=== PATIENT | female | born 1965 | race Caucasian/White ===

== ENCOUNTER 2020-07-13 12:02 | Outpatient (REF) | payer OTHER, SELFPAY ==
[2020-07-13 13:58] LABS: MANUAL DIFF FLAG NO
[2020-07-13 14:03] LABS: Basophils Percent Auto 0.6 % (0-2); Eosinophils Absolute Auto 0.2 X10*3/uL (0.0-0.4); Hematocrit 38.2 % (37-47); Hemoglobin 12.7 g/dl (12.0-16.0); Imm Gran Abs Auto 0.01 X10*3/uL (0.00-0.03); Imm Gran Pct Auto 0.2 % (0.0-0.4); Lymphocytes Absolute Auto 1.6 X10*3/uL (1.2-4.9); Lymphocytes Percent Auto 30.8 % (20-40); Mean Corpuscular HGB Conc 33.2 g/dl (31.0-35.0); Mean Corpuscular Hemoglobin 27.1 pg (27.0-33.0); Mean Corpuscular Volume 81.6 fL (80-98); Mean Platelet Volume 11.4 fL (9.4-12.3); Monocytes Absolute Auto 0.4 X10*3/uL (0.1-1.2); Monocytes Percent Auto 7.5 % (2-11); Neutrophils Percent Auto 56.9 % (45-73); Platelet Count 218 X10*3/uL (160-400); Red Blood Count 4.68 X10*6/uL (4.20-5.50); Red Cell Distribution Width 13.2 % (11.0-16.0); White Blood Count 5.2 X10*3/uL (4.8-10.8)
[2020-07-13 14:49] LABS: Creatinine Urine 82.07 mg/dL; Microalbum/Creatinine Ratio Ur 8.5 ug/mg cr
[2020-07-13 14:53] LABS: Anion Gap 13 (12-20); Blood Urea Nitrogen 15 mg/dL (9-16); Carbon Dioxide 26 mmol/L (22-29); Chloride 107 mmol/L (96-108); Cholesterol 117 mg/dL; Estimated Glomerular Filt Rate > 60; Glucose Fasting 87 mg/dL (60-99); HDL Cholesterol 40 mg/dL; LDL Cholesterol Calculated 63 mg/dl; Potassium 3.9 mmol/l (3.3-5.1); Sodium 142 mmol/L (135-145); Triglycerides 71 mg/dL
[2020-07-13 15:14] LABS: TSH reflex Free T4 0.78 mIU/mL (0.32-4.0)
[2020-07-13 15:20] LABS: Estimated Average Glucose 128 mg/dL; Hemoglobin A1C 148.6526 umol/L; Hemoglobin A1c % 6.1 %
== END 2020-07-13 12:03 | disposition home or self-care (01) ==
LOC: HO.LAB 12:02
PROVIDERS: Visit Provider Internal Medicine
DX: I10 Essential (primary) hypertension (principal); K21.9 Gastro-esophageal reflux disease without esophagitis; G47.9 Sleep disorder, unspecified; E03.9 Hypothyroidism, unspecified; F33.9 Major depressive disorder, recurrent, unspecified; E78.9 Disorder of lipoprotein metabolism, unspecified; E13.9 Other specified diabetes mellitus without complications
CPT/HCPCS: 36415; 80048; 80061; 82043; 83036; 84443; 85025

== ENCOUNTER 2020-09-28 07:40 | Outpatient (REF) | payer OTHER, SELFPAY ==
[2020-09-28 08:35] LABS: MANUAL DIFF FLAG NO
[2020-09-28 08:39] LABS: Basophils Percent Auto 0.9 % (0-2); Eosinophils Absolute Auto 0.2 X10*3/uL (0.0-0.4); Hematocrit 38.2 % (37-47); Hemoglobin 12.7 g/dl (12.0-16.0); Imm Gran Abs Auto 0.01 X10*3/uL (0.00-0.03); Imm Gran Pct Auto 0.2 % (0.0-0.4); Lymphocytes Absolute Auto 1.4 X10*3/uL (1.2-4.9); Lymphocytes Percent Auto 30.7 % (20-40); Mean Corpuscular HGB Conc 33.2 g/dl (31.0-35.0); Mean Corpuscular Hemoglobin 27.2 pg (27.0-33.0); Mean Corpuscular Volume 81.8 fL (80-98); Mean Platelet Volume 10.9 fL (9.4-12.3); Monocytes Absolute Auto 0.4 X10*3/uL (0.1-1.2); Monocytes Percent Auto 8.5 % (2-11); Neutrophils Absolute Auto 2.5 X10*3/uL (2.0-8.3); Neutrophils Percent Auto 54.7 % (45-73); Platelet Count 244 X10*3/uL (160-400); Red Blood Count 4.67 X10*6/uL (4.20-5.50); Red Cell Distribution Width 12.7 % (11.0-16.0); White Blood Count 4.6 X10*3/uL (4.8-10.8)
[2020-09-28 08:43] LABS: Glucose Urine UA NEG (NEG); Leukocyte Esterase Urine NEG (NEG); Nitrite Urine NEG (NEG); PH 5.5 (5.0-8.0); Specific Gravity - Urine 1.025 (1.005-1.025); Urine Blood NEG (NEG); Urine Ketones NEG (NEG); Urine Protein NEG (NEG-TRACE)
[2020-09-28 08:47] LABS: Appearance Urine CLEAR; Color Urine YELLOW
[2020-09-28 09:03] LABS: Alanine Aminotransferase 46 U/L (0-31); Albumin Level 4.3 g/dL (3.5-5.0); Alkaline Phosphatase 91 U/L (39-117); Anion Gap 10 (12-20); Aspartate Amino Transferase 27 U/L (5-31); Bilirubin Total 0.4 mg/dL (0.0-1.0); Blood Urea Nitrogen 18 mg/dL (9-16); Calcium 8.8 mg/dL (8.4-10.2); Carbon Dioxide 28 mmol/L (22-29); Chloride 108 mmol/L (96-108); Cholesterol 129 mg/dL; Estimated Glomerular Filt Rate > 60; Glucose Fasting 133 mg/dL (60-99); HDL Cholesterol 42 mg/dL; LDL Cholesterol Calculated 65 mg/dl; Potassium 4.1 mmol/l (3.3-5.1); Sodium 142 mmol/L (135-145); Total Protein 7.1 g/dL (6.5-8.0); Triglycerides 111 mg/dL
[2020-09-28 09:27] LABS: Free T4 (Free Thyroxine) 0.94 ng/dL (0.71-1.85); Thyroid Stimulating Hormone 3.54 uIU/mL (0.32-4.0)
[2020-09-28 22:03] LABS: Creatinine Urine 110.71 mg/dL; Microalbum/Creatinine Ratio Ur 10.8 ug/mg cr
== END 2020-09-28 07:41 | disposition home or self-care (01) ==
LOC: HO.LAB 07:40
PROVIDERS: Visit Provider Internal Medicine
DX: I10 Essential (primary) hypertension (principal); E78.00 Pure hypercholesterolemia, unspecified; E03.9 Hypothyroidism, unspecified; E11.9 Type 2 diabetes mellitus without complications
CPT/HCPCS: 36415; 80053; 80061; 81003; 82043; 84439; 84443; 85025

== ENCOUNTER → 2020-10-19 08:34 | Outpatient (BNVA) | payer OTHER, SELFPAY | PROVIDERS: PCP Internal Medicine; Visit Provider Internal Medicine Endocrinology, Diabetes & Metabolism | DX: E11.21 Type 2 diabetes mellitus with diabetic nephropathy (principal); E11.3293 Type 2 diabetes mellitus with mild nonproliferative diabetic retinopathy without macular edema, bilateral; Z79.4 Long term (current) use of insulin; I10 Essential (primary) hypertension; E78.00 Pure hypercholesterolemia, unspecified; E89.0 Postprocedural hypothyroidism | CPT/HCPCS: 82947; 99212 ==

== ENCOUNTER 2020-11-30 08:43 | Outpatient (REF) | payer OTHER, SELFPAY ==
[2020-11-30 17:29] LABS: CT PCR NOT DETECTED (Not Detect.); NG PCR NOT DETECTED (Not Detect.)
[2020-12-01 09:03] LABS: BV Int Neg Control Negative (Negative); BV Int Pos Control Positive (Positive)
== END 2020-11-30 08:44 | disposition home or self-care (01) ==
LOC: HO.LAB 08:43
PROVIDERS: Visit Provider Advanced Practice Midwife
DX: Z01.419 Encounter for gynecological examination (general) (routine) without abnormal findings (principal); E11.9 Type 2 diabetes mellitus without complications; Z79.899 Other long term (current) drug therapy; Z78.0 Asymptomatic menopausal state; Z79.4 Long term (current) use of insulin; Z11.3 Encounter for screening for infections with a predominantly sexual mode of transmission
CPT/HCPCS: 87480; 87491; 87510; 87591; 87660

== ENCOUNTER → 2020-12-07 08:19 | Outpatient (BNVA) | payer OTHER, SELFPAY | PROVIDERS: PCP Internal Medicine; Visit Provider Nurse Practitioner Gerontology | DX: E11.21 Type 2 diabetes mellitus with diabetic nephropathy (principal); Z79.4 Long term (current) use of insulin; I10 Essential (primary) hypertension | CPT/HCPCS: 82947; 99212 ==

== ENCOUNTER → 2020-12-22 07:45 | Outpatient (BNVA) | payer OTHER, SELFPAY | PROVIDERS: PCP Internal Medicine; Visit Provider Internal Medicine Endocrinology, Diabetes & Metabolism | DX: E11.3293 Type 2 diabetes mellitus with mild nonproliferative diabetic retinopathy without macular edema, bilateral (principal); E11.21 Type 2 diabetes mellitus with diabetic nephropathy; Z79.4 Long term (current) use of insulin; I10 Essential (primary) hypertension; E78.00 Pure hypercholesterolemia, unspecified; E89.0 Postprocedural hypothyroidism | CPT/HCPCS: 82947; 99212 ==

== ENCOUNTER 2021-02-22 07:29 | Outpatient (REF) | payer OTHER, SELFPAY ==
[2021-02-22 08:30] LABS: MANUAL DIFF FLAG NO
[2021-02-22 08:37] LABS: Basophils Percent Auto 0.4 % (0-2); Eosinophils Absolute Auto 0.2 X10*3/uL (0.0-0.4); Eosinophils Percent Auto 2.1 % (0-4); Hematocrit 39.1 % (37-47); Imm Gran Abs Auto 0.01 X10*3/uL (0.00-0.03); Imm Gran Pct Auto 0.1 % (0.0-0.4); Lymphocytes Absolute Auto 1.4 X10*3/uL (1.2-4.9); Lymphocytes Percent Auto 19.3 % (20-40); Mean Corpuscular HGB Conc 33.2 g/dl (31.0-35.0); Mean Corpuscular Hemoglobin 26.8 pg (27.0-33.0); Mean Corpuscular Volume 80.6 fL (80-98); Mean Platelet Volume 11.1 fL (9.4-12.3); Monocytes Absolute Auto 0.4 X10*3/uL (0.1-1.2); Neutrophils Absolute Auto 5.2 X10*3/uL (2.0-8.3); Neutrophils Percent Auto 72.1 % (45-73); Platelet Count 247 X10*3/uL (160-400); Red Blood Count 4.85 X10*6/uL (4.20-5.50); Red Cell Distribution Width 13.9 % (11.0-16.0); White Blood Count 7.2 X10*3/uL (4.8-10.8)
[2021-02-22 08:50] LABS: Estimated Average Glucose 146 mg/dL; Hemoglobin A1c % 6.7 %
[2021-02-22 08:56] LABS: Alanine Aminotransferase 21 U/L (0-31); Albumin Level 4.5 g/dL (3.5-5.0); Alkaline Phosphatase 85 U/L (39-117); Anion Gap 12 (12-20); Aspartate Amino Transferase 21 U/L (5-31); Bilirubin Total 0.9 mg/dL (0.0-1.0); Blood Urea Nitrogen 15 mg/dL (9-16); Calcium 9.4 mg/dL (8.4-10.2); Carbon Dioxide 26 mmol/L (22-29); Chloride 106 mmol/L (96-108); Cholesterol 127 mg/dL; Estimated Glomerular Filt Rate > 60; Glucose Fasting 128 mg/dL (60-99); HDL Cholesterol 42 mg/dL; LDL Cholesterol Calculated 73 mg/dl; Potassium 3.9 mmol/L (3.3-5.1); Sodium 140 mmol/L (135-145); Total Protein 7.4 g/dL (6.5-8.0); Triglycerides 64 mg/dL
[2021-02-22 09:01] LABS: Glucose Urine UA NEG (NEG); Leukocyte Esterase Urine NEG (NEG); Nitrite Urine NEG (NEG); Urine Blood NEG (NEG); Urine Ketones NEG (NEG); Urine Protein NEG (NEG-TRACE)
[2021-02-22 09:04] LABS: Appearance Urine HAZY; Color Urine YELLOW
[2021-02-22 09:15] LABS: Creatinine Urine 194.49 mg/dL; Microalbum/Creatinine Ratio Ur 12.8 ug/mg cr
[2021-02-22 09:31] LABS: Thyroid Stimulating Hormone 1.99 uIU/mL (0.32-4.0)
== END 2021-02-22 07:30 | disposition home or self-care (01) ==
LOC: HO.LAB 07:29
PROVIDERS: PCP Internal Medicine; Visit Provider Internal Medicine
DX: I10 Essential (primary) hypertension (principal); K21.9 Gastro-esophageal reflux disease without esophagitis; E78.00 Pure hypercholesterolemia, unspecified; E11.9 Type 2 diabetes mellitus without complications; E89.0 Postprocedural hypothyroidism; E66.3 Overweight; Z79.4 Long term (current) use of insulin
CPT/HCPCS: 36415; 80053; 80061; 81003; 82043; 83036; 84439; 84443; 85025

== ENCOUNTER 2021-04-05 13:19 | Outpatient (REF) | payer OTHER, SELFPAY ==
--- NOTE | ~2021-04-05 | MM_ITS ---
EXAMINATION: MM SCREENING DIGITAL BREAST TOMOSYNTHESIS, BILATERAL CLINICAL INFORMATION: Screening. Asymptomatic. The lifetime risk of breast cancer based on the Tyrer-Cuzick Model is 8%. COMPARISON: Mammography: 01/27/2020, 01/24/2019, 07/26/2018, 01/25/2018, 01/11/2018 TECHNIQUE: Digital breast tomosynthesis is performed in both the craniocaudal and mediolateral oblique views along with computer-aided detection (CAD). Synthesized 2D images are generated from the tomosynthesis. FINDINGS: There are scattered areas of fibroglandular density (ACR BI-RADS breast composition Category b). There are no significant masses, abnormal calcifications, or other abnormalities. No developing density. Skin contours are smooth. No significant changes. MM/MM tomosynthesis screening BI IMPRESSION: No mammographic evidence of malignancy. ASSESSMENT: BI-RADS 1: Negative RECOMMENDATION: Routine annual mammography screening. This patient's information was entered into a reminder system with a target due date for their next mammogram.
== END 2021-04-05 13:20 | disposition home or self-care (01) ==
LOC: HO.MAMMO 13:19
PROVIDERS: Visit Provider Internal Medicine
DX: Z12.31 Encounter for screening mammogram for malignant neoplasm of breast (principal)
CPT/HCPCS: 77063; 77067

== ENCOUNTER → 2021-07-05 07:52 | Outpatient (BNVA) | payer OTHER, SELFPAY | PROVIDERS: PCP Internal Medicine; Visit Provider Nurse Practitioner Gerontology | DX: E11.21 Type 2 diabetes mellitus with diabetic nephropathy (principal); E11.65 Type 2 diabetes mellitus with hyperglycemia; E78.00 Pure hypercholesterolemia, unspecified; E89.0 Postprocedural hypothyroidism; E66.09 Other obesity due to excess calories; I10 Essential (primary) hypertension; Z79.4 Long term (current) use of insulin; Z68.30 Body mass index [BMI] 30.0-30.9, adult | CPT/HCPCS: 82947; 83036; 99212 ==

== ENCOUNTER → 2021-10-25 08:16 | Outpatient (BNVA) | payer OTHER, SELFPAY | PROVIDERS: PCP Internal Medicine; Visit Provider Nurse Practitioner Gerontology | DX: E11.65 Type 2 diabetes mellitus with hyperglycemia (principal); E11.21 Type 2 diabetes mellitus with diabetic nephropathy; E78.00 Pure hypercholesterolemia, unspecified; I10 Essential (primary) hypertension; Z79.4 Long term (current) use of insulin; E89.0 Postprocedural hypothyroidism; E66.09 Other obesity due to excess calories; Z68.29 Body mass index [BMI] 29.0-29.9, adult | CPT/HCPCS: 82947; 99212 ==

== ENCOUNTER 2021-10-29 09:02 | Outpatient (REF) | payer OTHER, SELFPAY ==
[2021-10-29 10:39] LABS: Vitamin D 25-OH Total 42.7 ng/mL (>30)
== END 2021-10-29 09:03 | disposition home or self-care (01) ==
LOC: HO.LAB 09:02
PROVIDERS: PCP Internal Medicine Endocrinology, Diabetes & Metabolism; Visit Provider Nurse Practitioner Gerontology
DX: E55.9 Vitamin D deficiency, unspecified (principal)
CPT/HCPCS: 36415; 82306

== ENCOUNTER → 2021-12-06 09:29 | Outpatient (BNVA) | payer OTHER, SELFPAY | PROVIDERS: Visit Provider Advanced Practice Midwife | DX: Z13.89 Encounter for screening for other disorder (principal) ==

== ENCOUNTER → 2022-01-24 12:45 | Outpatient (BNVA) | payer OTHER, SELFPAY | PROVIDERS: PCP Internal Medicine; Visit Provider Nurse Practitioner Gerontology | DX: E11.65 Type 2 diabetes mellitus with hyperglycemia (principal); E11.21 Type 2 diabetes mellitus with diabetic nephropathy; E78.00 Pure hypercholesterolemia, unspecified; E89.0 Postprocedural hypothyroidism; E66.09 Other obesity due to excess calories; I10 Essential (primary) hypertension; Z79.4 Long term (current) use of insulin; Z68.29 Body mass index [BMI] 29.0-29.9, adult | CPT/HCPCS: 82947; 83036; 99212 ==

== ENCOUNTER 2022-03-07 07:38 | Outpatient (REF) | payer OTHER, SELFPAY ==
[2022-03-07 07:56] LABS: MANUAL DIFF FLAG NO
[2022-03-07 08:19] LABS: Basophils Percent Auto 0.4 % (0-2); Eosinophils Absolute Auto 0.1 X10*3/uL (0.0-0.4); Eosinophils Percent Auto 2.7 % (0-4); Hematocrit 38.5 % (37.0-47.0); Hemoglobin 12.6 g/dl (12.0-16.0); Imm Gran Abs Auto 0.01 X10*3/uL (0.00-0.03); Imm Gran Pct Auto 0.2 % (0.0-0.4); Lymphocytes Absolute Auto 1.2 X10*3/uL (1.2-4.9); Lymphocytes Percent Auto 24.7 % (20-40); Mean Corpuscular HGB Conc 32.7 g/dl (31.0-35.0); Mean Corpuscular Hemoglobin 26.5 pg (27.0-33.0); Mean Corpuscular Volume 80.9 fL (80.0-98.0); Mean Platelet Volume 10.8 fL (9.4-12.3); Monocytes Absolute Auto 0.4 X10*3/uL (0.1-1.2); Monocytes Percent Auto 8.2 % (2-11); Neutrophils Absolute Auto 3.1 x10*3/uL (2.0-8.3); Neutrophils Percent Auto 63.8 % (45-73); Platelet Count 223 X10*3/uL (160-400); Red Blood Count 4.76 X10*6/uL (4.20-5.50); Red Cell Distribution Width 13.9 % (11.0-16.0); White Blood Count 4.8 X10*3/uL (4.8-10.8)
[2022-03-07 08:35] LABS: Appearance Urine HAZY; Color Urine YELLOW; Glucose Urine UA NEG (NEG); Leukocyte Esterase Urine NEG (NEG); Nitrite Urine NEG (NEG); Specific Gravity - Urine 1.015 (1.005-1.025); Urine Blood NEG (NEG); Urine Ketones NEG (NEG); Urine Protein NEG (NEG-TRACE)
[2022-03-07 08:43] LABS: Alanine Aminotransferase 24 U/L (0-31); Albumin Level 4.2 g/dL (3.5-5.0); Alkaline Phosphatase 92 U/L (39-117); Anion Gap 11 (12-20); Aspartate Amino Transferase 20 U/L (5-31); Bilirubin Total 0.5 mg/dL (0.0-1.0); Blood Urea Nitrogen 21 mg/dL (9-16); Calcium 9.2 mg/dL (8.4-10.2); Carbon Dioxide 26 mmol/L (22-29); Chloride 108 mmol/L (96-108); Cholesterol 114 mg/dL; Estimated Glomerular Filt Rate > 60; Glucose Fasting 119 mg/dL (60-99); HDL Cholesterol 39 mg/dL; LDL Cholesterol Calculated 63 mg/dl; Potassium 4.6 mmol/L (3.3-5.1); Sodium 140 mmol/L (135-145); Total Protein 6.8 g/dL (6.5-8.0); Triglycerides 61 mg/dL
[2022-03-07 08:57] LABS: Creatinine Urine 77.52 mg/dL; Microalbumin Urine < 5.0 mg/L
[2022-03-07 09:05] LABS: Free T4 (Free Thyroxine) 0.96 ng/dL (0.71-1.85)
[2022-03-07 09:06] LABS: Thyroid Stimulating Hormone 1.32 uIU/mL (0.32-4.0); Vitamin D 25-OH Total 38.5 ng/mL (>30)
[2022-03-08 23:51] LABS: LDL Cholesterol Direct 65 mg/dL (<100)
== END 2022-03-07 07:39 | disposition home or self-care (01) ==
LOC: HO.LAB 07:38
PROVIDERS: Nurse Practitioner Gerontology; PCP Internal Medicine; Visit Provider Internal Medicine
DX: E11.65 Type 2 diabetes mellitus with hyperglycemia (principal); E55.9 Vitamin D deficiency, unspecified; I10 Essential (primary) hypertension; Z79.4 Long term (current) use of insulin
CPT/HCPCS: 36415; 80053; 80061; 81003; 82043; 82306; 83721; 84439; 84443; 85025

== ENCOUNTER 2022-04-11 10:17 | Outpatient (REF) | payer OTHER, SELFPAY ==
--- NOTE | ~2022-04-11 | MM_ITS ---
EXAMINATION: MM SCREENING DIGITAL BREAST TOMOSYNTHESIS, BILATERAL CLINICAL INFORMATION: Screening. Asymptomatic. The lifetime risk of breast cancer based on the Tyrer-Cuzick Model is 6%. COMPARISON: Mammography: 04/05/2021, 01/27/2020, 01/24/2019 TECHNIQUE: Digital breast tomosynthesis is performed in both the craniocaudal and mediolateral oblique views along with computer-aided detection (CAD). Synthesized 2D images are generated from the tomosynthesis. Additional left CC view is provided. FINDINGS: There are scattered areas of fibroglandular density (ACR BI-RADS breast composition Category b). There are no significant masses, abnormal calcifications, or other abnormalities. No architectural abnormality or developing density or significant changes. MM/MM tomosynthesis screening BI IMPRESSION: No mammographic evidence of malignancy. ASSESSMENT: BI-RADS 1: Negative RECOMMENDATION: Routine annual mammography screening. This patient's information was entered into a reminder system with a target due date for their next mammogram.
== END 2022-04-11 10:18 | disposition home or self-care (01) ==
LOC: HO.MAMMO 10:17
PROVIDERS: PCP Internal Medicine; Visit Provider Internal Medicine
DX: Z12.31 Encounter for screening mammogram for malignant neoplasm of breast (principal)
CPT/HCPCS: 77063; 77067

== ENCOUNTER 2022-07-11 09:14 | Outpatient (REF) | payer OTHER, SELFPAY ==
[2022-07-11 09:22] LABS: MANUAL DIFF FLAG NO
[2022-07-11 10:48] LABS: Basophils Percent Auto 0.7 % (0-2); Eosinophils Absolute Auto 0.2 X10*3/uL (0.0-0.4); Eosinophils Percent Auto 2.9 % (0-4); Hematocrit 38.8 % (37.0-47.0); Imm Gran Abs Auto 0.02 X10*3/uL (0.00-0.03); Imm Gran Pct Auto 0.3 % (0.0-0.4); Lymphocytes Absolute Auto 1.4 X10*3/uL (1.2-4.9); Lymphocytes Percent Auto 24.1 % (20-40); Mean Corpuscular HGB Conc 33.5 g/dl (31.0-35.0); Mean Corpuscular Hemoglobin 26.5 pg (27.0-33.0); Mean Corpuscular Volume 79.2 fL (80.0-98.0); Mean Platelet Volume 11.2 fL (9.4-12.3); Monocytes Absolute Auto 0.4 X10*3/uL (0.1-1.2); Monocytes Percent Auto 6.7 % (2-11); Neutrophils Absolute Auto 3.8 x10*3/uL (2.0-8.3); Neutrophils Percent Auto 65.3 % (45-73); Platelet Count 224 X10*3/uL (160-400); Red Cell Distribution Width 13.4 % (11.0-16.0); White Blood Count 5.8 X10*3/uL (4.8-10.8)
[2022-07-11 10:53] LABS: Appearance Urine Clear; Color Urine Yellow; Glucose Urine UA Negative (Negative); Leukocyte Esterase Urine Negative (Negative); Nitrite Urine Negative (Negative); Specific Gravity - Urine 1.015 (1.005-1.025); Urine Blood Negative (Negative); Urine Ketones Negative (Negative); Urine Protein Negative (Neg-Trace)
[2022-07-11 11:05] LABS: Estimated Average Glucose 151 mg/dL; Hemoglobin A1c % 6.9 %
[2022-07-11 11:22] LABS: Alanine Aminotransferase 24 U/L (0-31); Albumin Level 4.5 g/dL (3.5-5.0); Alkaline Phosphatase 99 U/L (39-117); Anion Gap 13 (12-20); Aspartate Amino Transferase 19 U/L (5-31); Bilirubin Total 0.4 mg/dL (0.0-1.0); Blood Urea Nitrogen 20 mg/dL (9-16); Calcium 9.1 mg/dL (8.4-10.2); Carbon Dioxide 25 mmol/L (22-29); Chloride 108 mmol/L (96-108); Cholesterol 120 mg/dL; Estimated Glomerular Filt Rate > 60; Glucose Fasting 104 mg/dL (60-99); HDL Cholesterol 41 mg/dL; LDL Cholesterol Calculated 68 mg/dl; Potassium 4.3 mmol/L (3.3-5.1); Sodium 142 mmol/L (135-145); Total Protein 7.1 g/dL (6.5-8.0); Triglycerides 57 mg/dL
[2022-07-11 11:43] LABS: Free T4 (Free Thyroxine) 0.97 ng/dL (0.71-1.85); Thyroid Stimulating Hormone 1.42 uIU/mL (0.32-4.0); Vitamin D 25-OH Total 40.6 ng/mL (>30)
[2022-07-11 12:28] LABS: Creatinine Urine 67.96 mg/dL; Microalbumin Urine < 5.0 mg/L
== END 2022-07-11 09:15 | disposition home or self-care (01) ==
LOC: HO.LAB 09:14
PROVIDERS: PCP Internal Medicine; Visit Provider Internal Medicine
DX: E11.9 Type 2 diabetes mellitus without complications (principal); I10 Essential (primary) hypertension; E03.9 Hypothyroidism, unspecified; E78.00 Pure hypercholesterolemia, unspecified; E55.9 Vitamin D deficiency, unspecified
CPT/HCPCS: 36415; 80053; 80061; 81003; 82043; 82306; 83036; 84439; 84443; 85025

== ENCOUNTER 2022-07-18 13:52 | Outpatient (REF) | payer OTHER, SELFPAY ==
--- NOTE | ~2022-07-18 | XR_ITS ---
EXAMINATION: XR LUMBOSACRAL SPINE CLINICAL INFORMATION: Low back pain. COMPARISON: None TECHNIQUE: Three views of the lumbosacral spine. FINDINGS: There are 5 [id number]-[id number] lumbar vertebra. No acute fracture, spondylolisthesis, or spondylolysis is identified. Pedicles are intact. No significant sacroiliac joint abnormality seen. There is narrowing of the L4-L5 and L5-S1 disc spaces with some marginal spurring. There is facet arthropathy seen bilaterally at the L5-S1 level. XR/XR lumbar spine 2-3V IMPRESSION: Lumbar spondylosis at L4 through S1 as described.
== END 2022-07-18 13:53 | disposition home or self-care (01) ==
LOC: HO.XRAY 13:52
PROVIDERS: PCP Internal Medicine; Visit Provider Internal Medicine
DX: M54.50 Low back pain, unspecified (principal)
CPT/HCPCS: 72100

== ENCOUNTER 2022-11-07 07:01 | Outpatient (REF) | payer OTHER, SELFPAY ==
[2022-11-07 07:11] LABS: MANUAL DIFF FLAG NO
[2022-11-07 07:44] LABS: Basophils Percent Auto 0.7 % (0-2); Eosinophils Absolute Auto 0.3 X10*3/uL (0.0-0.4); Eosinophils Percent Auto 5.1 % (0-4); Hematocrit 38.2 % (37.0-47.0); Hemoglobin 12.6 g/dl (12.0-16.0); Imm Gran Abs Auto 0.04 X10*3/uL (0.00-0.03); Imm Gran Pct Auto 0.7 % (0.0-0.4); Lymphocytes Absolute Auto 1.4 X10*3/uL (1.2-4.9); Lymphocytes Percent Auto 24.9 % (20-40); Mean Corpuscular Volume 78.9 fL (80.0-98.0); Mean Platelet Volume 11.1 fL (9.4-12.3); Monocytes Absolute Auto 0.4 X10*3/uL (0.1-1.2); Monocytes Percent Auto 7.9 % (2-11); Neutrophils Absolute Auto 3.3 x10*3/uL (2.0-8.3); Neutrophils Percent Auto 60.7 % (45-73); Platelet Count 232 X10*3/uL (160-400); Red Blood Count 4.84 X10*6/uL (4.20-5.50); Red Cell Distribution Width 13.5 % (11.0-16.0); White Blood Count 5.5 X10*3/uL (4.8-10.8)
[2022-11-07 07:53] LABS: Estimated Average Glucose 151 mg/dL; Hemoglobin A1c % 6.9 %
[2022-11-07 08:20] LABS: Appearance Urine Clear; Color Urine Yellow; Glucose Urine UA Negative (Negative); Leukocyte Esterase Urine Negative (Negative); Nitrite Urine Negative (Negative); Urine Blood Negative (Negative); Urine Ketones Negative (Negative); Urine Protein Negative (Neg-Trace)
[2022-11-07 08:24] LABS: Alanine Aminotransferase 20 U/L (0-31); Albumin Level 4.1 g/dL (3.5-5.0); Alkaline Phosphatase 113 U/L (39-117); Anion Gap 11 (12-20); Aspartate Amino Transferase 17 U/L (5-31); Bilirubin Total 0.5 mg/dL (0.0-1.0); Blood Urea Nitrogen 18 mg/dL (9-16); Calcium 8.8 mg/dL (8.4-10.2); Carbon Dioxide 26 mmol/L (22-29); Chloride 108 mmol/L (96-108); Cholesterol 110 mg/dL; Estimated Glomerular Filt Rate > 60; Glucose Fasting 184 mg/dL (60-99); HDL Cholesterol 36 mg/dL; LDL Cholesterol Calculated 63 mg/dl; Potassium 4.2 mmol/L (3.3-5.1); Sodium 141 mmol/L (135-145); Total Protein 6.7 g/dL (6.5-8.0); Triglycerides 56 mg/dL
[2022-11-07 08:44] LABS: Free T4 (Free Thyroxine) 0.99 ng/dL (0.71-1.85); Thyroid Stimulating Hormone 1.66 uIU/mL (0.32-4.0); Vitamin D 25-OH Total 40.5 ng/mL (>30)
[2022-11-07 08:46] LABS: Creatinine Urine 96.38 mg/dL; Microalbum/Creatinine Ratio Ur 8.3 ug/mg cr
== END 2022-11-07 07:02 | disposition home or self-care (01) ==
LOC: HO.LAB 07:01
PROVIDERS: PCP Internal Medicine; Visit Provider Internal Medicine
DX: E11.9 Type 2 diabetes mellitus without complications (principal); E03.9 Hypothyroidism, unspecified; E78.00 Pure hypercholesterolemia, unspecified; R30.0 Dysuria; E55.9 Vitamin D deficiency, unspecified; I10 Essential (primary) hypertension
CPT/HCPCS: 36415; 80053; 80061; 81003; 82043; 82306; 83036; 84439; 84443; 85025

== ENCOUNTER 2023-04-21 09:34 | Outpatient (REF) | payer OTHER, SELFPAY ==
--- NOTE | ~2023-04-21 | MM_ITS ---
EXAMINATION: MM SCREENING DIGITAL BREAST TOMOSYNTHESIS, BILATERAL CLINICAL INFORMATION: Screening. Asymptomatic. The lifetime risk of breast cancer based on the Tyrer-Cuzick Model is 6.8%. COMPARISON: Mammography: This study is compared with prior exams dating back to 2018. TECHNIQUE: Digital breast tomosynthesis is performed in both the craniocaudal and mediolateral oblique views along with computer-aided detection (CAD). Synthesized 2D images are generated from the tomosynthesis. FINDINGS: There are scattered areas of fibroglandular density (ACR BI-RADS breast composition Category b). There are no significant masses, abnormal calcifications, or other abnormalities. MM/MM tomosynthesis screening BI IMPRESSION: No mammographic evidence of malignancy. ASSESSMENT: BI-RADS BI-RADS 1 - Negative RECOMMENDATION: Routine annual mammography screening. 1 year F/U This examination should not preclude the clinical evaluation of a suspicious palpable abnormality. This patient's information was entered into a reminder system with a target due date for their next mammogram.
== END 2023-04-21 09:35 | disposition home or self-care (01) ==
LOC: HO.MAMMO 09:34
PROVIDERS: PCP Internal Medicine; Visit Provider Internal Medicine
DX: Z12.31 Encounter for screening mammogram for malignant neoplasm of breast (principal)
CPT/HCPCS: 77063; 77067

== ENCOUNTER → 2023-04-21 10:00 | Outpatient (BNV) | payer OTHER, SELFPAY | PROVIDERS: PCP Internal Medicine; Visit Provider Radiology Diagnostic Radiology | DX: Z12.31 Encounter for screening mammogram for malignant neoplasm of breast (principal) | CPT/HCPCS: 77063; 77067 ==

== ENCOUNTER → 2023-04-28 13:09 | Outpatient (BNVA) | payer OTHER, SELFPAY | PROVIDERS: PCP Internal Medicine; Visit Provider Advanced Practice Midwife ==

== ENCOUNTER 2023-05-19 08:09 | Outpatient (REF) | payer OTHER, SELFPAY ==
[2023-05-19 08:20] LABS: MANUAL DIFF FLAG NO
[2023-05-19 08:35] LABS: Basophils Absolute Auto 0.1 X10*3/uL (0.0-0.2); Eosinophils Absolute Auto 0.2 X10*3/uL (0.0-0.4); Eosinophils Percent Auto 4.3 % (0-4); Hematocrit 38.5 % (37.0-47.0); Hemoglobin 12.9 g/dl (12.0-16.0); Imm Gran Abs Auto 0.01 X10*3/uL (0.00-0.03); Imm Gran Pct Auto 0.2 % (0.0-0.4); Lymphocytes Absolute Auto 1.4 X10*3/uL (1.2-4.9); Lymphocytes Percent Auto 27.4 % (20-40); Mean Corpuscular HGB Conc 33.5 g/dl (31.0-35.0); Mean Corpuscular Hemoglobin 27.2 pg (27.0-33.0); Mean Corpuscular Volume 81.1 fL (80.0-98.0); Monocytes Absolute Auto 0.4 X10*3/uL (0.1-1.2); Monocytes Percent Auto 7.8 % (2-11); Neutrophils Absolute Auto 3.1 x10*3/uL (2.0-8.3); Neutrophils Percent Auto 59.3 % (45-73); Platelet Count 223 X10*3/uL (160-400); Red Blood Count 4.75 X10*6/uL (4.20-5.50); Red Cell Distribution Width 13.4 % (11.0-16.0); White Blood Count 5.1 X10*3/uL (4.8-10.8)
[2023-05-19 08:43] LABS: Estimated Average Glucose 134 mg/dL; Hemoglobin A1c % 6.3 % (<6.0)
[2023-05-19 10:02] LABS: Alanine Aminotransferase 24 U/L (0-31); Albumin Level 4.3 g/dL (3.5-5.0); Alkaline Phosphatase 91 U/L (39-117); Anion Gap 14 (12-20); Aspartate Amino Transferase 23 U/L (5-31); Bilirubin Total 0.6 mg/dL (0.0-1.0); Blood Urea Nitrogen 14 mg/dL (9-16); Calcium 9.5 mg/dL (8.4-10.2); Carbon Dioxide 23 mmol/L (22-29); Chloride 107 mmol/L (96-108); Cholesterol 116 mg/dL (<200); Estimated Glomerular Filt Rate > 60; Glucose Fasting 111 mg/dL (60-99); HDL Cholesterol 41 mg/dL (>40); LDL Cholesterol Calculated 61 mg/dL (<100); Potassium 3.8 mmol/L (3.3-5.1); Sodium 140 mmol/L (135-145); Total Protein 7.3 g/dL (6.5-8.0); Triglycerides 71 mg/dL (<150)
[2023-05-19 10:03] LABS: Appearance Urine Clear; Color Urine Yellow; Glucose Urine UA Negative (Negative); Leukocyte Esterase Urine Negative (Negative); Nitrite Urine Negative (Negative); Specific Gravity - Urine 1.015 (1.005-1.025); Urine Blood Negative (Negative); Urine Ketones Negative (Negative); Urine Protein Negative (Neg-Trace)
[2023-05-19 10:19] LABS: Free T4 (Free Thyroxine) 0.86 ng/dL (0.71-1.85); Thyroid Stimulating Hormone 1.83 uIU/mL (0.32-4.0); Vitamin D 25-OH Total 46.1 ng/mL (>30)
[2023-05-19 10:48] LABS: Creatinine Urine 93.23 mg/dL; Microalbum/Creatinine Ratio Ur 5.3 ug/mg cr (<30)
== END 2023-05-19 08:10 | disposition home or self-care (01) ==
LOC: HO.LAB 08:09
PROVIDERS: PCP Internal Medicine; Visit Provider Internal Medicine
DX: E11.9 Type 2 diabetes mellitus without complications (principal); E55.9 Vitamin D deficiency, unspecified; E03.9 Hypothyroidism, unspecified; E78.00 Pure hypercholesterolemia, unspecified; R30.0 Dysuria; I10 Essential (primary) hypertension
CPT/HCPCS: 36415; 80053; 80061; 81003; 82043; 82306; 82570; 83036; 84439; 84443; 85025

== ENCOUNTER 2023-05-26 10:57 | Outpatient (AMB) | payer OTHER, SELFPAY ==
[2023-05-26 12:32] VITALS: BP 120/78; PULSE 76; O2SAT 98; BMI 27.4
--- NOTE | 2023-05-26 12:32 | MHC.PC.OV ---
Vital Signs 05/26/23 12:32 Height 5 ft 1 in Weight 145 lb 2 oz BMI 27.4 BP 120/78 Blood Pressure Location Lt brachial Position Sitting Pulse 76 Pulse Source Pulse Oximeter Pulse Oximetry (%) 98 Oxygen Delivery Method Room Air Intake Visit Reasons: 4m F/U DM, HTN, hyperlipidemia, lumbar spondylosis Applications Chemist Required: No Accompanied by: Self / Same As Patient Allergies Penicillins [PENICILLINS] Allergy (Unknown, Verified 05/26/23 12:50) RASH Medication List - Last Reconciled 05/26/23 by Jeremias Cardenas MD alcohol swabs pad topical atorvastatin 10 mg PO DAILY 30 days blood sugar diagnostic 3 times a day blood sugar diagnostic (FreeStyle Lite Strips) As directed three times a day cholecalciferol (vitamin D3) 25 mcg PO DAILY 90 days citalopram 20 mg PO DAILY dulaglutide (Trulicity) 3 mg (0.5 mL) subcut QWEEK 28 days empagliflozin (Jardiance) 25 mg PO QAM FreeStyle Lancets (lancets) USE DIRECTED 3X/DAY NS hydroxyzine HCl 25 mg PO DAILY insulin syringe-needle U-100 As directed Lantus Solostar U-100 Insulin (insulin glargine) 16 units (0.16 mL) subcut DAILY 90 days NS levothyroxine 75 mcg PO DAILY 90 days mirtazapine 7.5 mg PO BEDTIME omeprazole 20 mg PO DAILY 90 days pen needle, diabetic daily pioglitazone 30 mg PO DAILY 30 days trazodone 100 mg PO BEDTIME PRN Tobacco use date assessed: 05/26/23 Dental Screening Dental Screen Date: 05/26/23 Did you have a dental visit in the last 12 months?: Yes Did you have a dental problem in the last 6 months where you did not have access to dental care?: No Was dental information given to patient?: Patient has dentist HPI 4m F/U DM, HTN, hyperlipidemia, lumbar spondylosis HPI Details Patient comes in today for her follow up visit States that she feels okay She denies any headaches or dizziness Denies any chest pains, no SOB No nausea/vomiting but relates (+) epigastric pain over the past week, mostly after she eats States that she is still taking her Omeprazole but the Rx does not seem to be helping and she would like to get a prescription for some Sucralfate that she has taken for abdominal pain in the past No change in bowel habits noted Still has recurrent low back pain and would like to get a refill on her Tizandine, which she states has helped her a lot in the past Also needs her glucometer test strips and lancets Rx refilled Had her follow up labs done last week - to discuss her results [facility] Medical History Benign essential hypertension Obesity (BMI 30-39.9) DM2 (diabetes mellitus, type 2) Diabetes mellitus Diabetic nephropathy associated with type 2 diabetes mellitus retirement (current) use of insulin GERD without esophagitis Pure hypercholesterolemia Diabetes type 2, controlled Hypothyroidism Depression, major, recurrent Surgical History History of removal of cyst History of colonoscopy History of total hysterectomy Family History Father No problems noted. Mother HTN (hypertension) Brother No problems noted. Sister No problems noted. Sister No problems noted. Daughter No problems noted. Son No problems noted. Son No problems noted. Son No problems noted. Social History Household Members: Spouse Housing: Apartment Alcohol intake: never Patient Tobacco Use Status: Never used Tobacco e-Cigarette/Vaping Use: Never Used Second Hand Smoke Exposure: Yes service: No Current occupational status: disabled Gender identity: Female Cognitive needs: No Hearing needs: No Vision needs: No Female Reproductive History Menstrual Age of Menarche: 13 Questionnaire PHQ-9 Over the last 2 weeks, how often have you been bothered by any of the following problems? 1. Little interest or pleasure in doing things: not at all 2. Feeling down, depressed, or hopeless: not at all 3. Trouble falling or staying asleep, or sleeping too much: not at all 4. Feeling tired or having little energy: not at all 5. Poor appetite or overeating: not at all 6. Feeling bad about yourself - or that you are a failure or have let yourself or your family down: not at all 7. Trouble concentrating on things, such as reading the newspaper or watching television: not at all 8. Moving or speaking so slowly that other people could have noticed. Or the opposite - being so fidgety or restless that you have been moving around a lot more than usual: not at all 9. Thoughts that you would be better off or of hurting yourself in some way: not at all Total score: 0 Depression Screening Interpretation: Negative 06216 - PHQ-9 Billing: Yes Source: Developed by Drs. Slava Velez, Tere Moreno, Neel Chris and colleagues, with an educational arlette from [employer]. Thrive Questionnaire Date Thrive assessed: 05/26/23 I am a: Patient What is your living situation today?: I have a steady place to live Within the past 12 months, did the food you bought not last and you didn't have the money to get more?: Never true Within the past 12 months, did you worry whether your food would run out before you got money to buy more?: Never true Do you have trouble paying for medicines?: No Do you have trouble getting transportation to medical appointments?: No Do you have trouble paying your heating and electricity bill?: No Do you have trouble taking care of your child, family member or friend?: No Do you have trouble with day-to-day activities such as bathing, preparing meals, shopping, managing finances, etc.?: No Are you currently unemployed and looking for a job?: No Are you interested in more education?: No Please select the resources that you would like help with: None Currently or been in a relationship where the following occur: no concerns reported AUDIT C Alcohol Use Questionnaire (AUDIT-C) 1. How often do you have a drink containing alcohol?: Never 3. How often do you have six or more drinks on one occasion?: Never Total Score: 0 Score Reviewed/Action Taken: Yes JONN-7 AMB Questionnaire JONN-7 Date JONN - 7 assessed: 05/26/23 Feeling nervous, anxious, or on edge: 0 = Not at all Not being able to stop or control worryin = Not at all Worrying too much about different things: 0 = Not at all Trouble relaxin = Not at all Being so restless that it is hard to sit still: 0 = Not at all Becoming easily annoyed or irritable: 0 = Not at all Feeling afraid as if something awful might happen: 0 = Not at all Total JONN-7 score (0-4 normal; 5-9 mild; 10-14 moderate; 15-21 severe): 0 Source: Developed by Drs. Slava Velez, Tere Moreno, Neel Chris and colleagues, with an educational arlette from [employer]. Review of Systems Const Denies chills, Denies fatigue, Denies fever(s) and Denies headache(s) ENT Denies dysphagia, Denies dizziness, Denies otalgia, Denies headache(s), Denies neck pain, Denies odynophagia and Denies sore throat Card Denies chest pain, Denies palpitations and Denies dyspnea Resp Denies cough and Denies dyspnea GI Reports abdominal pain (recurrent over the epigastric area lately, usually after she eats), Denies constipation, Denies dysphagia, Denies heartburn, Denies diarrhea, Denies nausea, Denies odynophagia and Denies vomiting Denies difficulty voiding, Denies nocturia and Denies dysuria Musc Reports back pain (lower back - on and off), Denies neck pain and Reports radiating pain into limb (into both lower extremities occasionally) Skin/Breast Denies rash Neuro Denies dizziness and Denies headache(s) Endo Denies fatigue and Denies palpitations Physical exam (Primary Care) Vital Signs: Last Vital Signs Pulse 76 05/26/23 12:32 BP 120/78 05/26/23 12:32 Pulse Ox 98 05/26/23 12:32 Oxygen Delivery Method Room Air 05/26/23 12:32 BMI result Body Mass Index 27.4 Tobacco/Smoking Status: Tobacco use Status Tobacco use date assessed 05/26/23 05/26/23 12:38 Patient Tobacco Use Status Never used Tobacco 05/26/23 12:38 e-Cigarette/Vaping Use Never Used 05/26/23 12:38 PHQ-9: PHQ-9 Score PHQ-9: Total score 0 05/26/23 12:38 Depression Screening Interpretation: Negative Thrive Assessment: Date of Thrive Assessment Date Thrive assessed 05/26/23 05/26/23 12:38 Currently or been in a relationship where the following occur: no concerns reported Const General: no acute distress and alert HENMT Ears: TM's normal bilaterally and EAC's normal Throat: Yes posterior oropharynx normal and Yes tonsils normal (no TP congestion noted) Neck Neck: Yes no lymphadenopathy and Yes supple Resp Auscultation: clear to auscultation bilaterally, no rales and no wheezes Cardio Rate: regular rate Rhythm: regular rhythm Heart sounds: no murmurs GI Palpation (GI): Soft to palpation, Tenderness to palpation present (GI) (mild) in the epigastrum, no guarding, not rigid and No Rebound tenderness present Auscultation: normal bowel sounds Back/Spine/Pelvis Thoracic/Lumbar Spine: paraspinal muscle tenderness bilaterally in the lower lumbar and lumbar spinal tenderness (mild) Skin Rashes: no rashes Extrem General: Yes no clubbing, cyanosis or edema Assessment and Plan Assessment & Plan (1) Pure hypercholesterolemia: Code(s): E78.00 - Pure hypercholesterolemia, unspecified Plan: Results of her labs done last week reviewed and discussed with patient Reinforced low cholesterol diet Continue Atorvastatin 10 mg QD Will recheck her labs and fasting lipids in 4 months for follow up (2) Diabetes mellitus: Code(s): E11.9 - Type 2 diabetes mellitus without complications Qualifiers: Diabetes mellitus type: type 2 Diabetes mellitus longterm insulin use: with longterm use Diabetes mellitus complication status: with hyperglycemia Qualified Code(s): E11.65 - Type 2 diabetes mellitus with hyperglycemia; Z79.4 - retirement (current) use of insulin Plan: HgbA1c was at 6.3% on her labs done last week (was at 6.9% a few months ago) - goal is <7.0% Reinforced diabetic diet Continue Lantus 16 units Q HS, Trulicity 3 mg SQ once a week, Pioglitazone 30 mg QD and Jardiance 25 mg QD Used to see Jeanne Turner at [facility] but has not been back there since Jeanne left the practice a couple of years ago (3) Benign essential hypertension: Code(s): I10 - Essential (primary) hypertension Plan: Reinforced low sodium diet - goal is systolic BP of 120 mm or less Was on Lisinopril 2.5 mg QD but states that she was taken off this by endocrinology a while back but there is no mention of this in her reports As patient's blood pressure is currently normal, will continue to hold off starting her back on Lisinopril but may need to revisit this in the future more for renoprotection rather than for her blood pressure control (4) Hypothyroidism: Code(s): E03.9 - Hypothyroidism, unspecified Qualifiers: Hypothyroidism type: postablative Qualified Code(s): E89.0 - Postprocedural hypothyroidism Plan: TFTs remained normal on her recent labs Continue Levothyroxine 75 mcg QD Will recheck her TFTs in 4 months for follow up (5) GERD without esophagitis: Code(s): K21.9 - Gastro-esophageal reflux disease without esophagitis Plan: Dietary restrictions reinforced Continue Omeprazole 20 mg QD although patient does not feel that this is helping much as she's had recurrent epigastric pain postprandially for the past week Will start her additionally for now, per her request, on Sucralfate 1 gm QID Will also send her for an upper GI series for further evaluation Discussed that depending on how her test comes out, we may need to refer her to GI for further evaluation (6) Low back pain: Code(s): M54.50 - Low back pain, unspecified Qualifiers: Chronicity: acute Back pain laterality: bilateral Sciatica presence: with sciatica Sciatica laterality: bilateral sciatica Qualified Code(s): M54.42 - Lumbago with sciatica, left side; M54.41 - Lumbago with sciatica, right side Plan: Reinforced activity and weight-lifting restrictions Lumbar spine x-rays done in June 2022 revealed (+) multilevel lumbar spondylosis from L4 through S1 In light of her comorbidities, including her GERD, should continue to avoid NSAIDs and take OTC Tylenol 500 mg Q 6 hours PRN for pain Continue Tizanidine 4 mg TID PRN - states that this helps a lot and needs this refilled (Rx sent) Discussed again option of referral to physical therapy; can also refer to pain management if she wants - states that she would like to hold off on these for now as her low back pain has subsided / calmed down a lot lately and that she will call for referral if needed (7) Vitamin D deficiency: Code(s): E55.9 - Vitamin D deficiency, unspecified Plan: Continue Vitamin D3 1000 units QD (8) Depression, major, recurrent: Code(s): F33.9 - Major depressive disorder, recurrent, unspecified Qualifiers: Active/Remission status: currently active Major depression episode severity: unspecified Qualified Code(s): F33.9 - Major depressive disorder, recurrent, unspecified Plan: Continue Citalopram 20 mg QD and Mirtazapine 7.5 mg Q HS Follow up with psychiatry as scheduled (9) Overweight (BMI 25.0-29.9): Code(s): E66.3 - Overweight Plan: Reinforced diet/exercise as tolerated/lose weight Plan Follow up in 4 months Orders: Orders Complete Blood Count Auto Diff 4 Months I10 - Essential (primary) hypertension Comprehensive [place]. Panel Fast 4 Months E78.00 - Pure hypercholesterolemia, unspecified Microalbumin, Random (w Creat) 4 Months E11.9 - Type 2 diabetes mellitus without complications UA CC w/rflx Micro + Cult 4 Months R30.0 - Dysuria Vitamin D 25-OH Total 4 Months E55.9 - Vitamin D deficiency, unspecified Vitamin B12 and Folate 4 Months E53.8 - Deficiency of other specified B group vitamins [place] upper GI series Today R10.13 - Epigastric pain Lipid Panel 4 Months E78.00 - Pure hypercholesterolemia, unspecified Hemoglobin A1c 4 Months E11.9 - Type 2 diabetes mellitus without complications Free T4 (Free Thyroxine) 4 Months E03.9 - Hypothyroidism, unspecified Thyroid Stimulating Hormone 4 Months E03.9 - Hypothyroidism, unspecified Medications: New sucralfate 1 g PO QIDACHS 30 days 120 tabs 2RF Refilled tizanidine 4 mg PO Q8H 10 days PRN 30 tabs 3RF muscle spasms/low back pain FreeStyle Lancets (lancets) USE DIRECTED 3X/DAY 100 ea 2RF NS E11.9 - Type 2 diabetes mellitus without complications, Z79.4 - retirement (current) use of insulin blood sugar diagnostic (FreeStyle Lite Strips) As directed three times a day 100 ea 11RF E11.65 - Type 2 diabetes mellitus with hyperglycemia, Z79.4 - retirement (current) use of insulin Coding Level of Care Code Est Pt Level 4 (99059) Diagnoses Pure hypercholesterolemia E78.00 Type 2 diabetes mellitus with hyperglycemia, with long-term current use of insulin E11.65; Z79.4 Diabetes mellitus type: type 2 Diabetes mellitus longterm insulin use: with intermission coordinator use Diabetes mellitus complication status: with hyperglycemia Benign essential hypertension I10 Postablative hypothyroidism E89.0 Hypothyroidism type: postablative GERD without esophagitis K21.9 Acute bilateral low back pain with bilateral sciatica M54.42; M54.41 Chronicity: acute Back pain laterality: bilateral Sciatica presence: with sciatica Sciatica laterality: bilateral sciatica Vitamin D deficiency E55.9 Episode of recurrent major depressive disorder, unspecified depression episode severity F33.9 Active/Remission status: currently active Major depression episode severity: unspecified Overweight (BMI 25.0-29.9) E66.3
== END 2023-05-26 13:06 | disposition home or self-care (01) ==
PROVIDERS: PCP Internal Medicine; Visit Provider Internal Medicine
DX: I10 Essential (primary) hypertension (principal); K21.9 Gastro-esophageal reflux disease without esophagitis; E11.65 Type 2 diabetes mellitus with hyperglycemia; E55.9 Vitamin D deficiency, unspecified; Z79.4 Long term (current) use of insulin; F33.9 Major depressive disorder, recurrent, unspecified; E78.00 Pure hypercholesterolemia, unspecified; E89.0 Postprocedural hypothyroidism; M54.42 Lumbago with sciatica, left side; M54.41 Lumbago with sciatica, right side; E66.3 Overweight
CPT/HCPCS: 99214

== ENCOUNTER 2023-06-30 09:58 | Outpatient (AMB) | payer OTHER, SELFPAY ==
--- NOTE | 2023-06-30 10:00 | MHC.OFFVIS ---
Intake Vital Signs 06/30/23 10:04 Height 5 ft 1 in Weight 146 lb BMI 27.6 BP 122/72 Intake Visit Reasons: annual Intake Note: no concerns. The patient agreed to use of a medical scientist during this encounter. Scribed for DAKOTA Brennan by Rhonda Morrissey medical scientist, on 06/30/2023 at 10:28 am EST. Hand Baseball Sewer Required: Yes Hand Baseball Sewer Language: Installers Mechanical Name: Catrachita KIRAN Information Interpreted: non-clinical & clinical Bag Press Operator: Bag Press Operator Present (Catrachita KIRAN) Accompanied by: Self / Same As Patient Allergies Penicillins [PENICILLINS] Allergy (Unknown, Verified 06/30/23 10:05) RASH Post menopausal: Yes HPI HPI Comments History of Present Illness Details She is a postmenopausal woman presenting for annual exam. Doing well with no color television console monitor concerns. Patient admits she tries to eat a healthy diet including Calcium and Vitamin D. She stays active with exercise. Currently not sexually active. Denies vaginal itching and irritation. Denies family hx of breast, colon and ovarian cancer. Last pap smear 2015. Last mammogram 04/21/23. UTD on colonoscopy. [facility] Medical History Benign essential hypertension Obesity (BMI 30-39.9) DM2 (diabetes mellitus, type 2) Diabetes mellitus Diabetic nephropathy associated with type 2 diabetes mellitus skilled nursing (current) use of insulin GERD without esophagitis Pure hypercholesterolemia Diabetes type 2, controlled Hypothyroidism Depression, major, recurrent Surgical History History of removal of cyst History of colonoscopy History of total hysterectomy Family History Father No problems noted. Mother HTN (hypertension) Brother No problems noted. Sister No problems noted. Sister No problems noted. Daughter No problems noted. Son No problems noted. Son No problems noted. Son No problems noted. Social History Household Members: Spouse Housing: Apartment Alcohol intake: never Patient Tobacco Use Status: Never used Tobacco e-Cigarette/Vaping Use: Never Used Second Hand Smoke Exposure: Yes service: No Current occupational status: disabled Sexual orientation: Straight/Heterosexual Gender identity: Female Cognitive needs: No Hearing needs: No Vision needs: No Female Reproductive History Menstrual Age of Menarche: 13 Menopause type: surgical Total pregnancies: 6 Full term: 5 Number of Living Children: 5 Ab spontaneous: 1 Date of Mammogram: 04/21/23 Physical Exam Vital Signs: Last Vital Signs BP 122/72 06/30/23 10:04 BMI result Body Mass Index 27.6 Const General: cooperative, healthy appearing, no acute distress, well developed and alert Orientation/consciousness: patient oriented x3 HEENT Head: Yes normal to inspection Eyes General: appearance normal, both eyes and all related structures Neck Neck: Yes normal visual inspection Thyroid: Thyroid normal Chest Chest palpation & inspection: normal inspection of the chest Breast/axilla inspection: normal inspection of the breasts (no puckering, dimpling, peau de orange, retraction, discharge, masses) Breast/axilla palpation: normal palpation of the breasts Resp Effort & Inspection: normal respiratory effort GI Inspection: Yes normal to inspection Palpation (GI): Soft to palpation (to palpation) Rectal Exam - Female: deferred General: Yes bladder normal to inspection External Female Exam: normal external appearance and normal appearance of the urethra Speculum Exam - Vagina: normal appearance of the vagina, normal palpation and normal vaginal discharge Speculum Exam - Cervix: Cervix absent and Other cervical findings present ( vag cuff; no lesions, no nodules) Bimanual exam- vagina & uterus: normal palpation and uterus absent Bimanual Exam- Adnexa, other: normal adnexae and no masses Skin General skin exam: no rashes or lesions noted Neuro General: patient oriented x3 Cognition (Neuro): normal cognition Extrem General: Yes normal to inspection Psych Attitude: cooperative Thought process: Normal thought process present Assessment & Plan Assessment & Plan (1) Well woman exam with routine gynecological exam: Code(s): Z01.419 - Encounter for gynecological examination (general) (routine) without abnormal findings Plan: Discussed: Current recommendations for pap smears per ASCCP guidelines. Breast awareness and periodic self breast exams. Encouraged yearly mammograms. Maintaining a healthy lifestyle including a well balanced diet including Calcium and Vitamin D and routine exercise. Contact office with any PMB. All of her questions and concerns were addressed to the best of my ability. RTO in 1 year for AG. Coding Level of Care Code New Pt Prev Care 40-64y(79078) Diagnoses Well woman exam with routine gynecological exam Z01.419
[2023-06-30 10:04] VITALS: BP 122/72; BMI 27.6
== END 2023-06-30 10:36 | disposition home or self-care (01) ==
PROVIDERS: PCP Internal Medicine; Visit Provider Advanced Practice Midwife
DX: Z01.419 Encounter for gynecological examination (general) (routine) without abnormal findings (principal)
CPT/HCPCS: 99386; 99396

== ENCOUNTER → 2023-06-30 09:58 | Outpatient (BNVA) | payer OTHER, SELFPAY | PROVIDERS: PCP Internal Medicine; Visit Provider Advanced Practice Midwife | DX: Z01.419 Encounter for gynecological examination (general) (routine) without abnormal findings (principal) | CPT/HCPCS: 99386 ==

== ENCOUNTER 2023-08-08 10:04 | Outpatient (REF) | payer OTHER, SELFPAY ==
--- NOTE | ~2023-08-08 | FL_ITS ---
EXAMINATION: XR FLUOROSCOPY UPPER GI WITH AIR CLINICAL INFORMATION: Epigastric pain. Reflux COMPARISON: None TECHNIQUE: Fluoroscopic air contrast upper GI examination was performed utilizing standard techniques with thin and thick barium and effervescent granules. Numerous spot images were obtained. FINDINGS: Surgical clips are present in the right upper quadrant, consistent with prior history of cholecystectomy. Dual and single contrast images of the esophagus demonstrate normal caliber, contour, and mucosal pattern. A very small Zenker's diverticulum is seen in the upper esophagus. No stricture, mass, or ulcerations are identified. Primary esophageal peristalsis was normal. Mild nonpropulsive tertiary tertiary contractions are seen in the distal esophagus. A small hiatal hernia is present. Gastroesophageal reflux is seen up to the thoracic inlet Dual contrast and single contrast images of the stomach demonstrated a normal contour. There is a focal area of pooling of barium in the greater curvature the stomach, consistent with ulceration. No masses or other abnormality are seen. Contrast freely passed into the gastric antrum and duodenal bulb without delay. Single and air-contrast images of the duodenal bulb demonstrate no abnormality. The duodenal sweep has a normal appearance, course, and mucosal fold appearance. The imaged proximal jejunum has a normal fold pattern and caliber. FLUOROSCOPY TIME: 3 minutes 26 seconds Number of Spot Images: 12 Number of Cine: 9 DOSE AREA PRODUCT: 1851 uGy-m2 (microgray-meter squared) FL/FL upper GI w air IMPRESSION: 1. Very small Zenker's diverticulum in the upper esophagus 2. Small type I hiatal hernia 3. Significant gastroesophageal reflux 4. Focal area of contrast pooling in the greater curvature stomach highly suggestive of ulcer. Recommend gastroenterology consultation for consideration of an endoscopy. This procedure was performed by Zenon Tran PA-C, and supervised by Dr. Feliciano
== END 2023-08-08 10:05 | disposition home or self-care (01) ==
LOC: HO.XRAY 10:04
PROVIDERS: PCP Internal Medicine; Visit Provider Internal Medicine
DX: R10.13 Epigastric pain (principal)
CPT/HCPCS: 74246

== ENCOUNTER → 2023-08-08 10:07 | Outpatient (BNV) | payer OTHER, SELFPAY | PROVIDERS: PCP Internal Medicine; Visit Provider Radiology Diagnostic Radiology | DX: K21.9 Gastro-esophageal reflux disease without esophagitis (principal) | CPT/HCPCS: 74246 ==

== ENCOUNTER 2023-11-10 07:49 | Outpatient (REF) | payer OTHER, SELFPAY ==
[2023-11-10 08:14] LABS: MANUAL DIFF FLAG NO
[2023-11-10 08:19] LABS: Basophils Percent Auto 0.8 % (0-2); Eosinophils Absolute Auto 0.3 X10*3/uL (0.0-0.4); Eosinophils Percent Auto 5.2 % (0-4); Hematocrit 37.6 % (37.0-47.0); Hemoglobin 12.6 g/dl (12.0-16.0); Imm Gran Abs Auto 0.02 X10*3/uL (0.00-0.03); Imm Gran Pct Auto 0.4 % (0.0-0.4); Lymphocytes Absolute Auto 1.3 X10*3/uL (1.2-4.9); Lymphocytes Percent Auto 25.2 % (20-40); Mean Corpuscular HGB Conc 33.5 g/dl (31.0-35.0); Mean Corpuscular Hemoglobin 26.3 pg (27.0-33.0); Mean Corpuscular Volume 78.5 fL (80.0-98.0); Monocytes Absolute Auto 0.3 X10*3/uL (0.1-1.2); Monocytes Percent Auto 5.2 % (2-11); Neutrophils Absolute Auto 3.3 x10*3/uL (2.0-8.3); Neutrophils Percent Auto 63.2 % (45-73); Platelet Count 230 X10*3/uL (160-400); Red Blood Count 4.79 X10*6/uL (4.20-5.50); Red Cell Distribution Width 14.2 % (11.0-16.0); White Blood Count 5.2 X10*3/uL (4.8-10.8)
[2023-11-10 08:51] LABS: Estimated Average Glucose 131 mg/dL; Hemoglobin A1c % 6.2 % (<6.0)
[2023-11-10 09:01] LABS: Appearance Urine Clear; Color Urine Yellow; Glucose Urine UA Negative (Negative); Leukocyte Esterase Urine Negative (Negative); Nitrite Urine Negative (Negative); PH 6.5 (5.0-9.0); Specific Gravity - Urine 1.015 (1.005-1.025); Urine Blood Negative (Negative); Urine Ketones Negative (Negative); Urine Protein Negative (Neg-Trace)
[2023-11-10 09:04] LABS: Alanine Aminotransferase 16 U/L (0-31); Alkaline Phosphatase 98 U/L (39-117); Anion Gap 12 (12-20); Aspartate Amino Transferase 18 U/L (5-31); Bilirubin Total 0.4 mg/dL (0.0-1.0); Blood Urea Nitrogen 18 mg/dL (9-16); Carbon Dioxide 25 mmol/L (22-29); Chloride 110 mmol/L (96-108); Cholesterol 110 mg/dL (<200); Estimated Glomerular Filt Rate > 60; Glucose Fasting 123 mg/dL (60-99); HDL Cholesterol 36 mg/dL (>40); LDL Cholesterol Calculated 65 mg/dL (<100); Sodium 143 mmol/L (135-145); Total Protein 7.2 g/dL (6.5-8.0); Triglycerides 46 mg/dL (<150)
[2023-11-10 09:08] LABS: Free T4 (Free Thyroxine) 0.87 ng/dL (0.71-1.85); Thyroid Stimulating Hormone 0.82 uIU/mL (0.32-4.0); Vitamin D 25-OH Total 33.9 ng/mL (>30)
[2023-11-10 09:17] LABS: Creatinine Urine 80.18 mg/dL; Microalbum/Creatinine Ratio Ur 8.7 ug/mg cr (<30)
[2023-11-10 09:30] LABS: Folate 12.3 ng/mL (> or = 4.0); Vitamin B12 417 pg/mL (200-900)
== END 2023-11-10 07:50 | disposition home or self-care (01) ==
LOC: HO.LAB 07:49
PROVIDERS: PCP Internal Medicine; Visit Provider Internal Medicine
DX: I10 Essential (primary) hypertension (principal); E11.9 Type 2 diabetes mellitus without complications; E03.9 Hypothyroidism, unspecified; E78.00 Pure hypercholesterolemia, unspecified; E55.9 Vitamin D deficiency, unspecified; E53.8 Deficiency of other specified B group vitamins; R30.0 Dysuria
CPT/HCPCS: 36415; 80053; 80061; 81003; 82043; 82306; 82570; 82607; 82746; 83036; 84439; 84443; 85025

== ENCOUNTER 2023-11-24 12:17 | Outpatient (AMB) | payer OTHER, SELFPAY ==
--- NOTE | 2023-11-24 12:32 | A.OFFPC_ITS ---
Vital Signs 11/24/23 12:35 Height 5 ft 1 in Weight 145 lb BMI 27.4 BP 90/56 L Blood Pressure Location Lt brachial Position Sitting Pulse 70 Pulse Source Pulse Oximeter Pulse Oximetry (%) 99 Oxygen Delivery Method Room Air Intake Visit Reasons: 4mth f/u Intake Note: Patient is here to follow up on DM, Hypercholesterolemia, Hypothyroidism, HTN. 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 Language: [employer] Medic Name: Lizandro ([id number]) Information Interpreted: non-clinical & clinical Cook Seafood: Not Required per policy Accompanied by: Self / Same As Patient Allergies Penicillins [PENICILLINS] Allergy (Unknown, Verified 11/24/23 13:03) RASH Medication List - Last Reconciled 11/24/23 by Jeremias Cardenas MD alcohol swabs pad topical atorvastatin 10 mg PO DAILY 30 days blood sugar diagnostic (FreeStyle Lite Strips) As directed three times a day blood sugar diagnostic 3 times a day blood sugar diagnostic (FreeStyle Lite Strips) As directed three times a day cholecalciferol (vitamin D3) 25 mcg PO DAILY 90 days citalopram 20 mg PO DAILY dulaglutide (Trulicity) 3 mg (0.5 mL) subcut QWEEK 28 days empagliflozin (Jardiance) 25 mg PO QAM FreeStyle Lancets (lancets) USE DIRECTED 3X/DAY NS FreeStyle Lancets (lancets) USE DIRECTED 3X/DAY NS hydroxyzine HCl 25 mg PO DAILY insulin syringe-needle U-100 As directed Lantus Solostar U-100 Insulin (insulin glargine) 16 units (0.16 mL) subcut DAILY 90 days NS levothyroxine 75 mcg PO DAILY 90 days mirtazapine 7.5 mg PO BEDTIME omeprazole 20 mg PO DAILY 90 days pen needle, diabetic daily pioglitazone 30 mg PO DAILY 30 days sucralfate 1 g PO QIDACHS 30 days tizanidine 4 mg PO Q8H PRN 10 days trazodone 100 mg PO BEDTIME PRN Tobacco use date assessed: 11/24/23 Dental Screening Dental Screen Date: 11/24/23 Did you have a dental visit in the last 12 months?: Yes Did you have a dental problem in the last 6 months where you did not have access to dental care?: No Was dental information given to patient?: Patient has dentist HPI 4mth f/u HPI Details Patient comes in today for her follow up visit States that she feels okay and that her previous epigastric pain has improved significantly and now hardly bothers her She denies any headaches or dizziness Denies any chest pains, no SOB No nausea/vomiting and no change in bowel habits noted States that her recurrent low back pain has been well-controlled on her current Rx Needs her Atorvastatin and Carafate Rx refilled Had her follow up labs done a couple of weeks ago - to discuss her results [facility] Medical History (Updated 11/24/23 @ 13:06 by Jeremias Cardenas MD) Benign essential hypertension Obesity (BMI 30-39.9) Diabetic nephropathy associated with type 2 diabetes mellitus USP (current) use of insulin GERD without esophagitis Pure hypercholesterolemia Diabetes type 2, controlled Hypothyroidism Depression, major, recurrent Surgical History History of removal of cyst History of colonoscopy History of total hysterectomy Family History Father No problems noted. Mother HTN (hypertension) Brother No problems noted. Sister No problems noted. Sister No problems noted. Daughter No problems noted. Son No problems noted. Son No problems noted. Son No problems noted. Social History Household Members: Spouse Housing: Apartment Alcohol intake: never Patient Tobacco Use Status: Never used Tobacco e-Cigarette/Vaping Use: Never Used Second Hand Smoke Exposure: Yes service: No Current occupational status: disabled Sexual orientation: Straight/Heterosexual Gender identity: Female Cognitive needs: No Hearing needs: No Vision needs: No Female Reproductive History Menstrual Age of Menarche: 13 Questionnaire PHQ-9 Over the last 2 weeks, how often have you been bothered by any of the following problems? 1. Little interest or pleasure in doing things: not at all 2. Feeling down, depressed, or hopeless: not at all 3. Trouble falling or staying asleep, or sleeping too much: not at all 4. Feeling tired or having little energy: not at all 5. Poor appetite or overeating: not at all 6. Feeling bad about yourself - or that you are a failure or have let yourself or your family down: not at all 7. Trouble concentrating on things, such as reading the newspaper or watching television: not at all 8. Moving or speaking so slowly that other people could have noticed. Or the opposite - being so fidgety or restless that you have been moving around a lot more than usual: not at all 9. Thoughts that you would be better off or of hurting yourself in some way: not at all Total score: 0 Depression Screening Interpretation: Negative Depression Screening Done: Yes 86010 - PHQ-9 Billing: Yes Source: Developed by Drs. Slava Velez, Tere Moreno, Neel Chris and colleagues, with an educational arlette from [employer]. Thrive Questionnaire Date Thrive assessed: 11/24/23 I am a: Patient What is your living situation today?: I have a steady place to live Within the past 12 months, did the food you bought not last and you didn't have the money to get more?: Never true Within the past 12 months, did you worry whether your food would run out before you got money to buy more?: Never true Do you have trouble paying for medicines?: No Do you have trouble getting transportation to medical appointments?: No Do you have trouble paying your heating and electricity bill?: No Do you have trouble taking care of your child, family member or friend?: No Do you have trouble with day-to-day activities such as bathing, preparing meals, shopping, managing finances, etc.?: No Are you currently unemployed and looking for a job?: No Are you interested in more education?: No Currently or been in a relationship where the following occur: no concerns reported THRIVE Score: 0 AUDIT C Alcohol Use Questionnaire (AUDIT-C) 1. How often do you have a drink containing alcohol?: Never Total Score: 0 Score Reviewed/Action Taken: Yes JONN-7 AMB Questionnaire JONN-7 Date JONN - 7 assessed: 11/24/23 Feeling nervous, anxious, or on edge: 0 = Not at all Not being able to stop or control worryin = Not at all Worrying too much about different things: 0 = Not at all Trouble relaxin = Not at all Being so restless that it is hard to sit still: 0 = Not at all Becoming easily annoyed or irritable: 0 = Not at all Feeling afraid as if something awful might happen: 0 = Not at all Total JONN-7 score (0-4 normal; 5-9 mild; 10-14 moderate; 15-21 severe): 0 Source: Developed by Drs. Slava Velez, Tere Moreno, Neel Chris and colleagues, with an educational arlette from [employer]. Review of Systems Const Denies chills, Denies fatigue, Denies fever(s) and Denies headache(s) ENT Denies dysphagia, Denies dizziness, Denies otalgia, Denies headache(s), Denies neck pain, Denies odynophagia and Denies sore throat Card Denies chest pain, Denies palpitations and Denies dyspnea Resp Denies cough and Denies dyspnea GI Denies abdominal pain, Denies constipation, Denies dysphagia, Denies heartburn, Denies diarrhea, Denies nausea, Denies odynophagia and Denies vomiting Denies difficulty voiding, Denies nocturia, Denies dysuria and Denies urinary urgency Musc Denies neck pain Skin/Breast Denies rash Neuro Denies dizziness and Denies headache(s) Endo Denies fatigue and Denies palpitations Physical exam (Primary Care) Vital Signs: Last Vital Signs Pulse 70 11/24/23 12:35 BP 90/56 L 11/24/23 12:35 Pulse Ox 99 11/24/23 12:35 Oxygen Delivery Method Room Air 11/24/23 12:35 BMI result Body Mass Index 27.4 Tobacco/Smoking Status: Tobacco use Status Tobacco use date assessed 11/24/23 11/24/23 12:43 Patient Tobacco Use Status Never used Tobacco 11/24/23 12:43 e-Cigarette/Vaping Use Never Used 11/24/23 12:43 PHQ-9: PHQ-9 Score PHQ-9: Total score 0 11/24/23 12:43 Depression Screening Interpretation: Negative Thrive Assessment: Date of Thrive Assessment Date Thrive assessed 11/24/23 11/24/23 12:43 Currently or been in a relationship where the following occur: no concerns reported Const General: no acute distress and alert HENMT Ears: TM's normal bilaterally and EAC's normal Throat: Yes posterior oropharynx normal and Yes tonsils normal (no TP congestion noted) Neck Neck: Yes no lymphadenopathy and Yes supple Thyroid: Thyroid normal Resp Auscultation: clear to auscultation bilaterally, no rales and no wheezes Cardio Rate: regular rate Rhythm: regular rhythm Heart sounds: no murmurs GI Palpation (GI): Soft to palpation and nontender Auscultation: normal bowel sounds General: Yes no CVA tenderness Back/Spine/Pelvis Back: no CVA tenderness Thoracic/Lumbar Spine: paraspinal muscle tenderness bilaterally in the lower lumbar and lumbar spinal tenderness (mild) Skin Rashes: no rashes Extrem General: Yes no clubbing, cyanosis or edema Results Reviewed Results Reviewed: Laboratory Tests 11/10/23 11/10/23 11/10/23 08:07 08:07 08:09 WBC 5.2 Hgb 12.6 Hct 37.6 Plt Count 230 Sodium 143 Potassium 4.0 Creatinine 0.71 Estimated GFR > 60 Fasting Glucose 123 H Hemoglobin A1c % 6.2 H Calcium 9.0 AST 18 ALT 16 Triglycerides 46 Cholesterol 110 LDL Cholesterol, Calc 65 HDL Cholesterol 36 L Vitamin B12 417 25-OH Vitamin D Total 33.9 TSH Free T4 Ur Specific [place] 1.015 Urine Protein Negative Urine Glucose (UA) Negative Urine Blood Negative Urine Nitrite Negative Ur Leukocyte Esterase Negative Microalb/Creat Ratio 8.7 11/10/23 11/10/23 08:09 08:09 WBC Hgb Hct Plt Count Sodium Potassium Creatinine Estimated GFR Fasting Glucose Hemoglobin A1c % Calcium AST ALT Triglycerides Cholesterol LDL Cholesterol, Calc HDL Cholesterol Vitamin B12 25-OH Vitamin D Total TSH 0.82 Free T4 0.87 Ur Specific [place] Urine Protein Urine Glucose (UA) Urine Blood Urine Nitrite Ur Leukocyte Esterase Microalb/Creat Ratio Assessment and Plan Assessment & Plan (1) Pure hypercholesterolemia: Code(s): E78.00 - Pure hypercholesterolemia, unspecified Plan: Results of her labs done a few weeks ago reviewed and discussed with patient Reinforced low cholesterol diet Continue Atorvastatin 10 mg QD Will recheck her labs and fasting lipids in 4 months for follow up (2) Diabetes mellitus: Code(s): E11.9 - Type 2 diabetes mellitus without complications Qualifiers: Diabetes mellitus type: type 2 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: with equipment operator intermodal yard use Diabetes mellitus complication status: with hyperglycemia Qualified Code(s): E11.65 - Type 2 diabetes mellitus with hyperglycemia; Z79.4 - equipment operator intermodal yard (current) use of insulin Plan: HgbA1c was at 6.2% on her labs done a couple of weeks ago (was at 6.3% a few months ago) - goal is <7.0% Reinforced diabetic diet Continue Lantus 16 units Q HS, Trulicity 3 mg SQ once a week, Pioglitazone 30 mg QD and Jardiance 25 mg QD Used to see Jeanne Turner at [facility] but has not been back there since Jeanne left the practice a couple of years ago (3) Benign essential hypertension: Code(s): I10 - Essential (primary) hypertension Plan: Reinforced low sodium diet - goal is systolic BP of 120 mm or less Was on Lisinopril 2.5 mg QD but states that she was taken off this by endocrinology a while back Her blood pressure currently remains normal so will continue to hold off on starting her back on Lisinopril Discussed that we may need to revisit this in the future more for renoprotection rather than for her blood pressure control (4) Hypothyroidism: Code(s): E03.9 - Hypothyroidism, unspecified Qualifiers: Hypothyroidism type: postablative Qualified Code(s): E89.0 - Postprocedural hypothyroidism Plan: Her TFTs remained normal on her recent labs Continue Levothyroxine 75 mcg QD Will recheck her TFTs in 4 months for follow up (5) GERD without esophagitis: Code(s): K21.9 - Gastro-esophageal reflux disease without esophagitis Plan: Dietary restrictions reinforced Continue Omeprazole 20 mg QD and Sucralfate 1 gm QID (Rx refilled) Discussed that her upper GI series done back in July 2023 revealed (+) significant reflux BUT there is also a focal area of contrast pooling in the greater curvature of the stomach suggestive of an ulcer Will refer her to GI for further evaluation and management of this - may need EGD but will leave decision on this up to GI after she is seen (6) Low back pain: Code(s): M54.50 - Low back pain, unspecified Qualifiers: Chronicity: acute Back pain laterality: bilateral Sciatica presence: with sciatica Sciatica laterality: bilateral sciatica Qualified Code(s): M54.42 - Lumbago with sciatica, left side; M54.41 - Lumbago with sciatica, right side Plan: Reinforced activity and weight-lifting restrictions Lumbar spine x-rays done in June 2022 revealed (+) multilevel lumbar spondylosis from L4 through S1 In light of her comorbidities, including her GERD, she should continue to avoid all NSAIDs and continue on OTC Tylenol 500 mg Q 6 hours PRN for pain Continue Tizanidine 4 mg TID PRN Discussed again option of referral to physical therapy; can also refer to pain management if she wants - states that she would like to hold off on these for now and she will call for referral if needed (7) Vitamin D deficiency: Code(s): E55.9 - Vitamin D deficiency, unspecified Plan: Continue Vitamin D3 1000 units QD (8) Depression, major, recurrent: Code(s): F33.9 - Major depressive disorder, recurrent, unspecified Qualifiers: Active/Remission status: currently active Major depression episode severity: unspecified Qualified Code(s): F33.9 - Major depressive disorder, recurrent, unspecified Plan: Continue Citalopram 20 mg QD and Mirtazapine 7.5 mg Q HS Follow up with psychiatry as scheduled (9) Overweight (BMI 25.0-29.9): Code(s): E66.3 - Overweight Plan: Reinforced diet/exercise as tolerated/lose weight Plan Follow up in 4 months Orders: Orders Lipid Panel 4 Months E78.00 - Pure hypercholesterolemia, unspecified Complete Blood Count Auto Diff 4 Months D64.9 - Anemia, unspecified Free T4 (Free Thyroxine) 4 Months E03.9 - Hypothyroidism, unspecified Microalbumin, Random (w Creat) 4 Months E11.9 - Type 2 diabetes mellitus without complications Thyroid Stimulating Hormone 4 Months E03.9 - Hypothyroidism, unspecified Comprehensive Greene. Panel Fast 4 Months E78.00 - Pure hypercholesterolemia, unspecified Hemoglobin A1c 4 Months E11.9 - Type 2 diabetes mellitus without complications Vitamin D 25-OH Total 4 Months E55.9 - Vitamin D deficiency, unspecified UA CC w/rflx Micro + Cult 4 Months R30.0 - Dysuria Referrals Gastroenterology Referral K25.9 - Gastric ulcer, unspecified as acute or chronic, without hemorrhage or perforation Medications: Refilled cholecalciferol (vitamin D3) 25 mcg PO DAILY 90 caps 3RF 90 days E55.9 - Vitamin D deficiency, unspecified sucralfate 1 g PO QIDACHS 120 tabs 2RF 30 days atorvastatin 10 mg PO DAILY 30 tabs 5RF 30 days E11.9 - Type 2 diabetes mellitus without complications Coding Level of Care Code Est Pt Level 4 (40287) Diagnoses Pure hypercholesterolemia E78.00 Type 2 diabetes mellitus with hyperglycemia, with long-term current use of insulin E11.65; Z79.4 Diabetes mellitus type: type 2 Diabetes mellitus retirement insulin use: with equipment operator intermodal yard use Diabetes mellitus complication status: with hyperglycemia Benign essential hypertension I10 Postablative hypothyroidism E89.0 Hypothyroidism type: postablative GERD without esophagitis K21.9 Acute bilateral low back pain with bilateral sciatica M54.42; M54.41 Chronicity: acute Back pain laterality: bilateral Sciatica presence: with sciatica Sciatica laterality: bilateral sciatica Vitamin D deficiency E55.9 Episode of recurrent major depressive disorder, unspecified depression episode severity F33.9 Active/Remission status: currently active Major depression episode severity: unspecified Overweight (BMI 25.0-29.9) E66.3
[2023-11-24 12:35] VITALS: BP 90/56; PULSE 70; O2SAT 99; BMI 27.4
== END 2023-11-24 13:01 | disposition home or self-care (01) ==
PROVIDERS: PCP Internal Medicine; Visit Provider Internal Medicine
DX: E78.00 Pure hypercholesterolemia, unspecified (principal); E11.65 Type 2 diabetes mellitus with hyperglycemia; Z79.4 Long term (current) use of insulin; F33.9 Major depressive disorder, recurrent, unspecified; I10 Essential (primary) hypertension; E89.0 Postprocedural hypothyroidism; K21.9 Gastro-esophageal reflux disease without esophagitis; M54.42 Lumbago with sciatica, left side; M54.41 Lumbago with sciatica, right side; E55.9 Vitamin D deficiency, unspecified; E66.3 Overweight
CPT/HCPCS: 99214

== ENCOUNTER 2024-02-20 10:56 | Outpatient (AMB) | payer OTHER, SELFPAY ==
--- NOTE | 2024-02-20 11:11 | A.OFFVIS_ITS ---
Vital Signs 02/20/24 11:29 Height 5 ft 1 in Weight 149 lb 14.629 oz BMI 28.3 BP 126/78 Blood Pressure Location Lt brachial Position Sitting Pulse 72 Pulse Source Pulse Oximeter Pulse Oximetry (%) 98 Oxygen Delivery Method Room Air Intake Visit Reasons: gastric ulcer Intake Note: Lashanda presents in office today for a colo scrn. CC; No prior hx of colo scrn or s/p. Pt reports that her PCP recommended the colo s/p as a routine prophylactic. No sx or significant concerns otherwise. Supervisor Advice Required: Yes Supervisor Advice Name: Tachira Allergies Penicillins [PENICILLINS] Allergy (Unknown, Verified 02/20/24 11:28) RASH HPI HPI gastric ulcer: Details: 59-year-old female with past medical history of hypertension, diabetes, hypothyroidism, GERD, hypercholesteremia, insomnia, depression is here today for initial consultation. Patient had upper GI series back in July and was diagnosed with reflux and possible gastric ulcer. Patient was given sucralfate 4 times a day and omeprazole. Patient continues to have epigastric pain and dyspepsia. Patient denies any dysphagia or odynophagia. Last colonoscopy several years ago back in [place]. Patient has not had endoscopy done in the past. Currently patient is on Trulicity. Patient admits to constipation. Bowel movements are soft, however patient does not feel like she empties her bowels well. Patient reports abdominal bloating, feeling bloated most of the time. Patient denies any nausea or vomiting. Patient denies melena, hematochezia, unintentional weight loss or ribbon like stools. [facility] Medical History Benign essential hypertension Obesity (BMI 30-39.9) Diabetic nephropathy associated with type 2 diabetes mellitus retirement (current) use of insulin GERD without esophagitis Pure hypercholesterolemia Diabetes type 2, controlled Hypothyroidism Depression, major, recurrent Surgical History History of removal of cyst History of colonoscopy History of total hysterectomy Family History Father No problems noted. Mother HTN (hypertension) Brother No problems noted. Sister No problems noted. Sister No problems noted. Daughter No problems noted. Son No problems noted. Son No problems noted. Son No problems noted. Social History Household Members: Spouse Housing: Apartment Alcohol intake: never Patient Tobacco Use Status: Never used Tobacco e-Cigarette/Vaping Use: Never Used Second Hand Smoke Exposure: Yes service: No Current occupational status: disabled Sexual orientation: Straight/Heterosexual Gender identity: Female Cognitive needs: No Hearing needs: No Vision needs: No Female Reproductive History Menstrual Age of Menarche: 13 Review of Systems Const Denies weight gain and Denies weight loss ENT Reports no additional complaints, Denies dysphagia and Denies odynophagia Card Reports no additional complaints Resp Reports no additional complaints GI Reports abdominal pain (Epigastric ), Denies belching, Denies melena, Reports bloating, Denies change in bowel habits, Reports constipation, Denies dysphagia, Denies excessive flatus, Denies dyspepsia, Reports heartburn, Denies diarrhea, Denies loose stools, Denies nausea, Denies odynophagia and Denies vomiting Reports no additional complaints Musc Reports no additional complaints Neuro Reports no additional complaints Psych Reports no additional complaints Endo Reports no additional complaints Physical Exam Vital Signs: Last Vital Signs Pulse 72 02/20/24 11:29 BP 126/78 02/20/24 11:29 Pulse Ox 98 02/20/24 11:29 Oxygen Delivery Method Room Air 02/20/24 11:29 BMI result Body Mass Index 28.3 Const General: healthy appearing, no acute distress and well developed Nutritional Appearance: well nourished Orientation/consciousness: patient oriented x3 Resp Effort & Inspection: normal respiratory effort, able to speak in complete sentences, no tracheal deviation and symmetric chest movement Auscultation: clear to auscultation bilaterally Cardio Rate: regular rate GI Inspection: Yes normal to inspection and No distended Palpation (GI): Soft to palpation, not firm, nontender and No hepatosplenomegaly present Auscultation: normal bowel sounds General: Yes no CVA tenderness Back/Spine/Pelvis Back: no CVA tenderness Skin General skin exam: elasticity normal, turgor normal and dry skin Neuro General: patient oriented x3 Psych Appearance: grossly normal Mental Status: mental status grossly normal Results Reviewed Results Reviewed: Laboratory Tests 11/10/23 08:09 Fasting Glucose 123 H Hemoglobin A1c % 6.2 H ALT 16 Alkaline Phosphatase 98 Vitamin B12 417 25-OH Vitamin D Total 33.9 UPPER GI SERIES 08/08/2023 IMPRESSION: 1. Very small Zenker's diverticulum in the upper esophagus 2. Small type I hiatal hernia 3. Significant gastroesophageal reflux 4. Focal area of contrast pooling in the greater curvature stomach highly suggestive of ulcer. Recommend gastroenterology consultation for consideration of an endoscopy. Assessment & Plan Assessment & Plan (1) Gastric ulcer: Code(s): K25.9 - Gastric ulcer, unspecified as acute or chronic, without hemorrhage or p erforation Category: Medical Qualifiers: Gastric ulcer chronicity: unspecified ulcer chronicity Gastric ulcer complication status: without hemorrhage or perforation Qualified Code(s): K25.9 - Gastric ulcer, unspecified as acute or chronic, without hemorrhage or perforation (2) Epigastric abdominal pain: Code(s): R10.13 - Epigastric pain Category: Medical (3) GERD without esophagitis: Code(s): K21.9 - Gastro-esophageal reflux disease without esophagitis Category: Medical (4) Postprandial abdominal bloating: Code(s): R14.0 - Abdominal distension (gaseous) (5) Constipation: Code(s): K59.00 - Constipation, unspecified Qualifiers: Constipation type: slow transit constipation Qualified Code(s): K59.01 - Slow transit constipation Plan Patient will return for breathless in 2 weeks. Will stop PPI and start her on famotidine. Patient will stop famotidine 24 hours before the test and will return to the office NPO 1 hour before testing. Patient will start taking Dulcolax tablets as well as fiber supplement. If H pylori positive will treat empirically. Patient will return in 2 months to discuss prep. Message sent to surgical schedulers to book upper endoscopy and colonoscopy. Patient is on Jardiance and Trulicity. Patient is also taking lisinopril. Patient is agreeable to this plan and verbalizes understanding of instructions. She was given the opportunity to ask questions and all questions answered. Thank you for allowing me to participate in her care Orders: Orders H Pylori Breath Test 02/20/24 K21.9 - Gastro-esophageal reflux disease without esophagitis Medications: New famotidine (Pepcid) 20 mg PO BID 30 tabs 0RF K29.70 - Gastritis, unspecified, without bleeding bisacodyl (Dulcolax (bisacodyl)) 10 mg (2 x 5 mg) PO BEDTIME 60 tabs 4RF methylcellulose (laxative) (Citrucel) 500 mg PO DAILY 30 tabs 2RF K59.00 - Constipation, unspecified Discontinued sucralfate Discontinued Reason: Doctor's Order 1 g PO QIDACHS 30 days 120 tabs 2RF Coding Level of Care Code New Pt Level 4 (07435) Diagnoses Gastric ulcer without hemorrhage or perforation, unspecified chronicity K25.9 Gastric ulcer chronicity: unspecified ulcer chronicity Gastric ulcer complication status: without hemorrhage or perforation Epigastric abdominal pain R10.13 GERD without esophagitis K21.9 Postprandial abdominal bloating R14.0 Slow transit constipation K59.01 Constipation type: slow transit constipation Time Spent (min) 45 Comment 30 minutes spent with patient and additional 15 minutes spent reviewing her records
[2024-02-20 11:29] VITALS: BP 126/78; PULSE 72; O2SAT 98; BMI 28.3
== END 2024-02-20 12:34 | disposition home or self-care (01) ==
PROVIDERS: PCP Internal Medicine; Visit Provider Nurse Practitioner Family
DX: K25.9 Gastric ulcer, unspecified as acute or chronic, without hemorrhage or perforation (principal); R10.13 Epigastric pain; K21.9 Gastro-esophageal reflux disease without esophagitis; R14.0 Abdominal distension (gaseous); K59.01 Slow transit constipation
CPT/HCPCS: 99204

== ENCOUNTER → 2024-02-20 10:56 | Outpatient (BNVA) | payer OTHER, SELFPAY | PROVIDERS: PCP Internal Medicine; Visit Provider Nurse Practitioner Family | DX: K25.9 Gastric ulcer, unspecified as acute or chronic, without hemorrhage or perforation (principal); R10.13 Epigastric pain; K21.9 Gastro-esophageal reflux disease without esophagitis; R14.0 Abdominal distension (gaseous); K59.01 Slow transit constipation | CPT/HCPCS: 99202 ==

== ENCOUNTER 2024-03-08 09:37 | Outpatient (REF) | payer OTHER, SELFPAY ==
[2024-03-08 13:55] LABS: H Pylori Breath Test Negative (Negative)
== END 2024-03-08 09:38 | disposition home or self-care (01) ==
LOC: HO.LNP 09:37
PROVIDERS: PCP Internal Medicine; Visit Provider Nurse Practitioner Family
DX: K21.9 Gastro-esophageal reflux disease without esophagitis (principal); R10.13 Epigastric pain
CPT/HCPCS: 83013; 99211

== ENCOUNTER 2024-03-08 09:37 | Outpatient (AMB) | payer OTHER, SELFPAY ==
--- NOTE | 2024-03-08 09:48 | AM.OFFVISNUR ---
Intake Intake Visit Reasons: H pylori Allergies Penicillins [PENICILLINS] Allergy (Unknown, Verified 02/20/24 11:28) RASH Nursing Note Patient presents for collection of H Pylori breath test. Patient has been fasting for 1 hour (nothing to eat, drink, no chewing gum or smoking) has not taken any antacid medication for at least 2 weeks and has no allergies to artificial sweeteners.?? Coding Level of Care Code Established Pt Est Pt Level 1 (08904) Patient Type Established Medical Decision Making Straight Forward Diagnoses Epigastric abdominal pain R10.13 Assessment & Plan Assessment & Plan (1) Epigastric abdominal pain: Code(s): R10.13 - Epigastric pain Category: Medical Plan Patient presents for collection of H Pylori breath test. Patient has been fasting for 1 hour (nothing to eat, drink, no chewing gum or smoking) has not taken any antacid medication for at least 2 weeks and has no allergies to artificial sweeteners.???This test checks for an overgrowth of bacteria in your stomach. We all have bacteria but some may have more than others. It is treatable. if the test comes back negative there is nothing else to do. If the test result is positive we will treat you with 2 antibiotics and a medication to decrease the acid in your stomach (PPI) for 2 weeks. Two weeks after you have completed the treatment we will retest you to make sure the overgrowth has resolved. Patient Instructions: Process for specimen collection and reason for testing was explained to the patient. Specimen collection. Patient instructed to take a deep breath and then exhale into the blue bag, filling it up as much as possible. Patient instructed to drink a mixture of water and the artificial sweetener with a straw. A 15 minute wait period was observed. Patient instructed to take a deep breath and then exhale into the pink bag, filling it up as much as possible.??
== END 2024-03-08 10:10 | disposition home or self-care (01) ==
PROVIDERS: PCP Internal Medicine; Visit Provider Nurse Practitioner Family
DX: R10.13 Epigastric pain (principal)

== ENCOUNTER 2024-03-15 07:40 | Outpatient (REF) | payer OTHER, SELFPAY ==
[2024-03-15 07:49] LABS: MANUAL DIFF FLAG NO
[2024-03-15 08:17] LABS: Basophils Absolute Auto 0.1 X10*3/uL (0.0-0.2); Basophils Percent Auto 0.8 % (0-2); Eosinophils Absolute Auto 0.4 X10*3/uL (0.0-0.4); Eosinophils Percent Auto 6.3 % (0-4); Hematocrit 38.7 % (37.0-47.0); Hemoglobin 12.9 g/dl (12.0-16.0); Imm Gran Abs Auto 0.02 X10*3/uL (0.00-0.03); Imm Gran Pct Auto 0.3 % (0.0-0.4); Lymphocytes Absolute Auto 1.6 X10*3/uL (1.2-4.9); Lymphocytes Percent Auto 25.8 % (20-40); Mean Corpuscular HGB Conc 33.3 g/dl (31.0-35.0); Mean Corpuscular Hemoglobin 26.5 pg (27.0-33.0); Mean Corpuscular Volume 79.5 fL (80.0-98.0); Mean Platelet Volume 10.5 fL (9.4-12.3); Monocytes Absolute Auto 0.4 X10*3/uL (0.1-1.2); Monocytes Percent Auto 6.7 % (2-11); Neutrophils Absolute Auto 3.7 x10*3/uL (2.0-8.3); Neutrophils Percent Auto 60.1 % (45-73); Platelet Count 219 X10*3/uL (160-400); Red Blood Count 4.87 X10*6/uL (4.20-5.50); Red Cell Distribution Width 13.6 % (11.0-16.0); White Blood Count 6.1 X10*3/uL (4.8-10.8)
[2024-03-15 08:20] LABS: Appearance Urine Clear; Color Urine Yellow; Glucose Urine UA Negative (Negative); Leukocyte Esterase Urine Moderate (2+) (Negative); Nitrite Urine Negative (Negative); PH 7.5 (5.0-9.0); Specific Gravity - Urine 1.015 (1.005-1.025); UMIC TRIGGER UACC YES; Urine Blood Negative (Negative); Urine Ketones Negative (Negative); Urine Protein Negative (Neg-Trace)
[2024-03-15 08:26] LABS: Estimated Average Glucose 148 mg/dL; Hemoglobin A1c % 6.8 % (<6.0)
[2024-03-15 08:32] LABS: Bacteria Urine None Seen (None Seen); Hyaline Casts Urine 0-2 /LPF (0-2); RBC Urine 0-2 /HPF (0-2); Squamous Epithelial Cell Urine 0-2 /HPF (0-2); WBC Urine 0-5 /HPF (0-5)
[2024-03-15 08:41] LABS: Alanine Aminotransferase 21 U/L (0-31); Albumin Level 4.2 g/dL (3.5-5.0); Alkaline Phosphatase 111 U/L (39-117); Anion Gap 12 (12-20); Aspartate Amino Transferase 21 U/L (5-31); Bilirubin Total 0.4 mg/dL (0.0-1.0); Blood Urea Nitrogen 19 mg/dL (9-16); Calcium 9.3 mg/dL (8.4-10.2); Carbon Dioxide 27 mmol/L (22-29); Chloride 106 mmol/L (96-108); Cholesterol 103 mg/dL (<200); Estimated Glomerular Filt Rate > 60; Glucose Fasting 131 mg/dL (60-99); HDL Cholesterol 34 mg/dL (>40); LDL Cholesterol Calculated 58 mg/dL (<100); Potassium 4.2 mmol/L (3.3-5.1); Sodium 141 mmol/L (135-145); Total Protein 7.5 g/dL (6.5-8.0); Triglycerides 59 mg/dL (<150)
[2024-03-15 08:58] LABS: Free T4 (Free Thyroxine) 0.97 ng/dL (0.71-1.85); Thyroid Stimulating Hormone 1.38 uIU/mL (0.32-4.0); Vitamin D 25-OH Total 39.2 ng/mL (>30)
[2024-03-15 10:13] LABS: Creatinine Urine 99.78 mg/dL
== END 2024-03-15 07:41 | disposition home or self-care (01) ==
LOC: HO.LAB 07:40
PROVIDERS: PCP Internal Medicine; Visit Provider Internal Medicine
DX: E55.9 Vitamin D deficiency, unspecified (principal); E03.9 Hypothyroidism, unspecified; E11.9 Type 2 diabetes mellitus without complications; D64.9 Anemia, unspecified; E78.00 Pure hypercholesterolemia, unspecified; R30.0 Dysuria
CPT/HCPCS: 36415; 80053; 80061; 81001; 82043; 82306; 82570; 83036; 84439; 84443; 85025

== ENCOUNTER 2024-03-25 09:38 | Outpatient (AMB) | payer OTHER, SELFPAY ==
--- NOTE | 2024-03-25 09:42 | MHC.PC.OV ---
Vital Signs 03/25/24 09:43 Height 5 ft 1 in Weight 143 lb 6 oz BMI 27.1 BP 90/60 Blood Pressure Location Lt brachial Position Sitting Pulse 77 Pulse Source Pulse Oximeter Pulse Oximetry (%) 98 Oxygen Delivery Method Room Air Intake Visit Reasons: 4mth f/u Intake Note: Patient is here to follow up on DM, HTN,Hypothyroidism. Processing Archivist Required: Yes Processing Archivist Language: Guest Services Attendant Name: Jacinto ([phone]) Vacuum Tank Tender: Not Required per policy Accompanied by: Self / Same As Patient Allergies Penicillins [PENICILLINS] Allergy (Unknown, Verified 03/25/24 10:23) RASH Medication List - Last Reconciled 03/25/24 by Jeremias Cardenas MD alcohol swabs pad topical aspirin 81 mg PO DAILY atorvastatin 10 mg PO DAILY 30 days bisacodyl (Dulcolax (bisacodyl)) 10 mg (2 x 5 mg) PO BEDTIME blood sugar diagnostic (FreeStyle Lite Strips) As directed three times a day blood sugar diagnostic 3 times a day blood sugar diagnostic (FreeStyle Lite Strips) As directed three times a day cholecalciferol (vitamin D3) 25 mcg PO DAILY 90 days citalopram 20 mg PO DAILY dulaglutide (Trulicity) 3 mg (0.5 mL) subcut QWEEK 28 days empagliflozin (Jardiance) 25 mg PO QAM famotidine (Pepcid) 20 mg PO BID FreeStyle Lancets (lancets) USE DIRECTED 3X/DAY NS FreeStyle Lancets (lancets) USE DIRECTED 3X/DAY NS hydroxyzine HCl 25 mg PO DAILY insulin syringe-needle U-100 As directed Lantus Solostar U-100 Insulin (insulin glargine) 16 units (0.16 mL) subcut DAILY 90 days NS levothyroxine 75 mcg PO DAILY 90 days lisinopril 2.5 mg PO DAILY methylcellulose (laxative) (Citrucel) 500 mg PO DAILY mirtazapine 7.5 mg PO BEDTIME omeprazole 20 mg PO DAILY 90 days pen needle, diabetic daily pioglitazone 30 mg PO DAILY 30 days tizanidine 4 mg PO Q8H PRN 10 days trazodone 100 mg PO BEDTIME PRN Tobacco use date assessed: 03/25/24 Dental Screening Dental Screen Date: 11/24/23 HPI 4mth f/u HPI Details Patient comes in today for her follow up visit States that she feels okay She denies any headaches or dizziness Denies any chest pains, no SOB No nausea/vomiting, no abdominal pain - states that her current meds have been keeping her abdominal pain/symptoms from recurring No change in bowel habits noted States that her recurrent low back pain remain well-controlled on her current Rx She had her follow up labs done a couple of weeks ago - to discuss her results Patient was also seen by GI last month and had H. 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 Mother HTN (hypertension) Brother No problems noted. Sister No problems noted. Sister No problems noted. Daughter No problems noted. Son No problems noted. Son No problems noted. Son No problems noted. Social History Household Members: Spouse Housing: Apartment Alcohol intake: never Patient Tobacco Use Status: Never used Tobacco e-Cigarette/Vaping Use: Never Used Second Hand Smoke Exposure: Yes service: No Current occupational status: disabled Sexual orientation: Straight/Heterosexual Gender identity: Female Cognitive needs: No Hearing needs: No Vision needs: No Female Reproductive History Menstrual Age of Menarche: 13 Questionnaire Thrive Questionnaire Date Thrive assessed: 11/24/23 JONN-7 AMB Questionnaire JONN-7 Date JONN - 7 assessed: 11/24/23 Source: Developed by Drs. Slava Velez, Tere Mroeno, Neel Chris and colleagues, with an educational arlette from [employer]. Review of Systems Const Denies chills, Denies fatigue, Denies fever(s) and Denies headache(s) ENT Denies dysphagia, Denies dizziness, Denies otalgia, Denies headache(s), Denies neck pain, Denies odynophagia and Denies sore throat Card Denies chest pain, Denies palpitations and Denies dyspnea Resp Denies cough and Denies dyspnea GI Denies abdominal pain, Denies constipation, Denies dysphagia, Denies heartburn, Denies diarrhea, Denies nausea, Denies odynophagia and Denies vomiting Denies difficulty voiding, Denies nocturia, Denies dysuria and Denies urinary urgency Musc Denies neck pain Skin/Breast Denies rash Neuro Denies dizziness and Denies headache(s) Endo Denies fatigue and Denies palpitations Physical exam (Primary Care) Vital Signs: Last Vital Signs Pulse 77 03/25/24 09:43 BP 90/60 03/25/24 09:43 Pulse Ox 98 03/25/24 09:43 Oxygen Delivery Method Room Air 03/25/24 09:43 BMI result Body Mass Index 27.1 Tobacco/Smoking Status: Tobacco use Status Tobacco use date assessed 03/25/24 03/25/24 09:51 Patient Tobacco Use Status Never used Tobacco 03/25/24 09:51 e-Cigarette/Vaping Use Never Used 03/25/24 09:51 Thrive Assessment: Date of Thrive Assessment Date Thrive assessed 11/24/23 03/25/24 09:51 Const General: no acute distress and alert HENMT Ears: TM's normal bilaterally and EAC's normal Throat: Yes posterior oropharynx normal and Yes tonsils normal (no TP congestion noted) Neck Neck: Yes no lymphadenopathy and Yes supple Thyroid: Thyroid normal Resp Auscultation: clear to auscultation bilaterally, no rales and no wheezes Cardio Rate: regular rate Rhythm: regular rhythm Heart sounds: no murmurs GI Palpation (GI): Soft to palpation and nontender Auscultation: normal bowel sounds General: Yes no CVA tenderness Back/Spine/Pelvis Back: no CVA tenderness Thoracic/Lumbar Spine: paraspinal muscle tenderness bilaterally in the lower lumbar and lumbar spinal tenderness (mild) Skin Rashes: no rashes Extrem General: Yes no clubbing, cyanosis or edema Results Reviewed Results Reviewed: Laboratory Tests 03/15/24 03/15/24 07:48 07:50 WBC 6.1 Hgb 12.9 Hct 38.7 Plt Count 219 Sodium 141 Potassium 4.2 Creatinine 0.79 Estimated GFR > 60 Fasting Glucose 131 H Hemoglobin A1c % 6.8 H Calcium 9.3 AST 21 ALT 21 Triglycerides 59 Cholesterol 103 LDL Cholesterol, Calc 58 HDL Cholesterol 34 L 25-OH Vitamin D Total 39.2 TSH 1.38 Free T4 0.97 Ur Specific [place] 1.015 Urine Protein Negative Urine Glucose (UA) Negative Urine Blood Negative Urine Nitrite Negative Ur Leukocyte Esterase Moderate (2+) H Microalb/Creat Ratio 6.0 Assessment and Plan Assessment & Plan (1) Pure hypercholesterolemia: Code(s): E78.00 - Pure hypercholesterolemia, unspecified Plan: Results of her labs done a couple of weeks ago reviewed and discussed with patient Reinforced low cholesterol diet Continue Atorvastatin 10 mg QD Will recheck her labs and fasting lipids in 4 months for follow up (2) Diabetes mellitus: Code(s): E11.9 - Type 2 diabetes mellitus without complications Qualifiers: Diabetes mellitus type: type 2 Diabetes mellitus store associate insulin use: with store associate use Diabetes mellitus complication status: with hyperglycemia Qualified Code(s): E11.65 - Type 2 diabetes mellitus with hyperglycemia; Z79.4 - group home (current) use of insulin Plan: Her HgbA1c has increased to 6.8% on her labs done a couple of weeks ago (was at 6.2% a few months ago) - goal is <7.0% Reinforced diabetic diet Continue Lantus 16 units Q HS, Trulicity 3 mg SQ once a week, Pioglitazone 30 mg QD and Jardiance 25 mg QD for now but have cautioned her that her HgbA1c has increased from previous Used to see Jeanne Turner at [facility] End[facility] but has not been back there since Jeanne left the practice a couple of years ago Discussed that we will consider referring her back to endocrinology if her diabetes control gets any worse in the future (3) Benign essential hypertension: Code(s): I10 - Essential (primary) hypertension Plan: Reinforced low sodium diet - goal is systolic BP of 120 mm or less She was on Lisinopril 2.5 mg QD previously but states that she was taken off this by endocrinology a while back Her blood pressure is actually lower than usual at 90/60 mm today so will continue to hold off on starting her back on Rx Discussed that we may need to revisit this in the future more for renoprotection rather than for her blood pressure control (4) Hypothyroidism: Code(s): E03.9 - Hypothyroidism, unspecified Qualifiers: Hypothyroidism type: postablative Qualified Code(s): E89.0 - Postprocedural hypothyroidism Plan: Her TFTs remained normal on her recent labs Continue Levothyroxine 75 mcg QD Will recheck her TFTs in 4 months for follow up (5) GERD without esophagitis: Code(s): K21.9 - Gastro-esophageal reflux disease without esophagitis Plan: Dietary restrictions reinforced Her upper GI series done back in July 2023 revealed (+) significant reflux BUT there is also a focal area of contrast pooling in the greater curvature of the stomach suggestive of an ulcer She was previously referred to GI and she was seen last month - H. pylori breath test came back negative She was previously on Omeprazole 20 mg QD and Sucralfate 1 gm QID but these were stopped and she was switched over to Famotidine 20 mg BID instead She is now scheduled for EGD and colonoscopy in July 2024 (6) Low back pain: Code(s): M54.50 - Low back pain, unspecified Qualifiers: Chronicity: acute Back pain laterality: bilateral Sciatica presence: with sciatica Sciatica laterality: bilateral sciatica Qualified Code(s): M54.42 - Lumbago with sciatica, left side; M54.41 - Lumbago with sciatica, right side Plan: Reinforced activity and weight-lifting restrictions Lumbar spine x-rays done in June 2022 revealed (+) multilevel lumbar spondylosis from L4 through S1 In light of her comorbidities, including her GERD, she should continue to avoid all NSAIDs and continue on OTC Tylenol 500 mg Q 6 hours PRN for pain Continue Tizanidine 4 mg TID PRN Discussed again option of referral to physical therapy and can also refer to pain management if she wants - states that she will call for referral(s) when needed (7) Vitamin D deficiency: Code(s): E55.9 - Vitamin D deficiency, unspecified Plan: Continue Vitamin D3 1000 units QD (8) Depression, major, recurrent: Code(s): F33.9 - Major depressive disorder, recurrent, unspecified Qualifiers: Active/Remission status: currently active Major depression episode severity: unspecified Qualified Code(s): F33.9 - Major depressive disorder, recurrent, unspecified Plan: Continue Citalopram 20 mg QD and Mirtazapine 7.5 mg Q HS Follow up with psychiatry as scheduled (9) Overweight (BMI 25.0-29.9): Code(s): E66.3 - Overweight Plan: Reinforced diet/exercise as tolerated/lose weight Plan Follow up in 4 months Orders: Orders Complete Blood Count Auto Diff 4 Months D64.9 - Anemia, unspecified Comprehensive [place]. Panel Fast 4 Months E78.00 - Pure hypercholesterolemia, unspecified Hemoglobin A1c 4 Months E11.9 - Type 2 diabetes mellitus without complications Thyroid Stimulating Hormone 4 Months E03.9 - Hypothyroidism, unspecified UA CC w/rflx Micro + Cult 4 Months R30.0 - Dysuria Lipid Panel 4 Months E78.00 - Pure hypercholesterolemia, unspecified Microalbumin, Random (w Creat) 4 Months E11.9 - Type 2 diabetes mellitus without complications Free T4 (Free Thyroxine) 4 Months E03.9 - Hypothyroidism, unspecified Vitamin D 25-OH Total 4 Months E55.9 - Vitamin D deficiency, unspecified Vitamin B12 and Folate 4 Months E53.8 - Deficiency of other specified B group vitamins Coding Level of Care Code Est Pt Level 4 (90202) Complex EM visit Add On G2211 Diagnoses Pure hypercholesterolemia E78.00 Type 2 diabetes mellitus with hyperglycemia, with long-term current use of insulin E11.65; Z79.4 Diabetes mellitus type: type 2 Diabetes mellitus store associate insulin use: with store associate use Diabetes mellitus complication status: with hyperglycemia Benign essential hypertension I10 Postablative hypothyroidism E89.0 Hypothyroidism type: postablative GERD without esophagitis K21.9 Acute bilateral low back pain with bilateral sciatica M54.42; M54.41 Chronicity: acute Back pain laterality: bilateral Sciatica presence: with sciatica Sciatica laterality: bilateral sciatica Vitamin D deficiency E55.9 Episode of recurrent major depressive disorder, unspecified depression episode severity F33.9 Active/Remission status: currently active Major depression episode severity: unspecified Overweight (BMI 25.0-29.9) E66.3
[2024-03-25 09:43] VITALS: BP 90/60; PULSE 77; O2SAT 98; BMI 27.1
== END 2024-03-25 10:25 | disposition home or self-care (01) ==
PROVIDERS: PCP Internal Medicine; Visit Provider Internal Medicine
DX: E11.65 Type 2 diabetes mellitus with hyperglycemia (principal); Z79.4 Long term (current) use of insulin; F33.9 Major depressive disorder, recurrent, unspecified; E78.00 Pure hypercholesterolemia, unspecified; I10 Essential (primary) hypertension; E89.0 Postprocedural hypothyroidism; K21.9 Gastro-esophageal reflux disease without esophagitis; M54.42 Lumbago with sciatica, left side; M54.41 Lumbago with sciatica, right side; E55.9 Vitamin D deficiency, unspecified; E66.3 Overweight
CPT/HCPCS: 99214; G2211

== ENCOUNTER 2024-05-01 07:49 | Outpatient (REF) | payer OTHER, SELFPAY ==
--- NOTE | ~2024-05-01 | MM_ITS ---
EXAMINATION: MM SCREENING DIGITAL BREAST TOMOSYNTHESIS, BILATERAL CLINICAL INFORMATION: Screening. Asymptomatic. COMPARISON: Mammography: This study is compared with prior exams dating back to 2018. TECHNIQUE: Digital breast tomosynthesis is performed in both the craniocaudal and mediolateral oblique views along with computer-aided detection (CAD). Synthesized 2D images are generated from the tomosynthesis. FINDINGS: There are scattered areas of fibroglandular density (ACR BI-RADS breast composition Category b). There are no significant masses, abnormal calcifications, or other abnormalities. MM/MM tomosynthesis screening BI IMPRESSION: No mammographic evidence of malignancy. ASSESSMENT: BI-RADS BI-RADS 1 - Negative RECOMMENDATION: Routine annual mammography screening. 1 year F/U This examination should not preclude the clinical evaluation of a suspicious palpable abnormality. This patient's information was entered into a reminder system with a target due date for their next mammogram. Electronically signed by: Renetta Islas MD 05/23/2024 03:59 PM EDT
== END 2024-05-01 07:50 | disposition home or self-care (01) ==
LOC: HO.MAMMO 07:49
PROVIDERS: PCP Internal Medicine; Visit Provider Internal Medicine
DX: Z12.31 Encounter for screening mammogram for malignant neoplasm of breast (principal)
CPT/HCPCS: 77063; 77067

== ENCOUNTER → 2024-05-01 08:15 | Outpatient (BNV) | payer OTHER, SELFPAY | PROVIDERS: PCP Internal Medicine; Visit Provider Radiology Diagnostic Radiology | DX: Z12.31 Encounter for screening mammogram for malignant neoplasm of breast (principal) | CPT/HCPCS: 77063; 77067 ==

== ENCOUNTER 2024-07-11 10:05 | Day surgery (SDC) | payer OTHER, SELFPAY ==
[2024-07-09 11:47] VITALS: BMI 27.1
--- NOTE | 2024-07-10 10:56 | HO.ANESPROP2 ---
HPI - Anesthesia Eval Consult details Narrative: 59yo F for Upper Endoscopy and Colonoscopy Anesthesia Pre-Procedure Meds Is the patient on any of the following meds?: GLP1/DPP4 and SGLT2 Inhib PMFSH Active Problems Active Problems: All Active Problems Gastric ulcer (Acute) Epigastric abdominal pain (Acute) Low back pain (Acute) Overweight (BMI 25.0-29.9) (Acute) Vitamin D deficiency (Acute) Benign essential hypertension (Acute) Obesity (BMI 30-39.9) (Acute) DM2 (diabetes mellitus, type 2) (Acute) Diabetes mellitus (Acute) Well woman exam with routine gynecological exam (Acute) Diabetic nephropathy associated with type 2 diabetes mellitus (Acute) Mild non proliferative diabetic retinopathy (Acute) custodial (current) use of insulin (Acute) Annual physical exam (Acute) Overweight (BMI 25.0-29.9) (Acute) GERD without esophagitis (Acute) Pure hypercholesterolemia (Acute) Diabetes type 2, controlled (Acute) Difficulty sleeping (Acute) Hypothyroidism (Acute) Depression, major, recurrent (Acute) Diabetes 1.5, managed as type 1 (Acute) Past Medical History Medical History Benign essential hypertension Obesity (BMI 30-39.9) Diabetic nephropathy associated with type 2 diabetes mellitus 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 Mother HTN (hypertension) Brother No problems noted. Sister No problems noted. Sister No problems noted. Daughter No problems noted. Son No problems noted. Son No problems noted. Son No problems noted. Surgical History Surgical History History of removal of cyst History of colonoscopy History of total hysterectomy Social History Social History Household Members: Spouse Housing: Apartment Are you a primary regular senior care provider to a significant other at home: No Do you presently have visiting nurse or other home services: No Alcohol intake: never Patient Tobacco Use Status: Never used Tobacco e-Cigarette/Vaping Use: Never Used Second Hand Smoke Exposure: Yes service: No Current occupational status: disabled Sexual orientation: Straight/Heterosexual Gender identity: Female Cognitive needs: No Hearing needs: No Vision needs: No Meds Allergies Allergy/AdvReac Type Severity Reaction Status Date / Time Penicillins [PENICILLINS] Allergy Unknown RASH Verified 03/25/24 10:23 Home Medications ?Medication ?Instructions ?Recorded ?Confirmed ?Last Taken ?Type alcohol swabs pad topical 07/08/20 03/25/24 Unknown History hydroxyzine HCl 25 mg tablet 25 mg PO DAILY 07/08/20 07/11/24 Unknown History insulin syringe-needle U-100 09/19 #90 ea 07/08/20 03/25/24 Unknown History mL 31 gauge x 15/64 citalopram 20 mg tablet 20 mg PO DAILY 09/23/20 07/11/24 Unknown History mirtazapine 7.5 mg tablet 7.5 mg PO BEDTIME 12/22/20 07/11/24 Unknown History trazodone 50 mg tablet 100 mg PO BEDTIME PRN Insomnia 09/14/21 07/11/24 Unknown History aspirin 81 mg tablet,delayed 81 mg PO DAILY 02/20/24 07/11/24 Unknown History release lisinopril 2.5 mg tablet 2.5 mg PO DAILY 02/20/24 07/11/24 Unknown History Exam Height,Weight and Vital Signs: Height 5 ft 1 in Weight 65.034 kg Assessment and Plan Assessment Anesthesia Assessment: Chart Reviewed
--- NOTE | 2024-07-11 09:43 | HO.ANESPROP2 ---
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 (Acute) Annual physical exam (Acute) Overweight (BMI 25.0-29.9) (Acute) GERD without esophagitis (Acute) Pure hypercholesterolemia (Acute) Diabetes type 2, controlled (Acute) Difficulty sleeping (Acute) Hypothyroidism (Acute) Depression, major, recurrent (Acute) Diabetes 1.5, managed as type 1 (Acute) Past Medical History Medical History Benign essential hypertension Obesity (BMI 30-39.9) Diabetic nephropathy associated with type 2 diabetes mellitus 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 Mother HTN (hypertension) Brother No problems noted. Sister No problems noted. Sister No problems noted. Daughter No problems noted. Son No problems noted. Son No problems noted. Son No problems noted. Family history of problems with anesthesia: No Surgical History Surgical History History of removal of cyst History of colonoscopy History of total hysterectomy History of Problems with Anesthesia: No Social History Social History Household Members: Spouse Housing: Apartment Are you a primary career discovery teacher to a significant other at home: No Do you presently have visiting nurse or other home services: No Alcohol intake: never Patient Tobacco Use Status: Never used Tobacco e-Cigarette/Vaping Use: Never Used Second Hand Smoke Exposure: Yes service: No Current occupational status: disabled Sexual orientation: Straight/Heterosexual Gender identity: Female Cognitive needs: No Hearing needs: No Vision needs: No Meds Allergies Allergy/AdvReac Type Severity Reaction Status Date / Time Penicillins [PENICILLINS] Allergy Unknown RASH Verified 03/25/24 10:23 Home Medications ?Medication ?Instructions ?Recorded ?Confirmed ?Last Taken ?Type alcohol swabs pad topical 07/08/20 03/25/24 Unknown History hydroxyzine HCl 25 mg tablet 25 mg PO DAILY 07/08/20 03/25/24 Unknown History insulin syringe-needle U-100 1/2 #90 ea 07/08/20 03/25/24 Unknown History mL 31 gauge x 15/64 citalopram 20 mg tablet 20 mg PO DAILY 09/23/20 03/25/24 Unknown History mirtazapine 7.5 mg tablet 7.5 mg PO BEDTIME 12/22/20 03/25/24 Unknown History trazodone 50 mg tablet 100 mg PO BEDTIME PRN 09/14/21 03/25/24 Unknown History aspirin 81 mg tablet,delayed 81 mg PO DAILY 02/20/24 03/25/24 Unknown History release lisinopril 2.5 mg tablet 2.5 mg PO DAILY 02/20/24 03/25/24 Unknown History Exam Height,Weight and Vital Signs: Height 5 ft 1 in Weight 65.034 kg Airway Mallampati Class: III TM Dist: >3cm Neck ROM: Full Heart: RRR Lungs: CTA Assessment and Plan Assessment Anesthesia Assessment: Anesthesia Plan Discussed and Chart Reviewed Final Anesthetic Review Family History of Problems with Anesthesia: No History of Problems with Anesthesia: No NPO: Yes ASA Class: III Final Preanesthetic Review: Meds/Allgs Chart Reviewed, Consent Obtained/Reviewed and Anes Risks/Benef Reviewed Patient Risk: Intermediate Procedure Risk: Low Anesthetic Plan Anesthetic Plan: MAC: Disposition: Standard PACU
[2024-07-11] MEDS: Lactated Ringers 1,000 ML 100 ML IVCONT (10:33)
[2024-07-11 10:43] VITALS: BP 131/84; PULSE 82; RESP 18; TEMP 36.7; O2SAT 98
[2024-07-11 10:43] LABS: Glucose, Whole Blood 124 mg/dL (60-115)
[2024-07-11 10:44] VITALS: BMI 28.0
--- NOTE | 2024-07-11 11:04 | MHC.SHP ---
Pre-Procedural Eval Section A - 24 Hr Update-Section A only Date of Service: 07/11/24 Section B - Complete if H&P > 30 days Chief Complaint: Abd pain, PUD, screening Details of Present Illness: Medical History Benign essential hypertension Obesity (BMI 30-39.9) Diabetic nephropathy associated with type 2 diabetes mellitus nursing home (current) use of insulin GERD without esophagitis Pure hypercholesterolemia Diabetes type 2, controlled Hypothyroidism Depression, major, recurrent Surgical History History of removal of cyst History of colonoscopy History of total hysterectomy Allergies: Allergies Allergy/AdvReac Type Severity Reaction Status Date / Time Penicillins [PENICILLINS] Allergy Unknown RASH Verified 03/25/24 10:23 Review of Systems Review of Systems Comment: Ten point ROS negative Exam Exam Comment: Gen appear: No acute distress HEENT: no icterus Chest: No overt resp distress Abd: soft, nontender, nondistended Psych: Stable affect, answering questions appropriately Neuro: A/Ox3 noted to move all extremities spontaneously Ext: no peripheral edema Plan Diagnosis/Plan: Unchanged I have reviewed the history and physical and performed a pertinent physical examination on my patient. No changes have occurred unless specified. Time Spent With Patient Time: Total time managing care of this patient today ____ minutes.
--- NOTE | 2024-07-11 11:10 | P.OPN-COLO_ITS ---
Colonoscopy Operative Note Operative Note Date of Service: 07/11/24 Narrative: Procedure: Upper endoscopy and colonoscopy Indication: Abd pain, PUD, screening Endoscopist: Lore Del Castillo MD Anesthesia Provider: Dr Krystal Brown Anesthesia type: MAC Instrument: GIF-H190 and [id number]-[id number] EGD Procedure:?? The procedure, indications, preparation and potential complications were reviewed with the patient, who indicated understanding and gave written informed consent to proceed. The endoscope was introduced through the mouth, and advanced to the 2nd part of the duodenum. The mucosa was carefully examined on slow withdrawal of the endoscope. The patient tolerated the procedure well. There were no immediate complications.? EGD Findings:? * Esophagus:? Normal esophageal mucosa was noted. The Z-line was at 36 cm. Cold forceps biopsies were taken from lower esophagus. * Stomach:? Normal gastric mucosa. No erosions or ulcers noted. Retroflexion was performed in the cardia. Cold forceps biopsies were taken from the stomach as per Susi protocol. * Duodenum:? Normal duodenal mucosa. Cold forceps biopsies were taken from the duodenal bulb and 2nd portion of the duodenum to rule out celiac sprue. Colonoscopy Procedure:? The patient was then turned for the colonoscopy. A digital rectal exam was performed which was normal.? A distal attachment cap was affixed to the tip of the scope and the colonoscope was then inserted through the anus and advanced through the colon and advanced to the cecum at 75 cm and terminal ileum.? Appendiceal orifice and ileocecal valve were identified. Mucosa was carefully examined under high definition white light as the instrument was slowly withdrawn in a retrograde panoramic fashion. Retroflexion was performed in rectum. The procedure was not difficult. The quality of the prep was BBPS: 3+2+3 = adequate Withdrawal time 9 minutes Limitations: No limitations Findings: Mucosa: Normal colon and terminal ileum mucosa. Protruding lesions: * 1 sessile 2 mm polyp in cecum. Cold forceps polypectomy was performed. The polyp was completely removed and retrieved. * Small internal hemorrhoids without stigmata of recent bleeding. Excavated lesions: * Mild diverticulosis of left colon. Impression: 1. Normal esophagus (biopsy) 2. Normal stomach (biopsy) 3. Normal duodenum (biopsy) 4. 1 polyp removed 5. Normal colon and terminal ileum mucosa 6. Internal hemorrhoids 7. Diverticulosis Recommendations:?? * Follow-up path results * Avoid NSAIDs * Repeat colonoscopy for CRC screening in 7-10 years.
[2024-07-11 11:45] VITALS: BP 110/68; PULSE 79; RESP 16; TEMP 36.3; O2SAT 100
[2024-07-11 12:00] VITALS: BP 119/74; PULSE 77; RESP 16; TEMP 36.2; O2SAT 100
--- NOTE | 2024-07-11 12:47 | HO.POSTANES ---
Post Anesthesia Evaluation Post Anesthesia Evaluation Date of Service: 07/11/24 Vital Signs: Vital Signs Temp Pulse Resp BP Pulse Ox O2 Del Method 07/11/24 12:00 97.2 F 77 16 119/74 100 Room Air 07/11/24 11:45 97.3 F 79 16 110/68 100 Room Air 07/11/24 10:43 98.1 F 82 18 131/84 98 Room Air Anesthesia: Monitored Mental Status: Awake Pain Control: Satisfactory Nausea/Vomiting: None Hydration: Adequate Anesthesia-Related Issues: No Anes. Related Issues
== END 2024-07-11 12:35 | disposition home or self-care (01) ==
PROVIDERS: PCP Internal Medicine; Visit Provider Internal Medicine
PROC: (CPT 45380; principal; 2024-07-11 11:30)
DX: Z12.11 Encounter for screening for malignant neoplasm of colon (principal); K63.5 Polyp of colon; K63.89 Other specified diseases of intestine; K57.30 Diverticulosis of large intestine without perforation or abscess without bleeding; K64.8 Other hemorrhoids; K59.01 Slow transit constipation; K21.9 Gastro-esophageal reflux disease without esophagitis; R10.13 Epigastric pain; R14.0 Abdominal distension (gaseous); I10 Essential (primary) hypertension; E78.00 Pure hypercholesterolemia, unspecified; E11.21 Type 2 diabetes mellitus with diabetic nephropathy; E03.9 Hypothyroidism, unspecified; G47.00 Insomnia, unspecified; F33.9 Major depressive disorder, recurrent, unspecified; Z79.4 Long term (current) use of insulin; Z79.85 Long-term (current) use of injectable non-insulin antidiabetic drugs; Z88.0 Allergy status to penicillin
CPT/HCPCS: 45380; 43239; 82947; 88305; 88313; 88342; J2003; J2704

== ENCOUNTER → 2024-07-11 10:05 | Outpatient (BNV) | payer OTHER, SELFPAY | PROVIDERS: PCP Internal Medicine; Visit Provider Internal Medicine | DX: Z12.11 Encounter for screening for malignant neoplasm of colon (principal); K63.5 Polyp of colon; K63.89 Other specified diseases of intestine; K64.8 Other hemorrhoids; K27.9 Peptic ulcer, site unspecified, unspecified as acute or chronic, without hemorrhage or perforation | CPT/HCPCS: 43239; 45380 ==

== ENCOUNTER 2024-07-26 13:02 | Outpatient (REF) | payer OTHER, SELFPAY ==
[2024-07-26 13:52] LABS: MANUAL DIFF FLAG NO
[2024-07-26 14:23] LABS: Appearance Urine Clear; Color Urine Yellow; Glucose Urine UA Negative (Negative); Leukocyte Esterase Urine Negative (Negative); Nitrite Urine Positive (Negative); PH 5.5 (5.0-9.0); UMIC TRIGGER UACC YES; Urine Blood Negative (Negative); Urine Ketones 15 mg/dL (Negative); Urine Protein Negative (Neg-Trace)
[2024-07-26 14:26] LABS: Bacteria Urine 4+ (None Seen); Hyaline Casts Urine 0-2 /LPF (0-2); RBC Urine 0-2 /HPF (0-2); Squamous Epithelial Cell Urine 0-2 /HPF (0-2); UACC Culture Trigger YES; WBC Urine 0-5 /HPF (0-5)
[2024-07-26 14:26] LABS: Basophils Percent Auto 0.5 % (0-2); Eosinophils Absolute Auto 0.1 X10*3/uL (0.0-0.4); Eosinophils Percent Auto 1.4 % (0-4); Hematocrit 37.7 % (37.0-47.0); Hemoglobin 12.7 g/dl (12.0-16.0); Imm Gran Abs Auto 0.02 X10*3/uL (0.00-0.03); Imm Gran Pct Auto 0.3 % (0.0-0.4); Lymphocytes Absolute Auto 1.6 X10*3/uL (1.2-4.9); Lymphocytes Percent Auto 25.8 % (20-40); Mean Corpuscular HGB Conc 33.7 g/dl (31.0-35.0); Mean Corpuscular Hemoglobin 26.6 pg (27.0-33.0); Mean Corpuscular Volume 78.9 fL (80.0-98.0); Monocytes Absolute Auto 0.4 X10*3/uL (0.1-1.2); Monocytes Percent Auto 6.4 % (2-11); Neutrophils Absolute Auto 4.1 x10*3/uL (2.0-8.3); Neutrophils Percent Auto 65.6 % (45-73); Platelet Count 262 X10*3/uL (160-400); Red Blood Count 4.78 X10*6/uL (4.20-5.50); Red Cell Distribution Width 14.1 % (11.0-16.0); White Blood Count 6.3 X10*3/uL (4.8-10.8)
[2024-07-26 14:33] LABS: Estimated Average Glucose 131 mg/dL; Hemoglobin A1C 149.9579 umol/L; Hemoglobin A1c % 6.2 % (<6.0); Total Hemoglobin (HGBA1C) 3353.5186 umol/L
[2024-07-26 15:08] LABS: Microalbum/Creatinine Ratio Ur 11.3 ug/mg cr (<30)
[2024-07-26 15:43] LABS: Alanine Aminotransferase 24 U/L (0-31); Albumin Level 4.4 g/dL (3.5-5.0); Alkaline Phosphatase 85 U/L (39-117); Anion Gap 15 (12-20); Aspartate Amino Transferase 31 U/L (5-31); Bilirubin Total 0.7 mg/dL (0.0-1.0); Blood Urea Nitrogen 15 mg/dL (9-16); Calcium 9.5 mg/dL (8.4-10.2); Carbon Dioxide 24 mmol/L (22-29); Chloride 108 mmol/L (96-108); Cholesterol 123 mg/dL (<200); Estimated Glomerular Filt Rate > 60; Glucose Fasting 86 mg/dL (60-99); HDL Cholesterol 47 mg/dL (>40); LDL Cholesterol Calculated 69 mg/dL (<100); Potassium 3.9 mmol/L (3.3-5.1); Sodium 143 mmol/L (135-145); Total Protein 7.7 g/dL (6.5-8.0); Triglycerides 36 mg/dL (<150)
[2024-07-26 16:15] LABS: Free T4 (Free Thyroxine) 1.13 ng/dL (0.71-1.85)
[2024-07-26 16:28] LABS: Folate 14.2 ng/mL (> or = 4.0); Vitamin B12 341 pg/mL (200-900)
== END 2024-07-26 13:03 | disposition home or self-care (01) ==
LOC: HO.LAB 13:02
PROVIDERS: PCP Internal Medicine; Visit Provider Internal Medicine
DX: R30.0 Dysuria (principal); E78.00 Pure hypercholesterolemia, unspecified; E03.9 Hypothyroidism, unspecified; E53.8 Deficiency of other specified B group vitamins; D64.9 Anemia, unspecified; E11.9 Type 2 diabetes mellitus without complications; E55.9 Vitamin D deficiency, unspecified
CPT/HCPCS: 36415; 80053; 80061; 81001; 82043; 82306; 82570; 82607; 82746; 83036; 84439; 84443; 85025; 87086; 87088; 87186

== ENCOUNTER 2024-07-31 10:12 | Outpatient (AMB) | payer OTHER, SELFPAY ==
[2024-07-31 10:17] VITALS: BP 110/80; PULSE 71; O2SAT 95; BMI 26.7
--- NOTE | 2024-07-31 10:17 | MHC.PC.OV ---
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 Required: No Accompanied by: Self / Same As Patient Allergies Penicillins [PENICILLINS] Allergy (Unknown, Verified 08/04/24 12:08) RASH Medication List - Last Reconciled 08/04/24 by Jeremias Cardenas MD alcohol swabs pad topical aspirin 81 mg PO DAILY atorvastatin 10 mg PO DAILY 30 days blood sugar diagnostic 3 times a day blood sugar diagnostic (FreeStyle Lite Strips) As directed three times a day blood sugar diagnostic (FreeStyle Lite Strips) As directed three times a day cholecalciferol (vitamin D3) 25 mcg PO DAILY 90 days citalopram 20 mg PO DAILY dulaglutide (Trulicity) 3 mg (0.5 mL) subcut QWEEK 28 days empagliflozin (Jardiance) 25 mg PO QAM famotidine (Pepcid) 20 mg PO BID 90 days FreeStyle Lancets (lancets) USE DIRECTED 3X/DAY NS FreeStyle Lancets (lancets) USE DIRECTED 3X/DAY NS hydroxyzine HCl 25 mg PO DAILY insulin syringe-needle U-100 As directed Lantus Solostar U-100 Insulin (insulin glargine) 16 units (0.16 mL) subcut DAILY 90 days NS levothyroxine 75 mcg PO DAILY 90 days lisinopril 2.5 mg PO DAILY methylcellulose (laxative) (Citrucel) 500 mg PO DAILY mirtazapine 7.5 mg PO BEDTIME omeprazole 20 mg PO DAILY 90 days pen needle, diabetic daily pioglitazone 30 mg PO DAILY 30 days tizanidine 4 mg PO Q8H PRN 10 days trazodone 100 mg PO BEDTIME PRN Tobacco use date assessed: 07/31/24 Dental Screening Dental Screen Date: 07/31/24 Did you have a dental visit in the last 12 months?: Yes Did you have a dental problem in the last 6 months where you did not have access to dental care?: No Was dental information given to patient?: Patient has dentist HPI 4 MO F/U HPI Details Patient comes in today for her follow-up visit States that she feels okay but reports experiencing increasing pain in her lower back lately She denies any headaches or dizziness She denies any chest pains, no shortness of breath No nausea/vomiting, no abdominal pain No change in bowel habits noted She had her follow-up labs done a few days ago - to discuss her results Patient also had EGD and colonoscopy done last month and recalls being advised that her next colonoscopy will be in 7-10 years [facility] Medical History (Updated 08/04/24 @ 12:31 by Jeremias Cardenas MD) Lumbar spondylosis Benign essential hypertension Obesity (BMI 30-39.9) Diabetic nephropathy associated with type 2 diabetes mellitus correction (current) use of insulin GERD without esophagitis Pure hypercholesterolemia Diabetes type 2, controlled Hypothyroidism Depression, major, recurrent Surgical History (Updated 08/04/24 @ 12:28 by Jeremias Cardenas MD) History of removal of cyst History of colonoscopy History of total hysterectomy Family History Father No problems noted. Mother HTN (hypertension) Brother No problems noted. Sister No problems noted. Sister No problems noted. Daughter No problems noted. Son No problems noted. Son No problems noted. Son No problems noted. Social History Household Members: Spouse Housing: Apartment Are you a primary wound care technician to a significant other at home: No Do you presently have visiting nurse or other home services: No Alcohol intake: never Patient Tobacco Use Status: Never used Tobacco e-Cigarette/Vaping Use: Never Used Second Hand Smoke Exposure: Yes service: No Current occupational status: disabled Sexual orientation: Straight/Heterosexual Gender identity: Female Cognitive needs: No Hearing needs: No Vision needs: No Female Reproductive History Menstrual Age of Menarche: 13 Questionnaire PHQ-9 Over the last 2 weeks, how often have you been bothered by any of the following problems? 1. Little interest or pleasure in doing things: not at all 2. Feeling down, depressed, or hopeless: not at all 3. Trouble falling or staying asleep, or sleeping too much: not at all 4. Feeling tired or having little energy: not at all 5. Poor appetite or overeating: not at all 6. Feeling bad about yourself - or that you are a failure or have let yourself or your family down: not at all 7. Trouble concentrating on things, such as reading the newspaper or watching television: not at all 8. Moving or speaking so slowly that other people could have noticed. Or the opposite - being so fidgety or restless that you have been moving around a lot more than usual: not at all 9. Thoughts that you would be better off or of hurting yourself in some way: not at all Total score: 0 Depression Screening Interpretation: Negative Depression Screening Done: Yes 14064 - PHQ-9 Billing: Yes Source: Developed by Drs. Slava Velez, Tere Moreno, Neel Chris and colleagues, with an educational arlette from [employer]. Thrive Questionnaire Date Thrive assessed: 07/31/24 I am a: Patient What is your living situation today?: I have a steady place to live Within the past 12 months, did the food you bought not last and you didn't have the money to get more?: Never true Within the past 12 months, did you worry whether your food would run out before you got money to buy more?: Never true Do you have trouble paying for medicines?: No Do you have trouble getting transportation to medical appointments?: No Do you have trouble paying your heating and electricity bill?: No Do you have trouble taking care of your child, family member or friend?: No Do you have trouble with day-to-day activities such as bathing, preparing meals, shopping, managing finances, etc.?: No Are you currently unemployed and looking for a job?: No Are you interested in more education?: No Please select the resources that you would like help with: None Currently or been in a relationship where the following occur: No concerns reported THRIVE Score: 0 AUDIT C Alcohol Use Questionnaire (AUDIT-C) 1. How often do you have a drink containing alcohol?: Never Total Score: 0 Score Reviewed/Action Taken: Yes JONN-7 AMB Questionnaire JONN-7 Date JONN - 7 assessed: 07/31/24 Feeling nervous, anxious, or on edge: 0 = Not at all Not being able to stop or control worryin = Not at all Worrying too much about different things: 0 = Not at all Trouble relaxin = Not at all Being so restless that it is hard to sit still: 0 = Not at all Becoming easily annoyed or irritable: 0 = Not at all Feeling afraid as if something awful might happen: 0 = Not at all Total JONN-7 score (0-4 normal; 5-9 mild; 10-14 moderate; 15-21 severe): 0 Source: Developed by Drs. Slava Velez, Tere Moreno, Neel Chris and colleagues, with an educational arlette from [employer]. Review of Systems Const Denies chills, Denies fatigue, Denies fever(s) and Denies headache(s) ENT Denies dysphagia, Denies dizziness, Denies otalgia, Denies headache(s), Denies neck pain, Denies odynophagia and Denies sore throat Card Denies chest pain, Denies palpitations and Denies dyspnea Resp Denies cough and Denies dyspnea GI Denies abdominal pain, Denies constipation, Denies dysphagia, Denies heartburn, Denies diarrhea, Denies nausea, Denies odynophagia and Denies vomiting Denies difficulty voiding, Denies nocturia, Denies dysuria and Denies urinary urgency Musc Reports back pain (increasing lately over the lower back) and Denies neck pain Skin/Breast Denies rash Neuro Denies dizziness and Denies headache(s) Endo Denies fatigue and Denies palpitations Physical exam (Primary Care) Vital Signs: Last Vital Signs Pulse 71 07/31/24 10:17 BP 110/80 07/31/24 10:17 Pulse Ox 95 07/31/24 10:17 Oxygen Delivery Method Room Air 07/31/24 10:17 BMI result Body Mass Index 26.7 Tobacco/Smoking Status: Tobacco use Status Tobacco use date assessed 07/31/24 07/31/24 10:22 Patient Tobacco Use Status Never used Tobacco 07/31/24 10:22 e-Cigarette/Vaping Use Never Used 07/31/24 10:22 PHQ-9: PHQ-9 Score PHQ-9: Total score 0 08/04/24 12:25 Depression Screening Interpretation: Negative Thrive Assessment: Date of Thrive Assessment Date Thrive assessed 07/31/24 07/31/24 10:22 Currently or been in a relationship where the following occur: No concerns reported Const General: no acute distress and alert HENMT Ears: TM's normal bilaterally and EAC's normal Throat: Yes posterior oropharynx normal and Yes tonsils normal (no TP congestion noted) Neck Neck: Yes no lymphadenopathy and Yes supple Thyroid: Thyroid normal Resp Auscultation: clear to auscultation bilaterally, no rales and no wheezes Cardio Rate: regular rate Rhythm: regular rhythm Heart sounds: no murmurs GI Palpation (GI): Soft to palpation and nontender Auscultation: normal bowel sounds General: Yes no CVA tenderness Back/Spine/Pelvis Back: no CVA tenderness Thoracic/Lumbar Spine: paraspinal muscle tenderness bilaterally in the lower lumbar and lumbar spinal tenderness Skin Rashes: no rashes Extrem General: Yes no clubbing, cyanosis or edema Office Procedures Flu Questionnaire Does the patient have a severe egg allergy?: No Immunizations Fluarix Triv 5540-2323 (PF) 45 mcg (15 mcg x 3)/0.5 mL IM syringe Performing Provider: Jeremias Cardenas MD [facility] [place] [facility] Documented (not given) by: MAGNO Rabago on 07/31/24 10:23 Reason Not Given: Received Previously Results Reviewed Results Reviewed: Laboratory Tests 07/26/24 07/26/24 13:40 13:45 WBC 6.3 Hgb 12.7 Hct 37.7 Plt Count 262 Sodium 143 Potassium 3.9 Creatinine 0.75 Estimated GFR > 60 Fasting Glucose 86 Hemoglobin A1c % 6.2 H Calcium 9.5 AST 31 ALT 24 Triglycerides 36 Cholesterol 123 LDL Cholesterol, Calc 69 HDL Cholesterol 47 Vitamin B12 341 25-OH Vitamin D Total 39.0 TSH 1.20 Free T4 1.13 Ur Specific Hedrick 1.020 Urine Protein Negative Urine Glucose (UA) Negative Urine Blood Negative Urine Nitrite Positive H Ur Leukocyte Esterase Negative Microalb/Creat Ratio 11.3 Coding Level of Care Code Est Pt Level 4 (32464) Complex EM visit Add On G2211 Diagnoses Pure hypercholesterolemia E78.00 Type 2 diabetes mellitus with hyperglycemia, with long-term current use of insulin E11.65; Z79.4 Diabetes mellitus type: type 2 Diabetes mellitus half-way insulin use: with magnetic resonance imaging director use Diabetes mellitus complication status: with hyperglycemia Benign essential hypertension I10 Postablative hypothyroidism E89.0 Hypothyroidism type: postablative GERD without esophagitis K21.9 Lumbar spondylosis M47.816 Vitamin D deficiency E55.9 Episode of recurrent major depressive disorder, unspecified depression episode severity F33.9 Active/Remission status: currently active Major depression episode severity: unspecified Overweight (BMI 25.0-29.9) E66.3 Additional Codes PHQ-9 - 33058 - PHQ-9 Billing: Yes ([id number]) Assessment & Plan Assessment & Plan (1) Pure hypercholesterolemia: Code(s): E78.00 - Pure hypercholesterolemia, unspecified Category: Medical Plan: Results of her labs done a few days ago reviewed and discussed with patient Reinforced low cholesterol diet Continue Atorvastatin 10 mg QD Will recheck her labs and fasting lipids in 4 months for follow up (2) Diabetes mellitus: Code(s): E11.9 - Type 2 diabetes mellitus without complications Category: Medical Qualifiers: Diabetes mellitus type: type 2 Diabetes mellitus magnetic resonance imaging director insulin use: with half-way use Diabetes mellitus complication status: with hyperglycemia Qualified Code(s): E11.65 - Type 2 diabetes mellitus with hyperglycemia; Z79.4 - 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 insulin Plan: Her HgbA1c has improved again to 6.2% on her labs done a few days ago (was at 6.8% a few months ago) - goal is <7.0% Reinforced diabetic diet Continue Lantus 16 units Q HS, Trulicity 3 mg SQ once a week, Pioglitazone 30 mg QD and Jardiance 25 mg QD for now but have cautioned her that her HgbA1c has increased from previous Patient used to see Jeanne Turner at [facility] [place] [facility] but has not been back there since Jeanne left the practice a couple of years ago We will consider referring her back to endocrinology if her diabetes control gets worse in the future (3) Benign essential hypertension: Code(s): I10 - Essential (primary) hypertension Category: Medical Plan: Reinforced low sodium diet - goal is systolic BP of 120 mm or less She was on Lisinopril 2.5 mg QD previously but states that she was taken off this by endocrinology a while back Discussed again that we may need to revisit this in the future more for renoprotection rather than for her blood pressure control (4) Hypothyroidism: Code(s): E03.9 - Hypothyroidism, unspecified Category: Medical Qualifiers: Hypothyroidism type: postablative Qualified Code(s): E89.0 - Postprocedural hypothyroidism Plan: Her TFTs remained normal on her recent labs Continue Levothyroxine 75 mcg QD Will recheck her TFTs in 4 months for follow up (5) GERD without esophagitis: Code(s): K21.9 - Gastro-esophageal reflux disease without esophagitis Category: Medical Plan: Dietary restrictions reinforced Her upper GI series done back in July 2023 revealed (+) significant reflux BUT there is also a focal area of contrast pooling in the greater curvature of the stomach suggestive of an ulcer She was previously referred to GI and she was seen last month - H. pylori breath test came back negative She was previously on Omeprazole 20 mg QD and Sucralfate 1 gm QID but these were stopped and she was switched over to Famotidine 20 mg BID instead She had EGD and colonoscopy done last month - EGD reportedly came back normal Follow up with GI as scheduled (6) Lumbar spondylosis: Code(s): M47.816 - Spondylosis without myelopathy or radiculopathy, lumbar region Category: Medical Plan: Reinforced activity and weight-lifting restrictions Lumbar spine x-rays done in June 2022 revealed (+) multilevel lumbar spondylosis from L4 through S1 In light of her comorbidities, including her GERD, she should continue to avoid all NSAIDs and continue on OTC Tylenol 500 mg Q 6 hours PRN for pain Continue Tizanidine 4 mg TID PRN Discussed again option of referral to physical therapy and can also refer to pain management if she wants - states that she will call for referral(s) when needed Due to her increasing low back pain lately, will send her for repeat lumbar spine x-rays for further evaluation (7) Vitamin D deficiency: Code(s): E55.9 - Vitamin D deficiency, unspecified Category: Medical Plan: Continue Vitamin D3 1000 units QD (8) Depression, major, recurrent: Code(s): F33.9 - Major depressive disorder, recurrent, unspecified Category: Medical Qualifiers: Active/Remission status: currently active Major depression episode severity: unspecified Qualified Code(s): F33.9 - Major depressive disorder, recurrent, unspecified Plan: Continue Citalopram 20 mg QD and Mirtazapine 7.5 mg Q HS Follow up with psychiatry as scheduled (9) Overweight (BMI 25.0-29.9): Code(s): E66.3 - Overweight Category: Medical Plan: Reinforced diet/exercise as tolerated/lose weight Plan Follow up in 4 months Orders: Orders Influenza [id number] Immunization 07/31/24 Z23 - Encounter for immunization XR lumbar spine 2-3V 07/31/24 M54.50 - Low back pain, unspecified Lipid Panel 4 Months E78.00 - Pure hypercholesterolemia, unspecified Complete Blood Count Auto Diff 4 Months D64.9 - Anemia, unspecified UA CC w/rflx Micro + Cult 4 Months R30.0 - Dysuria Hemoglobin A1c 4 Months E11.9 - Type 2 diabetes mellitus without complications Free T4 (Free Thyroxine) 4 Months E03.9 - Hypothyroidism, unspecified Thyroid Stimulating Hormone 4 Months E03.9 - Hypothyroidism, unspecified
== END 2024-07-31 11:07 | disposition home or self-care (01) ==
PROVIDERS: PCP Internal Medicine; Visit Provider Internal Medicine
DX: E78.00 Pure hypercholesterolemia, unspecified (principal); E11.65 Type 2 diabetes mellitus with hyperglycemia; Z79.4 Long term (current) use of insulin; F33.9 Major depressive disorder, recurrent, unspecified; I10 Essential (primary) hypertension; E89.0 Postprocedural hypothyroidism; K21.9 Gastro-esophageal reflux disease without esophagitis; M47.816 Spondylosis without myelopathy or radiculopathy, lumbar region; E55.9 Vitamin D deficiency, unspecified; E66.3 Overweight

== ENCOUNTER 2024-07-31 10:12 | Outpatient (REF) | payer OTHER, SELFPAY ==
--- NOTE | ~2024-07-31 | XR_ITS ---
EXAMINATION: XR LUMBAR SPINE CLINICAL INFORMATION: Low back pain, unspecified M54.50. No known injury. COMPARISON: XR Lumbar spine 07/18/2022 TECHNIQUE: Three views of the lumbosacral spine. FINDINGS: 5 nonrib-bearing vertebral bodies. Mild leftward curvature. No evidence of acute fracture or spondylolisthesis. Moderate L4-5, mild L5-S1 disc degeneration, interval progression from previous. Facet degeneration in the lower lumbar spine. No acute findings in the visualized pelvis. Surgical clips in the right upper quadrant. XR/XR lumbar spine 2-3V IMPRESSION: Lumbar spondylosis, some interval progression as compared to previous.. Study is assigned/presented to me for interpretation on Sep 30, 2024 Electronically signed by: Henrik Gray MD 09/30/2024 10:58 AM CARLI ECHOLS
== END 2024-07-31 10:13 | disposition home or self-care (01) ==
LOC: HO.XRAY 10:12
PROVIDERS: PCP Internal Medicine; Visit Provider Internal Medicine
DX: E78.00 Pure hypercholesterolemia, unspecified (principal); E11.65 Type 2 diabetes mellitus with hyperglycemia; I10 Essential (primary) hypertension; E89.0 Postprocedural hypothyroidism; K21.9 Gastro-esophageal reflux disease without esophagitis; M47.816 Spondylosis without myelopathy or radiculopathy, lumbar region; E55.9 Vitamin D deficiency, unspecified; F33.9 Major depressive disorder, recurrent, unspecified; E66.3 Overweight; M54.50 Low back pain, unspecified; Z79.4 Long term (current) use of insulin; Z79.899 Other long term (current) drug therapy
CPT/HCPCS: 72100; 90471; 96127; 99212

== ENCOUNTER 2024-08-23 13:34 | Outpatient (AMB) | payer OTHER, SELFPAY ==
[2024-08-23 13:41] VITALS: BP 138/84; PULSE 66; O2SAT 98
--- NOTE | 2024-08-23 13:41 | MHC.OFFVIS ---
Vital Signs 08/23/24 13:41 Height 5 ft 1 in BP 138/84 Blood Pressure Location Rt brachial Position Sitting Pulse 66 Pulse Source Pulse Oximeter Pulse Oximetry (%) 98 Oxygen Delivery Method Room Air Intake Visit Reasons: 2 month follow up r/s from 04/24 Intake Note: Lashanda presents in office today for a scheduled 4 mos FUV, s/p double w/ BZ CC; Any changes or new sx since last visit? No new concerns per pt. Any labs or diagnostics since last visit? ?Labs done, no imaging. NO recent surgeries. Pharmacy verified? [facility]. Dining Room Captain Required: Yes Dining Room Captain Services: Dining Room Captain Present Dining Room Captain Name: Niki [id number] Information Interpreted: non-clinical & clinical Accompanied by: Self / Same As Patient Allergies Penicillins [PENICILLINS] Allergy (Unknown, Verified 08/23/24 13:42) RASH HPI HPI 2 month follow up r/s from 04/24: Details: LAST VISIT: Gastric ulcer Epigastric abdominal pain GERD without esophagitis Postprandial abdominal bloating Constipation Plan Patient will return for breathless in 2 weeks. Will stop PPI and start her on famotidine. Patient will stop famotidine 24 hours before the test and will return to the office NPO 1 hour before testing. Patient will start taking Dulcolax tablets as well as fiber supplement. If H pylori positive will treat empirically. Patient will return in 2 months to discuss prep. Message sent to surgical schedulers to book upper endoscopy and colonoscopy. Patient is on Jardiance and Trulicity. Patient is also taking lisinopril. Patient is agreeable to this plan and verbalizes understanding of instructions. She was given the opportunity to ask questions and all questions answered. ? Thank you for allowing me to participate in her care Orders Orders H Pylori Breath Test 02/20/24 K21.9 Medications New famotidine (Pepcid) 20 mg PO BID 30 tabs 0RF K29.70 bisacodyl (Dulcolax (bisacodyl)) 10 mg (2 x 5 mg) PO BEDTIME 60 tabs 4RF methylcellulose (laxative) (Citrucel) 500 mg PO DAILY 30 tabs 2RF K59.00 Discontinued sucralfate Discontinued Reason: Doctor's Order 1 g PO QIDACHS 30 days 120 tabs 2RF ENDOSCOPY AND COLONOSCOPY: EGD Findings:? Esophagus:? Normal esophageal mucosa was noted. The Z-line was at 36 cm. Cold forceps biopsies were taken from lower esophagus. Stomach:? Normal gastric mucosa. No erosions or ulcers noted. Retroflexion was performed in the cardia. Cold forceps biopsies were taken from the stomach as per Susi protocol. Duodenum:? Normal duodenal mucosa. Cold forceps biopsies were taken from the duodenal bulb and 2nd portion of the duodenum to rule out celiac sprue. Colonoscopy Procedure:? The patient was then turned for the colonoscopy. A digital rectal exam was performed which was normal.? A distal attachment cap was affixed to the tip of the scope and the colonoscope was then inserted through the anus and advanced through the colon and advanced to the cecum at 75 cm and terminal ileum.? Appendiceal orifice and ileocecal valve were identified. Mucosa was carefully examined under high definition white light as the instrument was slowly withdrawn in a retrograde panoramic fashion. Retroflexion was performed in rectum. The procedure was not difficult. The quality of the prep was BBPS: 3+2+3 = adequate Withdrawal time 9 minutes Limitations: No limitations Findings: Mucosa: Normal colon and terminal ileum mucosa. Protruding lesions: 1 sessile 2 mm polyp in cecum. Cold forceps polypectomy was performed. The polyp was completely removed and retrieved. Small internal hemorrhoids without stigmata of recent bleeding. Excavated lesions: Mild diverticulosis of left colon. Impression: 1. Normal esophagus (biopsy) 2. Normal stomach (biopsy) 3. Normal duodenum (biopsy) 4. 1 polyp removed 5. Normal colon and terminal ileum mucosa 6. Internal hemorrhoids 7. Diverticulosis Recommendations:?? Follow-up path results Avoid NSAIDs Repeat colonoscopy for CRC screening in 7-10 years. PATHOLOGY RESULTS Diagnosis A. Duodenum, biopsy: Duodenal mucosa with prominent lymphoid aggregates; otherwise within normal limits. B. Stomach, antrum greater curvature, biopsy: Antral-type mucosa with mild chronic inactive inflammation; no Helicobacter organisms seen. C. Stomach, antrum, lesser curvature, biopsy: Antral-type mucosa with mild chronic inactive inflammation; no Helicobacter organisms seen. D. Stomach, incisura, biopsy: Antral-type mucosa with mild chronic inactive inflammation; no Helicobacter organisms seen. E. Stomach, body greater curvature, biopsy: Oxyntic mucosa with moderate chronic, focally active, inflammation, partial atrophy and intestinal metaplasia; negative for dysplasia; no Helicobacter organisms seen. F. Stomach, body lesser curvature, biopsy: Oxyntic mucosa with moderate chronic, focally active, inflammation; no Helicobacter organisms seen. G. Esophagus, lower, biopsy: Squamous epithelium within normal limits; no inflammation seen. H. Cecum, polypectomy: Colonic mucosa with mild surface hyperplastic changes; multiple additional levels examined. I. Colon, sigmoid, biopsy: Colonic mucosa within normal limits. TODAY'S VISIT Patient is here today for follow-up and to discuss upper endoscopy and colonoscopy results. Patient denies any ill effects from the prep, anesthesia or procedure itself. Patient reports to be feeling fairly well after the procedure. Denies any dyspepsia, dysphagia or odynophagia. Denies any melena, hematochezia. Patient reports that she is compliant with omeprazole in the morning and famotidine at night time, however she reports that she still has occasional acid reflux. Patient reports occasional epigastric pain postprandially. Chronic inactive inflammation seen in her stomach as well as partial atrophy was seen and intestinal metaplasia without dysplasia. No H pylori found. We did H pylori breath test back in February and that was also negative. Colonoscopy showed 1 hyperplastic polyp. Patient otherwise reports that she has been doing well. Moving her bowels without any issues. 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 Mother HTN (hypertension) Brother No problems noted. Sister No problems noted. Sister No problems noted. Daughter No problems noted. Son No problems noted. Son No problems noted. Son No problems noted. Social History Household Members: Spouse Housing: Apartment Are you a primary residential caregiver to a significant other at home: No Do you presently have visiting nurse or other home services: No Alcohol intake: never Patient Tobacco Use Status: Never used Tobacco e-Cigarette/Vaping Use: Never Used Second Hand Smoke Exposure: Yes service: No Current occupational status: disabled Sexual orientation: Straight/Heterosexual Gender identity: Female Cognitive needs: No Hearing needs: No Vision needs: No Female Reproductive History Menstrual Age of Menarche: 13 Physical Exam Vital Signs: Last Vital Signs Pulse 66 08/23/24 13:41 BP 138/84 08/23/24 13:41 Pulse Ox 98 08/23/24 13:41 Oxygen Delivery Method Room Air 08/23/24 13:41 Assessment & Plan Assessment & Plan (1) Epigastric abdominal pain: Code(s): R10.13 - Epigastric pain Category: Medical (2) GERD without esophagitis: Code(s): K21.9 - Gastro-esophageal reflux disease without esophagitis Category: Medical (3) Status post colonoscopy: Code(s): Z98.890 - Other specified postprocedural states Plan Colonoscopy in 7-10 years, sooner if clinically necessary. Patient does not have any family history of CRC. Atrophic gastritis and intestinal metaplasia was seen without high-grade dysplasia. Screening as needed. Change of PPI to pantoprazole. Patient will start taking famotidine at bedtime. Patient will follow-up in the office in 3 months, sooner on as needed basis. She is agreeable to this plan and verbalizes understanding of instructions. She was given the opportunity to ask questions and all questions answered. Thank you for allowing me to participate in her care Medications: New pantoprazole take one tablet half an hour before breakfast 40 mg PO DAILY 30 tabs 3RF K21.9 - Gastro-esophageal reflux disease without esophagitis Changed From famotidine (Pepcid) 20 mg PO BID 90 days 180 tabs 0RF K29.70 - Gastritis, unspecified, without bleeding To famotidine (Pepcid) 20 mg PO BEDTIME 90 days 90 tabs 2RF K29.70 - Gastritis, unspecified, without bleeding Discontinued omeprazole Discontinued Reason: Doctor's Order 20 mg PO DAILY 90 days 90 tabs 3RF K21.9 - Gastro-esophageal reflux disease without esophagitis tizanidine Discontinued Reason: Patient no longer taking 4 mg PO Q8H 10 days PRN 30 tabs 3RF muscle spasms/low back pain Coding Level of Care Code Est Pt Level 4 (67715) Complex EM visit Add On G2211 Diagnoses Epigastric abdominal pain R10.13 GERD without esophagitis K21.9 Status post colonoscopy Z98.890 Time Spent (min) 35 Comment 20 minutes spent with patient and additional 15 minutes spent reviewing her records
== END 2024-08-23 14:35 | disposition home or self-care (01) ==
PROVIDERS: PCP Internal Medicine; Visit Provider Nurse Practitioner Family
DX: R10.13 Epigastric pain (principal); K21.9 Gastro-esophageal reflux disease without esophagitis; Z98.890 Other specified postprocedural states
CPT/HCPCS: 99214; G2211

== ENCOUNTER → 2024-08-23 13:34 | Outpatient (BNVA) | payer OTHER, SELFPAY | PROVIDERS: PCP Internal Medicine; Visit Provider Nurse Practitioner Family | DX: K21.9 Gastro-esophageal reflux disease without esophagitis (principal); R10.13 Epigastric pain; K29.70 Gastritis, unspecified, without bleeding; Z98.890 Other specified postprocedural states | CPT/HCPCS: 99212 ==

== ENCOUNTER 2024-09-05 10:36 | Outpatient (AMB) | payer OTHER, SELFPAY ==
--- NOTE | 2024-09-05 10:41 | MHC.OFFVIS ---
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 She is doing well with no coat check attendant concerns. Currently sexually active. Denies any vaginal dryness or irritation. STI testing offered; she accepts. Attempting to eat a healthy diet with calcium and vitamin D and stays active with exercise. History of hysterectomy due to heavy menstrual bleeding Last mammogram; 2023. Colonoscopy is UTD. Denies any family history of breast, ovarian or colon cancer. 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 Mother HTN (hypertension) Brother No problems noted. Sister No problems noted. Sister No problems noted. Daughter No problems noted. Son No problems noted. Son No problems noted. Son No problems noted. Social History Household Members: Spouse Housing: Apartment Are you a primary laboratory animal caretaker to a significant other at home: No Do you presently have visiting nurse or other home services: No Alcohol intake: never Patient Tobacco Use Status: Never used Tobacco e-Cigarette/Vaping Use: Never Used Second Hand Smoke Exposure: Yes service: No Current occupational status: disabled Sexual orientation: Straight/Heterosexual Gender identity: Female Cognitive needs: No Hearing needs: No Vision needs: No Female Reproductive History Menstrual Age of Menarche: 13 Menopause type: surgical Total pregnancies: 6 Full term: 5 Number of Living Children: 5 Ab spontaneous: 1 Date of Mammogram: 05/01/24 (Birad 1) Review of Systems Const All systems reviewed & are unremarkable except as noted in HPI and below Reports as per HPI Eyes Reports no additional complaints ENT Reports no additional complaints Card Reports no additional complaints Resp Reports no additional complaints GI Reports as per HPI and Reports no additional complaints Reports as per HPI Musc Reports no additional complaints Skin/Breast Reports as per HPI Neuro Reports no additional complaints Psych Reports no additional complaints Endo Reports no additional complaints John/Lymph Reports no additional complaints Aller/Immun Reports no additional complaints Physical Exam Vital Signs: Last Vital Signs BP 104/66 09/05/24 10:42 BMI result Body Mass Index 26.6 Const General: cooperative, healthy appearing, no acute distress, well developed and alert Orientation/consciousness: patient oriented x3 HEENT Head: Yes normal to inspection Eyes General: appearance normal, both eyes and all related structures Neck Neck: Yes normal visual inspection Thyroid: Thyroid normal Chest Chest palpation & inspection: normal inspection of the chest and other (no puckering, dimpling, peau de orange, retraction, discharge, masses) Breast/axilla inspection: normal inspection of the breasts Breast/axilla palpation: normal palpation of the breasts Resp Effort & Inspection: normal respiratory effort GI Inspection: Yes normal to inspection Palpation (GI): Soft to palpation Rectal Exam - Female: deferred General: Yes bladder normal to palpation External Female Exam: normal external appearance and normal appearance of the urethra Speculum Exam - Vagina: normal appearance of the vagina, normal palpation and normal vaginal discharge Speculum Exam - Cervix: Cervix absent (Vaginal cuff no lesions or nodules) Bimanual exam- vagina & uterus: normal bimanual exam, normal palpation and bladder normal to palpation Bimanual Exam- Adnexa, other: no masses Skin General skin exam: no rashes or lesions noted Rashes: no rashes Neuro General: patient oriented x3 Cognition (Neuro): normal cognition Extrem General: Yes normal to inspection Psych Attitude: cooperative Thought process: Normal thought process present Assessment & Plan Assessment & Plan (1) Well woman exam with routine gynecological exam: Code(s): Z01.419 - Encounter for gynecological examination (general) (routine) without abnormal findings Category: Medical Plan Discussed: Current recommendations for pap smears per ASCCP guidelines. Breast awareness, periodic self breast exams and yearly mammogram. Maintain a healthy lifestyle, well balanced diet including Calcium 1,200 mg and Vitamin D 600 IU daily, and routine exercise. Replens or vaginal lubricant if any dryness. Patient verbalizes understanding and agrees to the plan of care. She was given opportunity to ask questions and all questions were answered to the best of my ability. RTO in 1 year for annual coat check attendant exam. This note is constructed using voice recognition software. While every effort has been made to ensure accuracy, ironworker helper shop errors may have been included. Coding Level of Care Code Est Pt Prev Care 40-64y(30437) Diagnoses Well woman exam with routine gynecological exam Z01.419
[2024-09-05 10:42] VITALS: BP 104/66; BMI 26.6
== END 2024-09-05 11:00 | disposition home or self-care (01) ==
LOC: HO.HWS 10:36
PROVIDERS: PCP Internal Medicine; Visit Provider Advanced Practice Midwife
DX: Z01.419 Encounter for gynecological examination (general) (routine) without abnormal findings (principal)
CPT/HCPCS: 99396

== ENCOUNTER → 2024-09-05 10:36 | Outpatient (BNVA) | payer OTHER, SELFPAY | PROVIDERS: PCP Internal Medicine; Visit Provider Advanced Practice Midwife | DX: Z01.419 Encounter for gynecological examination (general) (routine) without abnormal findings (principal) | CPT/HCPCS: 99396; 99459 ==

== ENCOUNTER 2024-11-18 10:48 | Outpatient (AMB) | payer OTHER, SELFPAY ==
--- NOTE | 2024-11-18 10:48 | MHC.OFFVIS ---
Vital Signs 11/18/24 10:49 Height 5 ft 1 in Weight 138 lb 14.259 oz BMI 26.2 BP 110/76 Blood Pressure Location Rt brachial Position Sitting Pulse 68 Pulse Source Pulse Oximeter Pulse Oximetry (%) 98 Oxygen Delivery Method Room Air Intake Visit Reasons: 3 mo f/u Intake Note: ESTABLISHED PATIENT for mgmt of GERD w/ abd pain Chief Complaint; Pt denies any GI concerns at this time and reports that her reflux sx have been well controlled since starting the new Rx. Assistant Professor Of Physics Required: Yes Assistant Professor Of Physics Services: Assistant Professor Of Physics Present Assistant Professor Of Physics Name: GI LM + Antonio [id number] Information Interpreted: non-clinical & clinical Accompanied by: Self / Same As Patient Allergies Penicillins [PENICILLINS] Allergy (Unknown, Verified 11/18/24 10:49) RASH HPI HPI 3 mo f/u: Details: LAST VISIT Epigastric abdominal pain GERD without esophagitis Status post colonoscopy Plan Colonoscopy in 7-10 years, sooner if clinically necessary. Patient does not have any family history of CRC. Atrophic gastritis and intestinal metaplasia was seen without high-grade dysplasia. Screening as needed. Change of PPI to pantoprazole. Patient will start taking famotidine at bedtime. Patient will follow-up in the office in 3 months, sooner on as needed basis. She is agreeable to this plan and verbalizes understanding of instructions. She was given the opportunity to ask questions and all questions answered. ? Thank you for allowing me to participate in her care Medications New pantoprazole take one tablet half an hour before breakfast 40 mg PO DAILY 30 tabs 3RF K21.9 Changed Changed From famotidine (Pepcid) 20 mg PO BID 90 days 180 tabs 0RF K29.70 Changed To famotidine (Pepcid) 20 mg PO BEDTIME 90 days 90 tabs 2RF K29.70 Discontinued omeprazole Discontinued Reason: Doctor's Order 20 mg PO DAILY 90 days 90 tabs 3RF K21.9 tizanidine Discontinued Reason: Patient no longer taking 4 mg PO Q8H 10 days PRN 30 tabs 3RF muscle spasms/low back pain TODAY'S VISIT Patient is here today for follow-up. Patient reports that since she started taking pantoprazole in the morning she has been doing much better. Continues with her famotidine at bedtime. Denies any dyspepsia, dysphagia or odynophagia. Occasional postprandial abdominal bloating and burning in the middle of her abdomen. Patient can not pinpoint what food causes it. Patient reports that it does not happen all the time. Patient reports that she is moving her bowels well without any issues. Denies melena, hematochezia, unintentional weight loss or ribbon like stools. Patient reports occasional abdominal cramping when bloated. 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 Mother HTN (hypertension) Brother No problems noted. Sister No problems noted. Sister No problems noted. Daughter No problems noted. Son No problems noted. Son No problems noted. Son No problems noted. Social History Household Members: Spouse Housing: Apartment Are you a primary director of career resources to a significant other at home: No Do you presently have visiting nurse or other home services: No Alcohol intake: never Patient Tobacco Use Status: Never used Tobacco e-Cigarette/Vaping Use: Never Used Second Hand Smoke Exposure: Yes service: No Current occupational status: disabled Sexual orientation: Straight/Heterosexual Gender identity: Female Cognitive needs: No Hearing needs: No Vision needs: No Female Reproductive History Menstrual Age of Menarche: 13 Review of Systems Const Denies weight gain and Denies weight loss ENT Reports no additional complaints, Denies dysphagia and Denies odynophagia Card Reports no additional complaints Resp Reports no additional complaints GI Denies abdominal pain, Denies belching, Denies melena, Reports bloating, Denies change in bowel habits, Denies constipation, Reports GI cramping (Occasional), Denies dysphagia, Denies excessive flatus, Denies dyspepsia, Denies heartburn, Denies diarrhea, Denies loose stools, Denies nausea, Denies odynophagia and Denies vomiting Reports no additional complaints Musc Reports no additional complaints Neuro Reports no additional complaints Psych Reports no additional complaints Endo Reports no additional complaints Physical Exam Const General: healthy appearing, no acute distress and well developed Nutritional Appearance: well nourished Orientation/consciousness: patient oriented x3 Resp Effort & Inspection: normal respiratory effort, able to speak in complete sentences, no tracheal deviation and symmetric chest movement Auscultation: clear to auscultation bilaterally Cardio Rate: regular rate GI Inspection: Yes normal to inspection and No distended Palpation (GI): Soft to palpation, not firm, nontender and No hepatosplenomegaly present Auscultation: normal bowel sounds General: Yes no CVA tenderness Back/Spine/Pelvis Back: no CVA tenderness Skin General skin exam: elasticity normal, turgor normal and dry skin Neuro General: patient oriented x3 Psych Appearance: grossly normal Mental Status: mental status grossly normal Assessment & Plan Assessment & Plan (1) Epigastric abdominal pain: Code(s): R10.13 - Epigastric pain Category: Medical (2) GERD without esophagitis: Code(s): K21.9 - Gastro-esophageal reflux disease without esophagitis Category: Medical (3) Postprandial abdominal bloating: Code(s): R14.0 - Abdominal distension (gaseous) Plan Continue pantoprazole in the morning and famotidine at bedtime. Avoid dietary triggers and late night snacking. Staying upright for minimum 3 hours after meals discussed with patient. Patient reports postprandial abdominal bloating. Discussed with patient low FODMAP diet. List of food recommended as well as list of food to avoid given to patient in German. Patient will follow-up in 6 months. She will call our office if she will have any GI concerning symptoms. Patient is agreeable to this plan and verbalizes understanding of instructions. She was given the opportunity to ask questions and all questions answered. Thank you for allowing me to participate in her care Medications: Refilled famotidine (Pepcid) 20 mg PO BEDTIME 90 days 90 tabs 2RF K29.70 - Gastritis, unspecified, without bleeding pantoprazole take one tablet half an hour before breakfast 40 mg PO DAILY 90 tabs 3RF K21.9 - Gastro-esophageal reflux disease without esophagitis Coding Level of Care Code Est Pt Level 3 (99219) Diagnoses Epigastric abdominal pain R10.13 GERD without esophagitis K21.9 Postprandial abdominal bloating R14.0 Time Spent (min) 25 Comment 15 minutes spent with patient and additional 10 minutes spent reviewing her records
[2024-11-18 10:49] VITALS: BP 110/76; PULSE 68; O2SAT 98; BMI 26.2
--- OUTSIDE RECORDS SUMMARY | 2024-11-18 12:43 | XMS_ITS | Clinical Summary ---
Author Organization [facility] ity Address [address] [place] [address] Care Team Providers Care Arboriculture Instructor Name Role Phone Unavailable Primary Care Provider Unavailabl e Social History Tobacco Use Types Packs/Day Years Used Date Smoking Tobacco: Never Assessed Comments Unknown Sex and Gender Information Value Date Recorded Sex Assigned at Not on file Legal Sex Female 1:55 PM EST Gender Identity Not on file Sexual Orientation Not on file Plan of Treatment Health Maintenance Due Date Last Done Comments Breast Cancer Screening 1965 DTaP,Tdap,and Td Vaccines (1 - Tdap) 01/17/1984 Hepatitis B Vaccines (1 of 3 - 19+ 3-dose series) 01/17/1984 Cervical Cancer Screening: P ap Smear 1986 Pneumococcal Vaccine: 50+ Ye ars (1 of 1 - PCV) 2015 Zoster Vaccines (1 of 2) 2015 Colorectal Cancer Screening: Colonoscopy 10/17/2023 Depression Screening 10/17/2023 HIV Screening 10/17/2023 Hepatitis C Screening 10/17/2023 Social Influencers of Health Screening 10/17/2023 COVID-19 Vaccine ( - 2023-2 5 season) 2024 Influenza Vaccine (#1) 2024 RSV Immunization Patients 60 + Years Old (1 - 1-dose 75+ series) 01/17/2040 HIB Vaccines Aged Out No longer eligi ble based on patient's age to complete this topic HPV Vaccines Aged Out No longer eligi ble based on patient's age to complete this topic Hepatitis A Vaccines Aged Out No long er eligible based on patient's age to complete this topic IPV Vaccines Aged Out No longer eligi ble based on patient's age to complete this topic MMR Vaccines Aged Out No longer eligi ble based on patient's age to complete this topic Meningococcal ACWY Vaccine Aged Out N o longer eligible based on patient's age to complete this topic Meningococcal B Vacine Aged Out No lo nger eligible based on patient's age to complete this topic Pneumococcal Vaccine: Pediat rics (0 to 5 Years) and At-Risk Patients (6 to 64 Years) Aged Out No longer eligible b ased on patient's age to complete this topic RSV Immunization Patients Un sandra 20 months Aged Out No longer eligible b ased on patient's age to complete this topic Varicella Vaccines Aged Out No longer eligible based on patient's age to complete this topic
== END 2024-11-18 11:08 | disposition home or self-care (01) ==
PROVIDERS: PCP Internal Medicine; Visit Provider Nurse Practitioner Family
DX: R10.13 Epigastric pain (principal); K21.9 Gastro-esophageal reflux disease without esophagitis; R14.0 Abdominal distension (gaseous)
CPT/HCPCS: 99213

== ENCOUNTER 2024-11-18 10:48 | Outpatient (REF) | payer OTHER, SELFPAY ==
[2024-11-18 11:40] LABS: MANUAL DIFF FLAG NO
[2024-11-18 11:55] LABS: Basophils Absolute Auto 0.1 X10*3/uL (0.0-0.2); Basophils Percent Auto 0.9 % (0-2); Eosinophils Absolute Auto 0.4 X10*3/uL (0.0-0.4); Eosinophils Percent Auto 7.8 % (0-4); Hematocrit 38.4 % (37.0-47.0); Hemoglobin 12.8 g/dl (12.0-16.0); Imm Gran Abs Auto 0.02 X10*3/uL (0.00-0.03); Imm Gran Pct Auto 0.4 % (0.0-0.4); Lymphocytes Absolute Auto 1.5 X10*3/uL (1.2-4.9); Lymphocytes Percent Auto 27.3 % (20-40); Mean Corpuscular HGB Conc 33.3 g/dl (31.0-35.0); Mean Corpuscular Hemoglobin 26.4 pg (27.0-33.0); Mean Corpuscular Volume 79.3 fL (80.0-98.0); Mean Platelet Volume 10.4 fL (9.4-12.3); Monocytes Absolute Auto 0.4 X10*3/uL (0.1-1.2); Monocytes Percent Auto 6.5 % (2-11); Neutrophils Absolute Auto 3.2 x10*3/uL (2.0-8.3); Neutrophils Percent Auto 57.1 % (45-73); Platelet Count 226 X10*3/uL (160-400); Red Blood Count 4.84 X10*6/uL (4.20-5.50); Red Cell Distribution Width 14.3 % (11.0-16.0); White Blood Count 5.5 X10*3/uL (4.8-10.8)
[2024-11-18 11:59] LABS: Appearance Urine Cloudy; Color Urine Yellow; Glucose Urine UA Negative (Negative); Leukocyte Esterase Urine Small (1+) (Negative); Nitrite Urine Positive (Negative); Specific Gravity - Urine 1.015 (1.005-1.025); UMIC TRIGGER UACC YES; Urine Blood Negative (Negative); Urine Ketones Negative (Negative); Urine Protein Negative (Neg-Trace)
[2024-11-18 12:02] LABS: Bacteria Urine 4+ (None Seen); Hyaline Casts Urine 0-2 /LPF (0-2); RBC Urine 0-2 /HPF (0-2); Squamous Epithelial Cell Urine 0-2 /HPF (0-2); UACC Culture Trigger YES
[2024-11-18 12:10] LABS: Estimated Average Glucose 134 mg/dL; Hemoglobin A1C 152.3937 umol/L; Hemoglobin A1c % 6.3 % (<6.0); Total Hemoglobin (HGBA1C) 3383.5585 umol/L
[2024-11-18 12:37] LABS: Cholesterol 138 mg/dL (<200); HDL Cholesterol 45 mg/dL (>40); LDL Cholesterol Calculated 76 mg/dL (<100); Triglycerides 85 mg/dL (<150)
[2024-11-18 12:54] LABS: Free T4 (Free Thyroxine) 1.01 ng/dL (0.71-1.85); Thyroid Stimulating Hormone 0.76 uIU/mL (0.32-4.0)
--- OUTSIDE RECORDS SUMMARY | 2024-11-18 13:23 | XMS_ITS | Clinical Summary ---
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
== END 2024-11-18 10:49 | disposition home or self-care (01) ==
LOC: HO.LAB 10:48
PROVIDERS: PCP Internal Medicine; Referring Provider Internal Medicine; Visit Provider Nurse Practitioner Family
DX: R10.13 Epigastric pain (principal); K21.9 Gastro-esophageal reflux disease without esophagitis; R14.0 Abdominal distension (gaseous); E78.00 Pure hypercholesterolemia, unspecified; D64.9 Anemia, unspecified; E11.9 Type 2 diabetes mellitus without complications; E03.9 Hypothyroidism, unspecified
CPT/HCPCS: 36415; 80061; 81001; 81003; 83036; 84439; 84443; 85025; 87086; 87088; 87186; 99212

== ENCOUNTER 2025-02-03 07:17 | Outpatient (REF) | payer OTHER, SELFPAY ==
[2025-02-03 07:27] LABS: MANUAL DIFF FLAG NO
[2025-02-03 08:02] LABS: Basophils Absolute Auto 0.1 X10*3/uL (0.0-0.2); Basophils Percent Auto 0.9 % (0-2); Eosinophils Absolute Auto 0.4 X10*3/uL (0.0-0.4); Eosinophils Percent Auto 7.7 % (0-4); Hematocrit 39.7 % (37.0-47.0); Hemoglobin 13.3 g/dl (12.0-16.0); Imm Gran Abs Auto 0.02 X10*3/uL (0.00-0.03); Imm Gran Pct Auto 0.4 % (0.0-0.4); Lymphocytes Absolute Auto 1.2 X10*3/uL (1.2-4.9); Lymphocytes Percent Auto 23.2 % (20-40); Mean Corpuscular HGB Conc 33.5 g/dl (31.0-35.0); Mean Corpuscular Volume 80.7 fL (80.0-98.0); Mean Platelet Volume 10.8 fL (9.4-12.3); Monocytes Absolute Auto 0.4 X10*3/uL (0.1-1.2); Neutrophils Absolute Auto 3.2 x10*3/uL (2.0-8.3); Neutrophils Percent Auto 60.8 % (45-73); Platelet Count 280 X10*3/uL (160-400); Red Blood Count 4.92 X10*6/uL (4.20-5.50); Red Cell Distribution Width 13.4 % (11.0-16.0); White Blood Count 5.3 X10*3/uL (4.8-10.8)
[2025-02-03 08:10] LABS: Estimated Average Glucose 137 mg/dL; Hemoglobin A1C 163.7724 umol/L; Hemoglobin A1c % 6.4 % (<6.0); Total Hemoglobin (HGBA1C) 3531.9435 umol/L
[2025-02-03 08:59] LABS: Alanine Aminotransferase 28 U/L (0-31); Albumin Level 4.2 g/dL (3.5-5.0); Alkaline Phosphatase 89 U/L (39-117); Anion Gap 11 (12-20); Aspartate Amino Transferase 27 U/L (5-31); Bilirubin Total 0.4 mg/dL (0.0-1.0); Blood Urea Nitrogen 15 mg/dL (9-16); Calcium 9.1 mg/dL (8.4-10.2); Carbon Dioxide 27 mmol/L (22-29); Chloride 108 mmol/L (96-108); Cholesterol 146 mg/dL (<200); Estimated Glomerular Filt Rate > 60; Glucose Fasting 134 mg/dL (60-99); HDL Cholesterol 45 mg/dL (>40); LDL Cholesterol Calculated 83 mg/dL (<100); Potassium 4.4 mmol/L (3.3-5.1); Sodium 142 mmol/L (135-145); Total Protein 7.3 g/dL (6.5-8.0); Triglycerides 94 mg/dL (<150)
[2025-02-03 09:18] LABS: Free T4 (Free Thyroxine) 0.86 ng/dL (0.71-1.85); Vitamin D 25-OH Total 43.4 ng/mL (>30)
== END 2025-02-03 07:18 | disposition home or self-care (01) ==
LOC: HO.LAB 07:17
PROVIDERS: Visit Provider Internal Medicine
DX: E11.9 Type 2 diabetes mellitus without complications (principal); E03.9 Hypothyroidism, unspecified; D64.9 Anemia, unspecified; E78.00 Pure hypercholesterolemia, unspecified; E55.9 Vitamin D deficiency, unspecified
CPT/HCPCS: 36415; 80053; 80061; 82306; 83036; 84439; 84443; 85025

== ENCOUNTER 2025-02-06 10:05 | Outpatient (AMB) | payer OTHER, SELFPAY ==
[2025-02-06 10:17] VITALS: BP 106/68; PULSE 67; RESP 16; TEMP 37.2; O2SAT 97; BMI 26.6
--- NOTE | 2025-02-06 10:17 | A.OFFPC_ITS ---
Vital Signs 02/06/25 10:17 Height 5 ft 1 in Weight 141 lb BMI 26.6 BP 106/68 Blood Pressure Location Lt brachial Position Sitting Respiration 16 Pulse 67 Pulse Source Pulse Oximeter Temp 98.9 F Temp Source Oral Pulse Oximetry (%) 97 Oxygen Delivery Method Room Air Intake Visit Reasons: DM, hyperlipidemia, HTN, lumbar DDD Fire Prevention Inspector Required: Yes Fire Prevention Inspector Language: Senior Accounting Analyst Name: Used tablet- [id number] Moris Information Interpreted: non-clinical & clinical Alteration Tailor: Not Required per policy Accompanied by: Self / Same As Patient Allergies Penicillins [PENICILLINS] Allergy (Unknown, Verified 02/06/25 11:01) RASH Medication List - Last Reconciled 02/10/25 by ANTONY Arredondo alcohol swabs pad topical TID aspirin 81 mg PO DAILY atorvastatin 10 mg PO DAILY 30 days blood sugar diagnostic 3 times a day blood sugar diagnostic (FreeStyle Lite Strips) As directed three times a day blood sugar diagnostic (FreeStyle Lite Strips) As directed three times a day cholecalciferol (vitamin D3) 25 mcg PO DAILY 90 days citalopram 20 mg PO DAILY dulaglutide (Trulicity) 3 mg (0.5 mL) subcut QWEEK 28 days FreeStyle Lancets (lancets) USE DIRECTED 3X/DAY NS insulin syringe-needle U-100 As directed once daily Lantus Solostar U-100 Insulin (insulin glargine) 16 units (0.16 mL) subcut DAILY 90 days NS levothyroxine 75 mcg PO DAILY 90 days lisinopril 2.5 mg PO DAILY methylcellulose (laxative) (Citrucel) 500 mg PO DAILY pantoprazole 40 mg PO DAILY pen needle, diabetic daily tizanidine 4 mg PO Q8H PRN 14 days trazodone 100 mg (2 x 50 mg) PO BEDTIME PRN Tobacco use date assessed: 02/06/25 Dental Screening Dental Screen Date: 02/06/25 Did you have a dental visit in the last 12 months?: Yes Did you have a dental problem in the last 6 months where you did not have access to dental care?: No Was dental information given to patient?: Patient has dentist HPI DM, hyperlipidemia, HTN, lumbar DDD HPI Details The patient is a 60-year-old female presenting with a follow-up visit for multiple chronic conditions and new symptoms, including diabetes medication refill, abdominal pain, and vision changes. She has experienced abdominal pain, localized around the ovarian region, described as a bursting sensation, and has also recently experienced shortness of breath. Her blood sugar levels on self- monitoring range above 140 mg/dL. She has a medical history significant for chronic back pain related to arthritis, with previous imaging showing mild degenerative changes, and is managed conservatively with Tylenol due to her concurrent diagnosis of GERD. Tizanidine was prescribed as a muscle relaxant for a short course in the past. She has also been experiencing blurry vision that results in headaches, raising concerns over her visual health, for which she requested an ophthalmologic evaluation. Her current diabetic management includes daily insulin and a weekly GLP-1 agonist with recent laboratory assessments showing a well-managed hemoglobin A1c at 6.4%. 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 Mother HTN (hypertension) Brother No problems noted. Sister No problems noted. Sister No problems noted. Daughter No problems noted. Son No problems noted. Son No problems noted. Son No problems noted. Social History Household Members: Spouse Housing: Apartment Are you a primary hospice patient care secretary to a significant other at home: No Do you presently have visiting nurse or other home services: No Alcohol intake: never Patient Tobacco Use Status: Never used Tobacco e-Cigarette/Vaping Use: Never Used Second Hand Smoke Exposure: Yes service: No Current occupational status: disabled Sexual orientation: Straight/Heterosexual Gender identity: Female Cognitive needs: No Hearing needs: No Vision needs: No Female Reproductive History Menstrual Age of Menarche: 13 Questionnaire PHQ-9 Over the last 2 weeks, how often have you been bothered by any of the following problems? 1. Little interest or pleasure in doing things: more than half the days 2. Feeling down, depressed, or hopeless: not at all 3. Trouble falling or staying asleep, or sleeping too much: more than half the days 4. Feeling tired or having little energy: more than half the days 5. Poor appetite or overeating: several days 6. Feeling bad about yourself - or that you are a failure or have let yourself or your family down: more than half the days 7. Trouble concentrating on things, such as reading the newspaper or watching television: not at all 8. Moving or speaking so slowly that other people could have noticed. Or the opposite - being so fidgety or restless that you have been moving around a lot more than usual: not at all 9. Thoughts that you would be better off or of hurting yourself in some way: not at all Total score: 9 Depression Screening Interpretation: Positive Depression Screening Done: Yes 92038 - PHQ-9 Billing: Yes Source: Developed by Drs. Slava Velez, Tere Moreno, Neel Chris and colleagues, with an educational arlette from [employer]. Thrive Questionnaire Date Thrive assessed: 02/06/25 I am a: Patient What is your living situation today?: I have a steady place to live Within the past 12 months, did the food you bought not last and you didn't have the money to get more?: Never true Within the past 12 months, did you worry whether your food would run out before you got money to buy more?: Never true Do you have trouble paying for medicines?: No Do you have trouble getting transportation to medical appointments?: No Do you have trouble paying your heating and electricity bill?: No Do you have trouble taking care of your child, family member or friend?: No Do you have trouble with day-to-day activities such as bathing, preparing meals, shopping, managing finances, etc.?: No Are you currently unemployed and looking for a job?: Yes Are you interested in more education?: Yes Please select the resources that you would like help with: None Currently or been in a relationship where the following occur: No concerns reported THRIVE Score: 0 AUDIT C Alcohol Use Questionnaire (AUDIT-C) 1. How often do you have a drink containing alcohol?: Never Total Score: 0 Score Reviewed/Action Taken: No JONN-7 AMB Questionnaire JONN-7 Date JONN - 7 assessed: 02/06/25 Feeling nervous, anxious, or on edge: 0 = Not at all Not being able to stop or control worryin = Not at all Worrying too much about different things: 0 = Not at all Trouble relaxin = Not at all Being so restless that it is hard to sit still: 0 = Not at all Becoming easily annoyed or irritable: 0 = Not at all Feeling afraid as if something awful might happen: 0 = Not at all Total JONN-7 score (0-4 normal; 5-9 mild; 10-14 moderate; 15-21 severe): 0 Source: Developed by Drs. Slava Velez, Tere Moreno, Neel Chris and colleagues, with an educational arlette from [employer]. JONN-7 Assessment Billing JONN-7 Assessment Tool: JONN-7 Assessment 19364 Review of Systems Const Reports headache(s) (Intermittent with blurry vision) Eyes Reports blurry vision and Denies loss of vision ENT Denies vertigo, Denies dizziness, Reports headache(s) (Intermittent with blurry vision) and Denies sore throat Card Denies chest pain, Denies leg edema, Denies lightheadedness and Reports dyspnea on exertion Resp Denies cough, Denies hemoptysis, Reports dyspnea on exertion and Denies wheezing GI Reports abdominal pain (bilateral lower quadrants), Denies melena, Denies constipation, Denies diarrhea and Denies vomiting Denies urinary frequency, Denies dysuria and Denies urinary urgency Musc Reports back pain (chronic back pain), Denies arthralgias, Denies joint swelling, Denies numbness and Denies tingling Neuro Denies Abnormal speech present, Denies behavioral changes, Denies vertigo, Denies dizziness, Reports headache(s) (Intermittent with blurry vision), Denies loss of vision, Denies memory loss, Denies numbness and Denies tingling Psych Denies anxiety, Denies behavioral changes, Denies depression, Denies memory loss and Denies panic attacks John/Lymph Denies easy bleeding and Denies easy bruising Aller/Immun Denies wheezing Physical exam (Primary Care) Vital Signs: Last Vital Signs Temp 98.9 F 02/06/25 10:17 Pulse 67 02/06/25 10:17 Resp 16 02/06/25 10:17 BP 106/68 02/06/25 10:17 Pulse Ox 97 02/06/25 10:17 Oxygen Delivery Method Room Air 02/06/25 10:17 BMI result Body Mass Index 26.6 Tobacco/Smoking Status: Tobacco use Status Tobacco use date assessed 02/06/25 02/06/25 10:21 Patient Tobacco Use Status Never used Tobacco 02/06/25 10:18 e-Cigarette/Vaping Use Never Used 02/06/25 10:18 PHQ-9: PHQ-9 Score PHQ-9: Total score 9 02/10/25 18:46 Depression Screening Interpretation: Positive Thrive Assessment: Date of Thrive Assessment Date Thrive assessed 02/06/25 02/06/25 10:21 Currently or been in a relationship where the following occur: No concerns reported Const General: healthy appearing, no acute distress, alert and awake Nutritional Appearance: well nourished Orientation/consciousness: oriented to person, oriented to place and oriented to time HENMT Ears: TM's normal bilaterally General nose exam: Normal nasal mucous membranes and turbinates present Eyes Conjunctivae: conjunctivae normal Sclerae: sclerae normal Pupils: Equal, round and reactive pupils present Neck Neck: Yes no lymphadenopathy and Yes no JVD Thyroid: Thyroid normal Carotids: no bruits Resp Effort & Inspection: normal respiratory effort and not tachypneic Auscultation: no crackles, no rales, no rhonchi and no wheezes Cardio Rate: regular rate Rhythm: regular rhythm Heart sounds: no murmurs and normal S1 and S2 GI Palpation (GI): Soft to palpation, Tenderness to palpation present (GI) in the LLQ and in the RLQ, no hepatomegaly and no splenomegaly Auscultation: normal bowel sounds General: Yes no CVA tenderness Back/Spine/Pelvis Back: no CVA tenderness Skin General skin exam: no rashes or lesions noted and dry skin Neuro General: oriented to person, oriented to place and oriented to time Cranial nerves: Yes Equal, round and reactive pupils present Speech: No Abnormal speech present Gait exam (Neuro): Normal gait present Motor exam (neuro): no tremor noted Extrem Right upper extremity: full ROM Left upper extremity: full ROM Right lower extremity: full ROM; no edema Left lower extremity: full ROM; no edema Psych Mental Status: mental status grossly normal Speech and movement: Normal speech and movement present Affect: normal affect Attitude: cooperative Thought process: Normal thought process present Results Reviewed Results Reviewed: Laboratory Tests 02/03/25 07:24 WBC 5.3 RBC 4.92 Hgb 13.3 Hct 39.7 MCV 80.7 MCH 27.0 MCHC 33.5 RDW 13.4 Plt Count 280 MPV 10.8 Sodium 142 Potassium 4.4 Chloride 108 Carbon Dioxide 27 Anion Gap 11 L BUN 15 Creatinine 0.71 Estimated GFR > 60 Fasting Glucose 134 H Hemoglobin A1c % 6.4 H Calcium 9.1 Total Bilirubin 0.4 AST 27 ALT 28 Alkaline Phosphatase 89 Total Protein 7.3 Albumin 4.2 Triglycerides 94 Cholesterol 146 LDL Cholesterol, Calc 83 HDL Cholesterol 45 25-OH Vitamin D Total 43.4 TSH 2.50 Free T4 0.86 Coding Level of Care Code Est Pt Level 4 (76278) Diagnoses Blurry vision H53.8 Diffuse abdominal pain R10.84 Acute bilateral low back pain with bilateral sciatica M54.42; M54.41 Back pain laterality: bilateral Chronicity: acute Sciatica laterality: bilateral sciatica Sciatica presence: with sciatica Overweight (BMI 25.0-29.9) E66.3 Vitamin D deficiency E55.9 Benign essential hypertension I10 Type 2 diabetes mellitus with hyperglycemia, with long-term current use of insulin E11.65; Z79.4 Diabetes mellitus complication status: with hyperglycemia Diabetes mellitus nursing home insulin use: with extermination supervisor use extermination supervisor (current) use of insulin Z79.4 Postablative hypothyroidism E89.0 Hypothyroidism type: postablative Episode of recurrent major depressive disorder, unspecified depression episode severity F33.9 Active/Remission status: currently active Major depression episode severity: unspecified Additional Codes JONN-7 Assessment Billing - JONN-7 Assessment Tool: JONN-7 Assessment 17964 ([id number]) PHQ-9 - 54141 - PHQ-9 Billing: Yes ([id number]) Time Spent (min) 42 Assessment & Plan Assessment & Plan (1) Blurry vision: Code(s): H53.8 - Other visual disturbances Category: Medical Plan: Ophthalmology referral placed (2) Diffuse abdominal pain: Code(s): R10.84 - Generalized abdominal pain Category: Medical Plan: Urgent abdominal ultrasound ordered (3) Low back pain: Code(s): M54.50 - Low back pain, unspecified Category: Medical Qualifiers: Back pain laterality: bilateral Chronicity: acute Sciatica laterality: bilateral sciatica Sciatica presence: with sciatica Qualified Code(s): M54.42 - Lumbago with sciatica, left side; M54.41 - Lumbago with sciatica, right side Plan: Chronic back pain Continue Tylenol OTC and tizanidine 4 mg q.8 hours p.r.n. (4) Overweight (BMI 25.0-29.9): Code(s): E66.3 - Overweight Category: Medical Plan: Reinforced low-cholesterol diet and activity as tolerated (5) Vitamin D deficiency: Code(s): E55.9 - Vitamin D deficiency, unspecified Category: Medical Plan: Continue vitamin D3 25 mcg daily (6) Benign essential hypertension: Code(s): I10 - Essential (primary) hypertension Category: Medical Plan: Reinforced low-salt diet Continue lisinopril 2.5 mg daily (7) DM2 (diabetes mellitus, type 2): Code(s): E11.9 - Type 2 diabetes mellitus without complications Category: Medical Qualifiers: Diabetes mellitus complication status: with hyperglycemia Diabetes mellitus extermination supervisor insulin use: with extermination supervisor use Qualified Code(s): E11.65 - Type 2 diabetes mellitus with hyperglycemia; Z79.4 - residential (current) use of insulin Plan: A1c 6.4%, within goal Continue Trulicity 3 mg subQ q.week, Lantus 16 units subQ daily We will repeat A1c in 4 months (8) residential (current) use of insulin: Code(s): Z79.4 - extermination supervisor (current) use of insulin Category: Medical Plan: Continue Lantus 16 units daily (9) Hypothyroidism: Code(s): E03.9 - Hypothyroidism, unspecified Category: Medical Qualifiers: Hypothyroidism type: postablative Qualified Code(s): E89.0 - Postprocedural hypothyroidism Plan: Euthyroidism-continue levothyroxine 75 mcg daily We will repeat TFTs in 4 months (10) Depression, major, recurrent: Code(s): F33.9 - Major depressive disorder, recurrent, unspecified Category: Medical Qualifiers: Active/Remission status: currently active Major depression episode severity: unspecified Qualified Code(s): F33.9 - Major depressive disorder, recurrent, unspecified Plan: Encouraged CBT Continue citalopram 20 mg daily Orders: Orders Vitamin D 25-OH Total 4 Months E11.65 - Type 2 diabetes mellitus with hyperglycemia, E55.9 - Vitamin D deficiency, unspecified, E66.3 - Overweight, E66.9 - Obesity, unspecified, E78.00 - Pure hypercholesterolemia, unspecified, F33.9 - Major depressive disorder, recurrent, unspecified, I10 - Essential (primary) hypertension, M54.41 - Lumbago with sciatica, right side, M54.42 - Lumbago with sciatica, left side, Z79.4 - extermination supervisor (current) use of insulin US abdomen complete 02/06/25 R10.84 - Generalized abdominal pain Complete Blood Count Auto Diff 4 Months E11.65 - Type 2 diabetes mellitus with hyperglycemia, E55.9 - Vitamin D deficiency, unspecified, E66.3 - Overweight, E 66.9 - Obesity, unspecified, E78.00 - Pure hypercholesterolemia, unspecified, F33.9 - Major depressive disorder, recurrent, unspecified, I10 - Essential (primary) hypertension, M54.41 - Lumbago with sciatica, right side, M54.42 - Lumbago with sciatica, left side, Z79.4 - extermination supervisor (current) use of insulin Comprehensive [place]. Panel Fast 4 Months E11.65 - Type 2 diabetes mellitus with hyperglycemia, E55.9 - Vitamin D deficiency, unspecified, E66.3 - Overweight, E66.9 - Obesity, unspecified, E78.00 - Pure hypercholesterolemia, unspecified, F33.9 - Major depressive disorder, recurrent, unspecified, I10 - Essential (primary) hypertension, M54.41 - Lumbago with sciatica, right side, M54.42 - Lumbago with sciatica, left side, Z79.4 - residential (current) use of insulin TSH reflex Free T4 4 Months E11.65 - Type 2 diabetes mellitus with hyperglycemia, E55.9 - Vitamin D deficiency, unspecified, E66.3 - Overweight, E66.9 - Obesity, unspecified, E78.00 - Pure hypercholesterolemia, unspecified, F33.9 - Major depressive disorder, recurrent, unspecified, I10 - Essential (primary) hypertension, M54.41 - Lumbago with sciatica, right side, M54.42 - Lumbago with sciatica, left side, Z79.4 - residential (current) use of insulin UA CC w/rflx Micro + Cult 4 Months E11.65 - Type 2 diabetes mellitus with hyperglycemia, E55.9 - Vitamin D deficiency, unspecified, E66.3 - Overweight, E66.9 - Obesity, unspecified, E78.00 - Pure hypercholesterolemia, unspecified, F33.9 - Major depressive disorder, recurrent, unspecified, I10 - Essential (primary) hypertension, M54.41 - Lumbago with sciatica, right side, M54.42 - Lumbago with sciatica, left side, Z79.4 - residential (current) use of insulin Hemoglobin A1c 4 Months E11.65 - Type 2 diabetes mellitus with hyperglycemia, E55.9 - Vitamin D deficiency, unspecified, E66.3 - Overweight, E66.9 - Obesity, unspecified, E78.00 - Pure hypercholesterolemia, unspecified, F33.9 - Major depressive disorder, recurrent, unspecified, I10 - Essential (primary) hypertension, M54.41 - Lumbago with sciatica, right side, M54.42 - Lumbago with sciatica, left side, Z79.4 - extermination supervisor (current) use of insulin Lipid Panel 4 Months E11.65 - Type 2 diabetes mellitus with hyperglycemia, E55.9 - Vitamin D deficiency, unspecified, E66.3 - Overweight, E66.9 - Obesity, unspecified, E78.00 - Pure hypercholesterolemia, unspecified, F33.9 - Major depressive disorder, recurrent, unspecified, I10 - Essential (primary) hypertension, M54.41 - Lumbago with sciatica, right side, M54.42 - Lumbago with sciatica, left side, Z79.4 - residential (current) use of insulin Referrals Ophthalmology Referral E11.10 - Type 2 diabetes mellitus with ketoacidosis without coma, H53.8 - Other visual disturbances Medications: New trazodone 100 mg (2 x 50 mg) PO BEDTIME PRN 90 tabs 3RF Insomnia aspirin 81 mg PO DAILY 90 tabs 3RF citalopram 20 mg PO DAILY 90 tabs 3RF tizanidine 4 mg PO Q8H 14 days PRN 42 tabs 0RF muscle spasticity Changed From insulin syringe-needle U-100 As directed 90 ea To insulin syringe-needle U-100 As directed once daily 90 ea 2RF Refilled atorvastatin 10 mg PO DAILY 30 days 30 tabs 5RF E11.9 - Type 2 diabetes mellitus without complications blood sugar diagnostic 3 times a day 100 ea 6RF E11.9 - Type 2 diabetes mellitus without complications blood sugar diagnostic (FreeStyle Lite Strips) As directed three times a day 100 ea 0RF E11.65 - Type 2 diabetes mellitus with hyperglycemia, Z79.4 - residential (current) use of insulin cholecalciferol (vitamin D3) 25 mcg PO DAILY 90 days 90 caps 3RF E55.9 - Vitamin D deficiency, unspecified dulaglutide (Trulicity) 3 mg (0.5 mL) subcut QWEEK 28 days 2 mL 6RF Lantus Solostar U-100 Insulin (insulin glargine) 16 units (0.16 mL) subcut DAILY 90 days 15 mL 1RF NS E11.9 - Type 2 diabetes mellitus without complications, Z79.4 - extermination supervisor (current) use of insulin methylcellulose (laxative) (Citrucel) 500 mg PO DAILY 30 tabs 2RF K59.00 - Constipation, unspecified pen needle, diabetic daily 50 ea 11RF E11.9 - Type 2 diabetes mellitus without complications, Z79.4 - residential (current) use of insulin blood sugar diagnostic (FreeStyle Lite Strips) As directed three times a day 100 ea 11RF E11.65 - Type 2 diabetes mellitus with hyperglycemia, Z79.4 - extermination supervisor (current) use of insulin FreeStyle Lancets (lancets) USE DIRECTED 3X/DAY 100 ea 2RF NS E11.9 - Type 2 diabetes mellitus without complications, Z79.4 - residential (current) use of insulin levothyroxine 75 mcg PO DAILY 90 days 90 tabs 1RF E03.9 - Hypothyroidism, unspecified lisinopril 2.5 mg PO DAILY 60 tabs 1RF pantoprazole take one tablet half an hour before breakfast 40 mg PO DAILY 90 tabs 3RF K21.9 - Gastro-esophageal reflux disease without esophagitis
--- OUTSIDE RECORDS SUMMARY | 2025-02-06 10:27 | XMS_ITS | Clinical Summary ---
[facility] Organization [facility] Address [address] [place] [address] Care Team Providers Care Youth Services Specialist Name Role Phone Unavailable Primary Care Provider [...] DTaP,Tdap,and Td Vaccines (1 - Tdap) 01/17/1984 Cervical Cancer Screening: P ap Smear 1986 Pneumococcal Vaccine: 50+ Ye ars (1 of 1 - PCV) 2015 Zoster Vaccines (1 of 2) 2015 Colorectal Cancer Screening: Colonoscopy 10/17/2023 Depression Screening 10/17/2023 HIV Screening 10/17/2023 Hepatitis C Screening 10/17/2023 Social Influencers of Health Screening 10/17/2023 COVID-19 Vaccine ( - 2023-2 5 season) 2024 Influenza Vaccine (Season Ended) 2025 RSV Immunization Adult Patie nts (1 - 1-dose 75+ series) 01/17/2040 HIB Vaccines Aged Out No longer eligi ble based on patient's age to complete this topic HPV Vaccines Aged Out No longer eligi ble based on patient's age to complete this topic Hepatitis A Vaccines Aged Out No long er eligible based on patient's age to complete this topic Hepatitis B Vaccines Aged Out No long er eligible [...] age to complete this topic Meningococcal B Vaccine Aged Out No l onger eligible based on patient's age to complete [...]
== END 2025-02-06 11:32 | disposition home or self-care (01) ==
LOC: HO.HMCH 10:05
PROVIDERS: PCP Internal Medicine
DX: H53.8 Other visual disturbances (principal); E11.65 Type 2 diabetes mellitus with hyperglycemia; Z79.4 Long term (current) use of insulin; R10.84 Generalized abdominal pain; M54.42 Lumbago with sciatica, left side; M54.41 Lumbago with sciatica, right side; E66.3 Overweight; E55.9 Vitamin D deficiency, unspecified; I10 Essential (primary) hypertension; E89.0 Postprocedural hypothyroidism; F33.9 Major depressive disorder, recurrent, unspecified

== ENCOUNTER → 2025-02-06 10:05 | Outpatient (BNVA) | payer OTHER, SELFPAY | PROVIDERS: PCP Internal Medicine | DX: E11.65 Type 2 diabetes mellitus with hyperglycemia (principal); E78.5 Hyperlipidemia, unspecified; I10 Essential (primary) hypertension; K21.9 Gastro-esophageal reflux disease without esophagitis; R51.9 Headache, unspecified; H53.8 Other visual disturbances; R10.84 Generalized abdominal pain; M54.2 Cervicalgia; M54.41 Lumbago with sciatica, right side; E66.3 Overweight; E55.9 Vitamin D deficiency, unspecified; E89.0 Postprocedural hypothyroidism; F33.9 Major depressive disorder, recurrent, unspecified; Z79.4 Long term (current) use of insulin | CPT/HCPCS: 96127; 99212 ==

== ENCOUNTER 2025-02-13 10:30 | Outpatient (REF) | payer OTHER, SELFPAY ==
--- NOTE | ~2025-02-13 | US_ITS ---
EXAMINATION: US ABDOMEN COMPLETE CLINICAL INFORMATION: Generalized abdominal pain. COMPARISON: 11/01/2017. TECHNIQUE: Real-time imaging of the abdominal viscera. FINDINGS: PANCREAS: Visualized portions are unremarkable. ABDOMINAL AORTA: The proximal, mid, and distal segments are normal in caliber. INFERIOR VENA CAVA: Visualized portions are normal. LIVER: The liver is normal in size. Right hepatic lobe measures 12.3 cm. The liver contour is normal. Parenchymal echogenicity is normal. No focal hepatic lesion. There is no intrahepatic biliary duct dilatation seen. GALLBLADDER: Surgically absent. COMMON BILE DUCT: Normal in caliber measuring 0.6 cm in diameter. RIGHT KIDNEY: No hydronephrosis. No renal calculi or suspicious focal parenchymal lesions. The kidney measures 10.8 cm in maximum dimension. There is a lower pole 0.8 cm simple cyst. LEFT KIDNEY: No hydronephrosis. No renal calculi or focal parenchymal lesions. The kidney measures 11.0 cm in maximum dimension. SPLEEN: The spleen measures 7.6 cm in maximum dimension. FREE FLUID: None. US/US abdomen complete IMPRESSION: 1. Cholecystectomy. 2. Normal-appearing liver and bile ducts. 3. Left kidney simple lower pole cyst measuring 0.8 cm. 4. Right kidney normal. Electronically signed by: Justo Feliciano MD 02/13/2025 11:37 AM EDT
--- OUTSIDE RECORDS SUMMARY | 2025-02-13 10:56 | XMS_ITS | Clinical Summary ---
[facility] Organization [facility] Address [address] [place] [address] Care Team Providers Care Robotic Welder Name Role Phone Unavailable Primary Care Provider [...]
== END 2025-02-13 10:31 | disposition home or self-care (01) ==
LOC: HO.US 10:30
PROVIDERS: PCP Internal Medicine
DX: R10.84 Generalized abdominal pain (principal)
CPT/HCPCS: 76700

== ENCOUNTER → 2025-02-13 10:31 | Outpatient (BNV) | payer OTHER, SELFPAY | PROVIDERS: PCP Internal Medicine; Visit Provider Radiology Diagnostic Radiology | DX: N28.1 Cyst of kidney, acquired (principal) | CPT/HCPCS: 76700 ==

== ENCOUNTER 2025-05-07 07:44 | Outpatient (REF) | payer OTHER, SELFPAY ==
--- NOTE | ~2025-05-07 | MM_ITS ---
EXAMINATION: MM SCREENING DIGITAL BREAST TOMOSYNTHESIS, BILATERAL CLINICAL INFORMATION: Screening. Asymptomatic. COMPARISON: Mammography: Comparison is made with available priors TECHNIQUE: Digital breast mammography with tomosynthesis is performed in both the craniocaudal and mediolateral oblique views along with computer-aided detection (CAD). FINDINGS: There are scattered areas of fibroglandular density (ACR BI-RADS breast composition Category b). There are no significant masses, abnormal calcifications, or other abnormalities. MM/MM tomosynthesis screening BI IMPRESSION: No mammographic evidence of malignancy. ASSESSMENT: BI-RADS BI-RADS 1 - Negative RECOMMENDATION: Routine annual mammography screening. 1 year F/U This examination should not preclude the clinical evaluation of a suspicious palpable abnormality. This patient's information was entered into a reminder system with a target due date for their next mammogram. Electronically signed by: Reena Mcnally DO 05/08/2025 01:16 PM EDT
--- OUTSIDE RECORDS SUMMARY | 2025-05-07 07:47 | XMS_ITS | Clinical Summary ---
Author Organization [facility] Address [address] [place] [address] Phone Care Team Providers Care Art Studio Teacher Name Role Phone Physician, Pcp Unknown Primary Care Provider Garima vailable Allergies No known active allergies Medications cefpodoxime (VANTIN) 200 mg tablet Take 1 tablet (200 mg total) by mouth 2 (two) times a day for 10 days. 20 each 04/11/2025 Encounters Date Type Department Care Team Description 04/11/2025 8:53 PM EDT - 04/11/2025 11:50 PM EDT Emergency [facility] Emergency [address] [place] [address] Mich Haddad MD Pyelonephritis (Primary Dx); Flank pain; Fever, unspecified fever cause Discharge Disposition: Home or Self Care from Last 3 Months Social History Tobacco Use Types Packs/Day Years Used Date Smoking Tobacco: Never Assessed Comments Unknown Sex and Gender Information Value Date Recorded Sex Assigned at Not on file Legal Sex Female 1:55 PM EST Gender Identity Not on file Sexual Orientation Not on file Last Filed Vital Signs Vital Sign Reading Time Taken Comments Blood Pressure 117/67 04/11/2025 9:01 PM EDT Pulse 101 04/11/2025 9:01 PM EDT Temperature 37.2 C (99 F) 04/11/2025 9:48 PM EDT Respiratory Rate 18 04/11/2025 9:01 PM EDT Oxygen Saturation 95% 04/11/2025 9:01 PM EDT Inhaled Oxygen Concentration - - Weight 63.5 kg (140 lb) 04/11/2025 7:45 PM EDT Height 154.9 cm (5' 1 ) 04/11/2025 7:45 PM EDT Body Mass Index 26.45 04/11/2025 7:45 PM EDT Plan of Treatment Health Maintenance Due Date Last Done Comments Breast Cancer Screening 1965 Cervical Cancer Screening: Pap Smear 1986 Zoster Vaccines (1 of 2) 2015 Pneumococcal Vaccine: 50+ Years (2 of 2 - PCV) 07/03/2018 07/03/2017 Colorectal Cancer Screening: Colonoscopy 10/17/2023 HIV Screening 10/17/2023 Hepatitis C Screening 10/17/2023 Social Influencers of Health Screening 10/17/2023 COVID-19 Vaccine ( season) 2024 12/24/2020, 11/27/2020 Depression Screening 09/18/2024 Influenza Vaccine (#1) 2025 , 07/18/2022, 09/14/2021, Additional history exists DTaP,Tdap,and Td Vaccines (2 - Td or Tdap) 07/17/2027 07/17/2017 RSV Immunization Adult Patients (1 - 1-dose 75+ series) 01/17/2040 HIB [...] to complete this topic RSV Immunization Patients Under 20 months Aged Out No longer eligible based on patient's age to complete this topic Varicella Vaccines Aged Out No longer eligible based on patient's age to complete this topic Procedures Procedure Name Priority Date/Time Associated Diagnosis Comments AVILA URINE CULTURE TUBE STAT 04/11/2025 8:15 PM EDT URINALYSIS WITH REFLEX MICROSCOPIC AND CULTURE STAT 04/11/2025 8:15 PM EDT URINALYSIS WITH REFLEX MICROSCOPIC AND CULTURE STAT 04/11/2025 8:15 PM EDT CULTURE URINE STAT 04/11/2025 8:15 PM EDT CBC WITH AUTO DIFFERENTIAL STAT 04/11/2025 8:11 PM EDT COMPREHENSIVE METABOLIC PANEL STAT 04/11/2025 8:11 PM EDT CBC AND DIFFERENTIAL STAT 04/11/2025 8:11 PM EDT from Last 3 Months Results * (ABNORMAL) Urinalysis with reflex microscopic and culture (04/11/2025 8:15 PM EDT) Specific [place] Urine 1.014 1.003 - 1.030 LAB URINALYSIS - AUTOMATED METHOD 04/11/2025 8:48 PM [facility] pH, Urine 6.0 5.0 - 8.0 pH LAB URINALYSIS - AUTOMATED METHOD 04/11/2025 8:48 PM [facility] Leukocytes, Urine Moderate(A) Negative LAB URINALYSIS - AUTOMATED METHOD 04/11/2025 8:48 PM [facility] Nitrite, Urine Negative Negative LAB URINALYSIS - AUTOMATED METHOD 04/11/2025 8:48 PM [facility] Protein, Urine 30(A) <=Trace mg/dL LAB URINALYSIS - AUTOMATED METHOD 04/11/2025 8:48 PM [facility] Glucose, Urine Negative Negative mg/dL LAB URINALYSIS - AUTOMATED METHOD 04/11/2025 8:48 PM [facility] Ketones, Urine Negative Negative mg/dL LAB URINALYSIS - AUTOMATED METHOD 04/11/2025 8:48 PM [facility] Urobilinogen , Urine 1.0 0.2 - 1.0 mg/dL LAB URINALYSIS - AUTOMATED METHOD 04/11/2025 8:48 PM EDT [facility] Bilirubin, Urine Negative Negative LAB URINALYSIS - AUTOMATED METHOD 04/11/2025 8:48 PM EDT [facility] Blood, Urine Small(A) Negative LAB URINALYSIS - AUTOMATED METHOD 04/11/2025 8:48 PM EDT [facility] RBC, Urine 3.3 0 - 4 /HPF LAB URINALYSIS - AUTOMATED METHOD 04/11/2025 8:48 PM EDT [facility] WBC, Urine 61.9(H) 0 - 4 /HPF LAB URINALYSIS - AUTOMATED METHOD 04/11/2025 8:48 [facility] Squamous Epithelial, Urine 6 0 - 60 /LPF LAB URINALYSIS - AUTOMATED METHOD 04/11/2025 8:48 PM EDT [facility] Bacteria, Urine Many(A) Negative /HPF LAB URINALYSIS - AUTOMATED METHOD 04/11/2025 8:48 PM EDT [facility] Hyaline Casts, Urine 1.2 0 - 3 /LPF LAB URINALYSIS - AUTOMATED METHOD 04/11/2025 8:48 PM [facility] Urine Urine specimen obtained by clean catch procedure / Unknown Non-blood Collection / Unknown 04/11/2025 8:15 PM EDT 04/11/2025 8:23 PM EDT us Mich Haddad MD LAB URINE ORDERABLES Final Resu lt [facility] [address] [place] [address], * Avila urine culture tube (04/11/2025 8:15 PM EDT) Extra Tube Hold for add-ons. 04/11/2025 10:02 PM EDT [facility] Comment:Auto resulted. Urine Urine specimen obtained by clean catch procedure / Unknown Non-blood Collection / Unknown 04/11/2025 8:15 PM EDT 04/11/2025 8:23 PM EDT Mich Haddad MD LAB URINE ORDERABLES Final Resu lt [facility] [address] [place] [address], [place] [phone] * (ABNORMAL) Culture urine (04/11/2025 8:15 PM EDT) Culture, Urine >=100,000 CFU/mL Escherichia coli(A) DELMA 04/13/2025 9:47 AM EDT [facility] Urine Urine specimen obtained by clean catch procedure / Unknown Non-blood Collection / Unknown 04/11/2025 8:15 PM EDT 04/11/2025 8:48 PM EDT Narrative Organism Antibiotic Method Susceptibility Escherichia coli Amoxicillin/Clavulanate DELMA 16 ug/ml: Intermediate Escherichia coli Ampicillin/Sulbactam DELMA >=32 ug/ml: Resistant Escherichia coli Piperacillin/Tazobactam DELMA <=4 ug/ml: Susceptible Escherichia coli Cefazolin (Urine) DELMA 8 ug/ml: Susceptible Escherichia coli Cefoxitin DELMA <=4 ug/ml: Susceptible Escherichia coli Ceftazidime DELMA <=0.5 ug/ml: Susceptible Escherichia coli Ceftriaxone DELMA <=0.25 ug/ml: Susceptible Escherichia coli Cefepime DELMA <=0.12 ug/ml: Susceptible Escherichia coli Meropenem DELMA <=0.25 ug/ml: Susceptible Escherichia coli Amikacin DELMA 2 ug/ml: Susceptible Escherichia coli Gentamicin DELMA <=1 ug/ml: Susceptible Escherichia coli Ciprofloxacin DELMA 0.5 ug/ml: Intermediate Escherichia coli Levofloxacin DELMA 1 ug/ml: Intermediate Escherichia coli Nitrofurantoin DELMA <=16 ug/ml: Susceptible Escherichia coli Trimethoprim/Sulfamethoxazole DELMA <=20 ug/ml: Susceptible Mich Haddad MD LAB MICROBIOLOGY - GENERAL KOJO GOMEZ Final Result [facility] [address] [place] [address], * (ABNORMAL) CBC auto differential (04/11/2025 8:11 PM EDT) [facility] WBC 7.2 4.8 - 10.8 K/mcL LAB HEMETOLOGY METHOD 04/11/2025 8:23 PM EDT [facility] RBC 4.20 3.80 - 4.80 M/mcL LAB HEMETOLOGY METHOD 04/11/2025 8:23 PM EDT [facility] Hemoglobin 11.1(L) 11.5 - 16.0 g/dL LAB HEMETOLOGY METHOD 04/11/2025 8:23 PM EDT [facility] Hematocrit 32.9(L) 35.0 - 47.0 % LAB HEMETOLOGY METHOD 04/11/2025 8:23 PM EDT [facility] MCV 78.3(L) 79.0 - 98.0 FL LAB HEMETOLOGY METHOD 04/11/2025 8:23 PM EDT [facility] MCH 26.4(L) 27.0 - 32.0 pcg LAB HEMETOLOGY METHOD 04/11/2025 8:23 PM EDT [facility] MCHC 33.7 32.0 - 37.0 g/dL LAB HEMETOLOGY METHOD 04/11/2025 8:23 PM EDT [facility] RDW 13.3 11.0 - 15.0 % LAB HEMETOLOGY METHOD 04/11/2025 8:23 PM EDT [facility] Platelets 204 130 - 400 K/mcL LAB HEMETOLOGY METHOD 04/11/2025 8:23 PM EDT [facility] MPV 10.8 7.0 - 11.0 FL LAB HEMETOLOGY METHOD 04/11/2025 8:23 PM EDT [facility] NRBC 0.0 <1.0 % LAB HEMETOLOGY METHOD 04/11/2025 8:23 PM [facility] NRBC Absolute 0.00 <0.10 K/mcL LAB HEMETOLOGY METHOD 04/11/2025 8:23 PM [facility] Neutrophils Relative 88.3 % LAB HEMETOLOGY METHOD 04/11/2025 8:23 PM [facility] Lymphocytes Relative 6.8 % LAB HEMETOLOGY METHOD 04/11/2025 8:23 PM [facility] Monocytes Relative 3.0 % LAB HEMETOLOGY METHOD 04/11/2025 8:23 PM [facility] Eosinophils Relative 1.1 % LAB HEMETOLOGY METHOD 04/11/2025 8:23 PM [facility] Basophils Relative 0.4 % LAB HEMETOLOGY METHOD 04/11/2025 8:23 PM [facility] Immature Granulocytes Relative 0.4 % LAB HEMETOLOGY METHOD 04/11/2025 8:23 PM [facility] Neutrophils Absolute 6.37 1.50 - 7.00 K/mcL LAB HEMETOLOGY METHOD 04/11/2025 8:23 PM [facility] Lymphocytes Absolute 0.49(L) 1.00 - 5.00 K/mcL LAB HEMETOLOGY METHOD 04/11/2025 8:23 PM [facility] Monocytes Absolute 0.22 0.20 - 1.00 K/mcL LAB HEMETOLOGY METHOD 04/11/2025 8:23 PM [facility] Eosinophils Absolute 0.08 0.00 - 0.50 K/mcL LAB HEMETOLOGY METHOD 04/11/2025 8:23 PM [facility] Basophils Absolute 0.03 0.00 - 0.20 K/[facility] LAB HEMETOLOGY METHOD 04/11/2025 8:23 PM EDT [facility] Immature Granulocytes Absolute 0.03 0.00 - 0.03 K/[facility] LAB HEMETOLOGY METHOD 04/11/2025 8:23 PM EDT [facility] Blood Venous blood specimen / Unknown Venipuncture / Unknown 04/11/2025 8:11 PM EDT 04/11/2025 8:15 PM EDT us Mich Haddad MD LAB BLOOD ORDERABLES Final Resu lt [facility] [address] [place] [address], [place] [phone] * (ABNORMAL) Comprehensive metabolic panel (04/11/2025 8:11 PM EDT) Sodium 134 133 - 145 mmol/L LAB CHEMISTRY METHOD 04/11/2025 8:44 PM [facility] Potassium 4.1 3.5 - 5.5 mmol/L LAB CHEMISTRY METHOD 04/11/2025 8:44 PM [facility] Chloride 104 96 - 110 mmol/L LAB CHEMISTRY METHOD 04/11/2025 8:44 PM [facility] CO2 25 21 - 32 mmol/L LAB CHEMISTRY METHOD 04/11/2025 8:44 PM [facility] Anion Gap 5 3 - 11 LAB CHEMISTRY METHOD 04/11/2025 8:44 PM [facility] Glucose 174(H) 70 - 100 mg/dL LAB CHEMISTRY METHOD 04/11/2025 8:44 PM [facility] BUN 16 5 - 25 mg/dL LAB CHEMISTRY METHOD 04/11/2025 8:44 PM [facility] Creatinine 0.97 0.50 - 1.10 mg/dL LAB CHEMISTRY METHOD 04/11/2025 8:44 PM EDT [facility] eGFR 67 >=60 mL/min/1. 73m2 LAB CHEMISTRY METHOD 04/11/2025 8:44 PM T [facility] Comment:Calculation based on the Chronic Kidney Disease Epidemiology Collaboration (CKD-EPI) equation refit without adjustment for race. BUN/Creatinine Ratio 16.5 LAB CHEMISTRY METHOD 04/11/2025 8:44 PM T [facility] Calcium 8.8 8.5 - 10.5 mg/dL LAB CHEMISTRY METHOD 04/11/2025 8:44 PM [facility] AST (SGOT) 20 10 - 42 unit/L LAB CHEMISTRY METHOD 04/11/2025 8:44 PM [facility] ALT (SGPT) 27 10 - 60 unit/L LAB CHEMISTRY METHOD 04/11/2025 8:44 PM [facility] Alkaline Phosphatase 92 42 - 121 unit/L LAB CHEMISTRY METHOD 04/11/2025 8:44 PM T [facility] Total Protein 7.1 6.0 - 8.0 g/dL LAB CHEMISTRY METHOD 04/11/2025 8:44 PM [facility] Albumin 3.6 3.2 - 5.0 g/dL LAB CHEMISTRY METHOD 04/11/2025 8:44 PM [facility] Total Bilirubin 0.8 0.0 - 1.4 mg/dL LAB CHEMISTRY METHOD 04/11/2025 8:44 PM T [facility] Blood Venous blood specimen / Unknown Venipuncture / Unknown 04/11/2025 8:11 PM EDT 04/11/2025 8:15 PM EDT us Mich Haddad MD LAB BLOOD ORDERABLES Final Resu lt [facility] [address] [place] [address], [place] [phone] from Last 3 Months Insurance MEDICAID - [place] Care Teams Art Studio Teacher Relationship Specialty Start Date End Date Physician, Pcp Unknown PCP - General 04/11/25
== END 2025-05-07 07:45 | disposition home or self-care (01) ==
LOC: HO.MAMMO 07:44
PROVIDERS: Visit Provider Internal Medicine
DX: Z12.31 Encounter for screening mammogram for malignant neoplasm of breast (principal)
CPT/HCPCS: 77063; 77067

== ENCOUNTER → 2025-05-07 08:00 | Outpatient (BNV) | payer OTHER, SELFPAY | PROVIDERS: Visit Provider Internal Medicine | DX: Z12.31 Encounter for screening mammogram for malignant neoplasm of breast (principal) | CPT/HCPCS: 77063; 77067 ==

== ENCOUNTER 2025-06-02 06:49 | Outpatient (REF) | payer OTHER, SELFPAY ==
--- OUTSIDE RECORDS SUMMARY | 2025-06-02 06:53 | XMS_ITS | Clinical Summary ---
Author Organization [facility] Address [address] [place] [address] Phone Care Team Providers Care Sales Agent Insurance Name Role Phone Physician, Pcp Unknown Primary Care Provider Garima vailable Allergies No known active allergies Encounters Date Type Department Care Team Description 04/11/2025 8:53 PM EDT - 04/11/2025 11:50 PM EDT Emergency [facility] Emergency [address] [place] [address] Mich Haddad MD Pyelonephritis (Primary [...] 10/17/2023 Social Influencers of Health Screening 10/17/2023 Depression Screening 09/18/2024 COVID-19 Vaccine (3 - season) 2025 12/24/2020, 11/27/2020 Influenza Vaccine (#1) 2025 3, 07/18/2022, 09/14/2021, Additional history exists DTaP,Tdap,and Td [...] and culture (04/11/2025 8:15 PM EDT) Specific [place] Urine 1.014 1.003 - 1.030 LAB URINALYSIS - AUTOMATED METHOD 04/11/2025 8:48 PM [facility] pH, Urine 6.0 5.0 - 8.0 pH LAB URINALYSIS - AUTOMATED METHOD 04/11/2025 8:48 PM [facility] Leukocytes, Urine Moderate(A) Negative LAB URINALYSIS - AUTOMATED METHOD 04/11/2025 8:48 PM [facility] Nitrite, Urine Negative Negative LAB URINALYSIS - AUTOMATED METHOD 04/11/2025 8:48 PM [facility] Protein, Urine 30(A) <=Trace mg/dL LAB URINALYSIS - AUTOMATED METHOD 04/11/2025 8:48 PM [facility] Glucose, Urine Negative Negative mg/dL LAB URINALYSIS - AUTOMATED METHOD 04/11/2025 8:48 PM [facility] Ketones, Urine Negative Negative mg/dL LAB URINALYSIS - AUTOMATED METHOD 04/11/2025 8:48 PM [facility] Urobilinogen , Urine 1.0 0.2 - 1.0 mg/dL LAB URINALYSIS - AUTOMATED METHOD 04/11/2025 8:48 PM [facility] Bilirubin, Urine Negative Negative LAB URINALYSIS - AUTOMATED METHOD 04/11/2025 8:48 PM EDT [facility] Blood, Urine Small(A) Negative LAB URINALYSIS - AUTOMATED METHOD 04/11/2025 8:48 PM EDT [facility] RBC, Urine 3.3 0 - 4 /HPF LAB URINALYSIS - AUTOMATED METHOD 04/11/2025 8:48 PM EDT [facility] WBC, Urine 61.9(H) 0 - 4 /HPF LAB URINALYSIS - AUTOMATED METHOD 04/11/2025 8:48 PM EDT [facility] Squamous Epithelial, Urine 6 0 - 60 /LPF LAB URINALYSIS - AUTOMATED METHOD 04/11/2025 8:48 PM EDT [facility] Bacteria, Urine Many(A) Negative /HPF LAB URINALYSIS - AUTOMATED METHOD 04/11/2025 8:48 PM EDT [facility] Hyaline Casts, Urine 1.2 0 - 3 /LPF LAB URINALYSIS - AUTOMATED METHOD 04/11/2025 8:48 PM EDT [facility] Urine Urine specimen obtained by clean catch procedure / Unknown Non-blood Collection / Unknown 04/11/2025 8:15 PM EDT 04/11/2025 8:23 PM EDT Mich Haddad MD LAB URINE ORDERABLES Final Resu lt [facility] [address] [place] [address], * Avila urine culture tube (04/11/2025 8:15 PM EDT) Extra Tube Hold for add-ons. 04/11/2025 10:02 PM EDT [facility] Comment:Auto resulted. Urine Urine specimen obtained by clean catch procedure / Unknown Non-blood Collection / Unknown 04/11/2025 8:15 PM EDT 04/11/2025 8:23 PM EDT Mich Haddad MD LAB URINE ORDERABLES Final Resu lt [facility] [address] [place] [address], [place] [phone] * (ABNORMAL) Culture urine (04/11/2025 8:15 PM EDT) Culture, Urine >=100,000 CFU/mL Escherichia coli(A) DELMA 04/13/2025 9:47 AM EDT [facility] Urine Urine specimen obtained by [...] Mich Haddad MD LAB MICROBIOLOGY - GENERAL ORDE RABLES Final Result Performing Organization Address [facility]/ZIP Co de Phone Number [facility] [address] [place] [address], [place] [phone] * (ABNORMAL) CBC auto differential (04/11/2025 8:11 PM EDT) [facility] WBC 7.2 4.8 - 10.8 K/mcL LAB HEMETOLOGY METHOD 04/11/2025 8:23 PM EDT [facility] RBC 4.20 3.80 - 4.80 M/mcL LAB HEMETOLOGY METHOD 04/11/2025 8:23 PM EDT [facility] Hemoglobin 11.1(L) 11.5 - 16.0 g/dL LAB HEMETOLOGY METHOD 04/11/2025 8:23 PM EDT [facility] Hematocrit 32.9(L) 35.0 - 47.0 % LAB HEMETOLOGY METHOD [facility] MCV 78.3(L) 79.0 - 98.0 FL LAB HEMETOLOGY METHOD 04/11[facility]2025 8:[facility] MCH 26.4(L) 27.0 - 32.0 pcg LAB HEMETOLOGY METHOD 04/11/2025 8:23 PM EDT [facility] MCHC 33.7 32.0 - 37.0 g/dL LAB HEMETOLOGY METHOD 04/11/2025 8:23 PM [facility] RDW 13.3 11.0 - 15.0 % LAB HEMETOLOGY METHOD 04/11/2025 8:23 PM EDT [facility] Platelets 204 130 - 400 K/mcL LAB HEMETOLOGY METHOD 04/11/2025 8:[facility] MPV 10.8 7.0 - 11.0 FL LAB HEMETOLOGY METHOD 04/11/2025 8:[facility] NRBC 0.0 <1.0 % LAB HEMETOLOGY METHOD 04/11/2025 8:23 PM EDT [facility] NRBC Absolute 0.00 <0.10 K/mcL LAB HEMETOLOGY METHOD 04/11/2025 8:[facility] Neutrophils Relative 88.3 % LAB HEMETOLOGY METHOD 04/11/2025 8:23 PM [facility] Lymphocytes Relative 6.8 % LAB HEMETOLOGY METHOD 04/11/2025 8:23 PM [facility] Monocytes Relative 3.0 % LAB HEMETOLOGY METHOD 04/11/2025 8:23 PM [facility] Eosinophils Relative 1.1 % LAB HEMETOLOGY METHOD 04/11/2025 8:23 PM [facility] Basophils Relative 0.4 % LAB HEMETOLOGY METHOD 04/11/2025 8:23 PM [facility] Immature Granulocytes Relative 0.4 % LAB HEMETOLOGY METHOD 04/11/2025 8:23 PM [facility] Neutrophils Absolute 6.37 1.50 - 7.00 K/mcL LAB HEMETOLOGY METHOD 04/11/2025 8:23 PM [facility] Lymphocytes Absolute 0.49(L) 1.00 - 5.00 K/mcL LAB HEMETOLOGY METHOD 04/11/2025 8:23 PM [facility] Monocytes Absolute 0.22 0.20 - 1.00 K/mcL LAB HEMETOLOGY METHOD 04/11/2025 8:23 PM [facility] Eosinophils Absolute 0.08 0.00 - 0.50 K/mcL LAB HEMETOLOGY METHOD 04/11/2025 8:23 PM [facility] Basophils Absolute 0.03 0.00 - 0.20 K/mcL LAB HEMETOLOGY METHOD 04/11/2025 8:23 PM [facility] Immature Granulocytes Absolute 0.03 0.00 - 0.03 K/mcL LAB HEMETOLOGY METHOD 04/11/2025 8:23 PM [facility] Blood Venous blood specimen / Unknown Venipuncture / Unknown 04/11/2025 8:11 PM EDT 04/11/2025 8:15 PM EDT us Mich Haddad MD LAB BLOOD ORDERABLES Final Resu lt [facility] [address] [place] [address], * (ABNORMAL) Comprehensive metabolic panel (04/11/2025 8:11 PM EDT) Sodium 134 133 - 145 mmol/L LAB CHEMISTRY METHOD 04/11/2025 8:44 PM [facility] Potassium 4.1 3.5 - 5.5 mmol/L LAB CHEMISTRY METHOD 04/11/2025 8:44 PM [facility] Chloride 104 96 - 110 mmol/L LAB CHEMISTRY METHOD 04/11/2025 8:44 PM [facility] CO2 25 21 - 32 mmol/L LAB CHEMISTRY METHOD 04/11/2025 8:44 PM [facility] Anion Gap 5 3 - 11 LAB CHEMISTRY METHOD 04/11/2025 8:44 PM [facility] Glucose 174(H) 70 - 100 mg/dL LAB CHEMISTRY METHOD 04/11/2025 8:44 PM [facility] BUN 16 5 - 25 mg/dL LAB CHEMISTRY METHOD 04/11/2025 8:44 PM [facility] Creatinine 0.97 0.50 - 1.10 mg/dL LAB CHEMISTRY METHOD 04/11/2025 8:44 PM [facility] eGFR 67 >=60 mL/min/1. 73m2 LAB CHEMISTRY METHOD 04/11/2025 8:44 PM [facility] Comment:Calculation based on the Chronic Kidney Disease Epidemiology Collaboration (CKD-EPI) equation refit without adjustment for race. BUN/Creatinine Ratio 16.5 LAB CHEMISTRY METHOD 04/11/2025 8:44 PM T [facility] Calcium 8.8 8.5 - 10.5 mg/dL LAB CHEMISTRY METHOD 04/11/2025 8:44 PM T [facility] AST (SGOT) 20 10 - 42 unit/L LAB CHEMISTRY METHOD 04/11/2025 8:44 PM T [facility] ALT (SGPT) 27 10 - 60 unit/L LAB CHEMISTRY METHOD 04/11/2025 8:44 PM [facility] Alkaline Phosphatase 92 42 - 121 unit/L LAB CHEMISTRY METHOD 04/11/2025 8:44 PM [facility] Total Protein 7.1 6.0 - 8.0 g/dL LAB CHEMISTRY METHOD 04/11/2025 8:44 PM EDT [facility] Albumin 3.6 3.2 - 5.0 g/dL LAB CHEMISTRY METHOD 04/11/2025 8:44 PM [facility] Total Bilirubin 0.8 0.0 - 1.4 mg/dL LAB CHEMISTRY METHOD 04/11/2025 8:44 PM T [facility] Blood Venous blood specimen / Unknown Venipuncture / Unknown 04/11/2025 8:11 PM EDT 04/11/2025 8:15 PM EDT us Mich Haddad MD LAB BLOOD ORDERABLES Final Resu lt [facility] [address] [place] [address], from Last 3 Months Insurance MEDICA[place] - [place] Care Teams Sales Agent Insurance Relationship Specialty Start Date End Date Physician, Pcp Unknown PCP - General 04/11/25
[2025-06-02 07:01] LABS: MANUAL DIFF FLAG NO
[2025-06-02 07:24] LABS: Hematocrit 37.3 % (37.0-47.0); Hemoglobin 12.5 g/dl (12.0-16.0); Imm Gran Abs Auto 0.01 X10*3/uL (0.00-0.03); Imm Gran Pct Auto 0.2 % (0.0-0.4); Lymphocytes Absolute Auto 1.2 X10*3/uL (1.2-4.9); Mean Corpuscular HGB Conc 33.5 g/dl (31.0-35.0); Mean Corpuscular Hemoglobin 26.8 pg (27.0-33.0); Mean Corpuscular Volume 79.9 fL (80.0-98.0); NRBC Abs Auto 0.000 X10*3/uL (0.0-0.012); NRBC Pct Auto 0.0 /100WBC (0.0-0.2); Platelet Count 223 X10*3/uL (160-400); Red Blood Count 4.67 X10*6/uL (4.20-5.50); White Blood Count 4.7 X10*3/uL (4.8-10.8)
[2025-06-02 07:34] LABS: Hemoglobin A1C 162.9943 umol/L; Total Hemoglobin (HGBA1C) 3338.6733 umol/L
[2025-06-02 07:38] LABS: Appearance Urine Clear; Glucose Urine UA Negative (Negative); PH 7.0 (5.0-9.0); Specific Gravity - Urine 1.015 (1.005-1.025)
[2025-06-02 08:06] LABS: Alanine Aminotransferase 24 U/L (0-31); Albumin Level 4.4 g/dL (3.5-5.0); Alkaline Phosphatase 88 U/L (39-117); Anion Gap 10 (12-20); Aspartate Amino Transferase 25 U/L (5-31); Blood Urea Nitrogen 17 mg/dL (9-16); Calcium 8.9 mg/dL (8.4-10.2); Carbon Dioxide 27 mmol/L (22-29); Chloride 109 mmol/L (96-108); Cholesterol 122 mg/dL (<200); Estimated Glomerular Filt Rate > 60; HDL Cholesterol 43 mg/dL (>40); Potassium 4.3 mmol/L (3.3-5.1); Sodium 142 mmol/L (135-145); Total Protein 7.2 g/dL (6.5-8.0); Triglycerides 60 mg/dL (<150)
== END 2025-06-02 06:50 | disposition home or self-care (01) ==
LOC: HO.LAB 06:49
PROVIDERS: PCP Internal Medicine
DX: M54.42 Lumbago with sciatica, left side (principal); M54.41 Lumbago with sciatica, right side; E66.3 Overweight; E55.9 Vitamin D deficiency, unspecified; I10 Essential (primary) hypertension; E66.9 Obesity, unspecified; E11.65 Type 2 diabetes mellitus with hyperglycemia; Z79.4 Long term (current) use of insulin; E78.00 Pure hypercholesterolemia, unspecified; F33.9 Major depressive disorder, recurrent, unspecified
CPT/HCPCS: 36415; 80053; 80061; 81003; 82306; 83036; 84443; 85025

== ENCOUNTER 2025-06-09 13:54 | Outpatient (AMB) | payer OTHER, SELFPAY ==
[2025-06-09 14:28] VITALS: BP 126/82; PULSE 78; O2SAT 98; BMI 27.1
--- NOTE | 2025-06-09 14:28 | A.OFFPC_ITS ---
Vital Signs 06/09/25 14:28 Height 5 ft 1 in Weight 143 lb 6 oz BMI 27.1 BP 126/82 Blood Pressure Location Lt brachial Position Sitting Pulse 78 Pulse Source Pulse Oximeter Pulse Oximetry (%) 98 Oxygen Delivery Method Room Air Intake Visit Reasons: htn/dm/gerd/hld with Dr. Cardenas Clinical Systems Educator Required: No Accompanied by: Self / Same As Patient Allergies Penicillins (PENICILLINS) Allergy (Unknown, Verified 06/09/25 15:05) RASH Medication List - Last Reconciled 06/09/25 by Jeremias Cardenas MD alcohol swabs pad topical TID aspirin 81 mg PO DAILY atorvastatin 10 mg PO DAILY 30 days blood sugar diagnostic 3 times a day blood sugar diagnostic (FreeStyle Lite Strips) As directed three times a day blood sugar diagnostic (FreeStyle Lite Strips) As directed three times a day cholecalciferol (vitamin D3) 25 mcg PO DAILY 90 days citalopram 20 mg PO DAILY dulaglutide (Trulicity) 3 mg (0.5 mL) subcut QWEEK 28 days FreeStyle Lancets (lancets) USE DIRECTED 3X/DAY NS insulin syringe-needle U-100 As directed once daily Lantus Solostar U-100 Insulin (insulin glargine) 16 units (0.16 mL) subcut DAILY 90 days NS levothyroxine 75 mcg PO DAILY 90 days lisinopril 2.5 mg PO DAILY methylcellulose (laxative) (Citrucel) 500 mg PO DAILY pantoprazole 40 mg PO DAILY pen needle, diabetic daily tizanidine 4 mg PO Q8H PRN 14 days trazodone 100 mg (2 x 50 mg) PO BEDTIME PRN Tobacco use date assessed: 06/09/25 Dental Screening Dental Screen Date: 06/09/25 HPI htn/dm/gerd/hld with Dr. Cardenas HPI Details Patient comes in today for her follow-up visit States that she feels okay She denies any headaches or dizziness Denies any chest pains, no shortness of breath No nausea/vomiting, no abdominal pain No change in bowel habits noted Needs several of her Rx refilled She had her follow-up labs done last week - to discuss her results [facility] Medical History Lumbar spondylosis Benign essential hypertension Obesity (BMI 30-39.9) Diabetic nephropathy associated with type 2 diabetes mellitus prison (current) use of insulin GERD without esophagitis Pure hypercholesterolemia Diabetes type 2, controlled Hypothyroidism Depression, major, recurrent Surgical History History of removal of cyst History of colonoscopy History of total hysterectomy Family History Father No problems noted. Mother HTN (hypertension) Brother No problems noted. Sister No problems noted. Sister No problems noted. Daughter No problems noted. Son No problems noted. Son No problems noted. Son No problems noted. Social History Household Members: Spouse Housing: Apartment Are you a primary rn patient care to a significant other at home: No Do you presently have visiting nurse or other home services: No Alcohol intake: never Patient Tobacco Use Status: Never used Tobacco e-Cigarette/Vaping Use: Never Used Second Hand Smoke Exposure: Yes service: No Current occupational status: disabled Sexual orientation: Straight/Heterosexual Gender identity: Female Cognitive needs: No Hearing needs: No Vision needs: No Female Reproductive History Menstrual Age of Menarche: 13 Questionnaire PHQ-9 Over the last 2 weeks, how often have you been bothered by any of the following problems? Depression Screening Interpretation: Negative Depression Screening Done: Yes Source: Developed by Drs. Slava Velez, Tere Moreno, Neel Chris and colleagues, with an educational arlette from [employer]. Thrive Questionnaire Date Thrive assessed: 02/06/25 I am a: Patient What is your living situation today?: I have a steady place to live Within the past 12 months, did the food you bought not last and you didn't have the money to get more?: Never true Within the past 12 months, did you worry whether your food would run out before you got money to buy more?: Never true Do you have trouble paying for medicines?: No Do you have trouble getting transportation to medical appointments?: No Do you have trouble paying your heating and electricity bill?: No Do you have trouble taking care of your child, family member or friend?: No Do you have trouble with day-to-day activities such as bathing, preparing meals, shopping, managing finances, etc.?: No Are you currently unemployed and looking for a job?: Yes Are you interested in more education?: Yes Please select the resources that you would like help with: None Currently or been in a relationship where the following occur: No concerns reported THRIVE Score: 0 AUDIT C Alcohol Use Questionnaire (AUDIT-C) 1. How often do you have a drink containing alcohol?: Never 3. How often do you have six or more drinks on one occasion?: Never Total Score: 0 Score Reviewed/Action Taken: No JONN-7 AMB Questionnaire JONN-7 Date JONN - 7 assessed: 02/06/25 Source: Developed by Drs. Slava Velez, Tere Moreno, Neel Chris and colleagues, with an educational arlette from [employer]. Review of Systems Const Denies chills, Denies fatigue, Denies fever(s) and Denies headache(s) ENT Denies dysphagia, Denies dizziness, Denies otalgia, Denies headache(s), Denies neck pain, Denies odynophagia and Denies sore throat Card Denies chest pain, Denies palpitations and Denies dyspnea Resp Denies cough and Denies dyspnea GI Denies abdominal pain, Denies constipation, Denies dysphagia, Denies heartburn, Denies diarrhea, Denies nausea, Denies odynophagia and Denies vomiting Denies difficulty voiding, Denies nocturia, Denies dysuria and Denies urinary urgency Musc Reports back pain (over the lower back) and Denies neck pain Skin/Breast Denies rash Neuro Denies dizziness and Denies headache(s) Endo Denies fatigue and Denies palpitations Physical exam (Primary Care) Vital Signs: Last Vital Signs Pulse 78 06/09/25 14:28 BP 126/82 06/09/25 14:28 Pulse Ox 98 06/09/25 14:28 Oxygen Delivery Method Room Air 06/09/25 14:28 BMI result Body Mass Index 27.1 Tobacco/Smoking Status: Tobacco use Status Tobacco use date assessed 06/09/25 06/09/25 14:33 Patient Tobacco Use Status Never used Tobacco 06/09/25 14:33 e-Cigarette/Vaping Use Never Used 06/09/25 14:33 Depression Screening Interpretation: Negative Thrive Assessment: Date of Thrive Assessment Date Thrive assessed 02/06/25 06/09/25 14:33 Currently or been in a relationship where the following occur: No concerns reported Const General: no acute distress and alert HENMT Ears: TM's normal bilaterally and EAC's normal Throat: Yes posterior oropharynx normal and Yes tonsils normal (no TP congestion noted) Neck Neck: Yes no lymphadenopathy and Yes supple Thyroid: Thyroid normal Resp Auscultation: clear to auscultation bilaterally, no rales and no wheezes Cardio Rate: regular rate Rhythm: regular rhythm Heart sounds: no murmurs GI Palpation (GI): Soft to palpation and nontender Auscultation: normal bowel sounds General: Yes no CVA tenderness Back/Spine/Pelvis Back: no CVA tenderness Thoracic/Lumbar Spine: lumbar spinal tenderness Skin Rashes: no rashes Extrem General: Yes no clubbing, cyanosis or edema Results Reviewed Results Reviewed: Laboratory Tests 02/03/25 06/02/25 06/02/25 07:24 06:53 06:59 WBC 4.7 L Hgb 12.5 Hct 37.3 Plt Count 223 Sodium 142 Potassium 4.3 Creatinine 0.65 Estimated GFR > 60 Fasting Glucose 146 H Hemoglobin A1c % 6.6 H Calcium 8.9 AST 25 ALT 24 Triglycerides 60 Cholesterol 122 LDL Cholesterol, Calc 67 HDL Cholesterol 43 25-OH Vitamin D Total 42.8 Free T4 0.86 TSH 1.83 Ur Specific [place] 1.015 Urine Protein Negative Urine Glucose (UA) Negative Urine Blood Negative Urine Nitrite Negative Ur Leukocyte Esterase Negative Coding Level of Care Code TCM Mod MDM <= 14 Days Diagnoses Pure hypercholesterolemia E78.00 Type 2 diabetes mellitus with hyperglycemia, with long-term current use of insulin E11.65; Z79.4 Diabetes mellitus type: type 2 Diabetes mellitus terminologist insulin use: with terminologist use Diabetes mellitus complication status: with hyperglycemia Benign essential hypertension I10 Postablative hypothyroidism E89.0 Hypothyroidism type: postablative GERD without esophagitis K21.9 Lumbar spondylosis M47.816 Vitamin D deficiency E55.9 Episode of recurrent major depressive disorder, unspecified depression episode severity F33.9 Active/Remission status: currently active Major depression episode severity: unspecified Overweight (BMI 25.0-29.9) E66.3 Assessment & Plan Assessment & Plan (1) Pure hypercholesterolemia: Code(s): E78.00 - Pure hypercholesterolemia, unspecified Category: Medical Plan: Results of her labs done last week reviewed and discussed with patient Reinforced low cholesterol diet Continue Atorvastatin 10 mg QD Will recheck her labs and fasting lipids in 4 months for follow up (2) Diabetes mellitus: Code(s): E11.9 - Type 2 diabetes mellitus without complications Category: Medical Qualifiers: Diabetes mellitus type: type 2 Diabetes mellitus fci insulin use: with terminologist use Diabetes mellitus complication status: with hyperglycemia Qualified Code(s): E11.65 - Type 2 diabetes mellitus with hyperglycemia; Z79.4 - prison (current) use of insulin Plan: Her HgbA1c increased slightly to 6.6% on her labs done last week (was previously at 6.4% a few months ago) - goal is at least <7.0% Reinforced diabetic diet Continue Lantus 16 units Q HS, Trulicity 3 mg SQ once a week, Pioglitazone 30 mg QD and Jardiance 25 mg QD Patient used to see Jeanne Turner at [facility] but she has not been back there since Jeanne left the practice a few years ago We will consider referring her back to endocrinology if her diabetes control gets worse in the future (3) Benign essential hypertension: Code(s): I10 - Essential (primary) hypertension Category: Medical Plan: Reinforced low sodium diet - goal is systolic BP of 120 mm or less She was on Lisinopril 2.5 mg QD previously but states that she was taken off this by endocrinology a while back Discussed again that we may need to revisit this in the future more for re noprotection rather than for her blood pressure control (4) Hypothyroidism: Code(s): E03.9 - Hypothyroidism, unspecified Category: Medical Qualifiers: Hypothyroidism type: postablative Qualified Code(s): E89.0 - Postprocedural hypothyroidism Plan: Her TFTs remained normal on her recent labs Continue Levothyroxine 75 mcg QD Will recheck her TFTs in 4 months for follow up (5) GERD without esophagitis: Code(s): K21.9 - Gastro-esophageal reflux disease without esophagitis Category: Medical Plan: Dietary restrictions reinforced Her upper GI series done back in July 2023 revealed (+) significant reflux BUT there is also a focal area of contrast pooling in the greater curvature of the stomach suggestive of an ulcer She was then seen by GI for further evaluation - EGD and colonoscopy done back in July 2024 came back normal H. pylori breath test also came back negative She was previously on Omeprazole 20 mg QD and Sucralfate 1 gm QID but these were stopped and she was switched over to Famotidine 20 mg BID instead Follow up with GI as scheduled (6) Lumbar spondylosis: Code(s): M47.816 - Spondylosis without myelopathy or radiculopathy, lumbar region Category: Medical Plan: Reinforced activity and weight-lifting restrictions Lumbar spine x-rays done in June 2022 revealed (+) multilevel lumbar spondylosis from L4 through S1 In light of her comorbidities, including her GERD, she should continue to avoid all NSAIDs and continue on OTC Tylenol 500 mg Q 6 hours PRN for pain Repeat lumbar spine x-rays done back in July 2024 revealed (+) lumbar spondylosis with some interval progression as compared to previous Continue Tizanidine 4 mg TID PRN Discussed again option of referral to physical therapy and can also refer to pain management if she wants - states that she will call for referral(s) when needed (7) Vitamin D deficiency: Code(s): E55.9 - Vitamin D deficiency, unspecified Category: Medical Plan: Continue Vitamin D3 1000 units QD (8) Depression, major, recurrent: Code(s): F33.9 - Major depressive disorder, recurrent, unspecified Category: Medical Qualifiers: Active/Remission status: currently active Major depression episode severity: unspecified Qualified Code(s): F33.9 - Major depressive disorder, recurrent, unspecified Plan: Continue Citalopram 20 mg QD and Mirtazapine 7.5 mg Q HS Follow up with psychiatry as scheduled (9) Overweight (BMI 25.0-29.9): Code(s): E66.3 - Overweight Category: Medical Plan: Reinforced diet/exercise as tolerated/lose weight Plan Follow up in 4 months Orders: Orders Complete Blood Count Auto Diff 4 Months D64.9 - Anemia, unspecified Comprehensive [place]. Panel Fast 4 Months E78.00 - Pure hypercholesterolemia, unspecified Lipid Panel 4 Months E78.00 - Pure hypercholesterolemia, unspecified Free T4 (Free Thyroxine) 4 Months E03.9 - Hypothyroidism, unspecified UA CC w/rflx Micro + Cult 4 Months R30.0 - Dysuria Thyroid Stimulating Hormone 4 Months E03.9 - Hypothyroidism, unspecified Hemoglobin A1c 4 Months E11.9 - Type 2 diabetes mellitus without complications Microalbumin, Random (w Creat) 4 Months E11.9 - Type 2 diabetes mellitus without complications Vitamin B12 and Folate 4 Months E53.8 - Deficiency of other specified B group vitamins Vitamin D 25-OH Total 4 Months E55.9 - Vitamin D deficiency, unspecified Medications: Refilled atorvastatin 10 mg PO DAILY 30 tabs 5RF 30 days E11.9 - Type 2 diabetes mellitus without complications Lantus Solostar U-100 Insulin (insulin glargine) 16 units (0.16 mL) subcut DAILY 15 mL 1RF 90 days NS E11.9 - Type 2 diabetes mellitus without complications, Z79.4 - 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
== END 2025-06-09 15:17 | disposition home or self-care (01) ==
LOC: HO.HMCH 13:55
PROVIDERS: PCP Internal Medicine; Visit Provider Internal Medicine
DX: E78.00 Pure hypercholesterolemia, unspecified (principal); E11.65 Type 2 diabetes mellitus with hyperglycemia; Z79.4 Long term (current) use of insulin; I10 Essential (primary) hypertension; E89.0 Postprocedural hypothyroidism; K21.9 Gastro-esophageal reflux disease without esophagitis; M47.816 Spondylosis without myelopathy or radiculopathy, lumbar region; E55.9 Vitamin D deficiency, unspecified; F33.9 Major depressive disorder, recurrent, unspecified; E66.3 Overweight

== ENCOUNTER → 2025-06-09 13:54 | Outpatient (BNVA) | payer OTHER, SELFPAY | PROVIDERS: PCP Internal Medicine; Visit Provider Internal Medicine | DX: I10 Essential (primary) hypertension (principal); E78.00 Pure hypercholesterolemia, unspecified; E11.65 Type 2 diabetes mellitus with hyperglycemia; E89.0 Postprocedural hypothyroidism; K21.9 Gastro-esophageal reflux disease without esophagitis; M47.816 Spondylosis without myelopathy or radiculopathy, lumbar region; E55.9 Vitamin D deficiency, unspecified; F33.9 Major depressive disorder, recurrent, unspecified; E66.3 Overweight; D64.9 Anemia, unspecified; R30.0 Dysuria; E53.8 Deficiency of other specified B group vitamins; Z79.4 Long term (current) use of insulin; Z68.27 Body mass index [BMI] 27.0-27.9, adult | CPT/HCPCS: 99212 ==